=== PATIENT | female | born 1960 | race Caucasian/White ===

== ENCOUNTER 2021-02-15 08:58 | Emergency (ER) | payer BC, SELFPAY ==
[2021-02-15 09:48] VITALS: BP 160/108; PULSE 87; RESP 18; TEMP 37.2; O2SAT 99
--- NOTE | 2021-02-15 10:13 | ED.GIBLEED ---
HPI - GI Bleed General Chief complaint: GI Bleed Stated complaint: abdominal pain, blood in stool Time Seen by Provider: 02/15/21 09:52 History of Present Illness HPI Narrative: Rectal bleeding since this last night. She had suddeen onset of lower abdominal cramping and diarrhea. She notes that this was associated with light headedness. EMS came and checked her and she chose not to come in. She had another episode this morning and passed a large clot and decided to come in she continues to have abdominal cramping and mild nausea. No fever. Related Data Home Medications Medication Instructions Recorded Confirmed celecoxib mg 02/15/21 02/15/21 citalopram mg 02/15/21 levothyroxine 02/15/21 lisinopril 02/15/21 Allergies Allergy/AdvReac Type Severity Reaction Status Date / Time gadobenic acid Allergy Unknown Verified 02/15/21 11:53 [From contrast - MRI] Iodinated Contrast Media Allergy Unknown Verified 02/15/21 11:53 iohexol Allergy Unknown Verified 02/15/21 11:53 [From contrast - CT, X-RAY] Review of Systems Review of Systems: All systems reviewed & are unremarkable except as noted in HPI and below Constitutional: Constitutional: Denies chills, Denies fever(s) and Denies weakness Cardiovascular: Cardiovascular: Denies chest pain Respiratory: Respiratory: Denies dyspnea Gastrointestinal: Gastrointestinal: Reports abdominal pain, Reports diarrhea, Reports nausea and Denies vomiting Genitourinary: Genitourinary: Denies hematuria and Denies dysuria Neurologic: Denies numbness and Denies weakness FOR[facility]LY [facility] Past Medical History Medical History (Updated 02/15/21 @ 11:49 by Noel Childs MD) HTN (hypertension) Hypothyroidism Social History Social History (Updated 02/15/21 @ 11:47 by Noel Childs MD) Smoking status: Never smoker Exam Const: General: healthy appearing, no acute distress and alert Orientation/consciousness: patient oriented x3 HENMT: Head: normal to inspection Neck: Neck: normal visual inspection Resp: Effort & Inspection: normal respiratory effort Auscultation: clear to auscultation bilaterally Cardio: Rate: regular rate Rhythm: regular rhythm GI: Inspection: non-distended GI Palp: Yes Soft to palpation and No Tenderness to palpation present (GI) Auscultation: normal bowel sounds Skin: General skin exam: normal color and no pallor Neuro: General: patient oriented x3, moves all extremities, no focal motor deficits and CN's II-XI intact bilaterally Speech: normal speech Extrem: General: normal to inspection Psych: Affect: Anxious affect present Course Vital Signs Vital signs: Vital Signs Temperature 37.2 C 02/15/21 09:48 Pulse Rate 87 02/15/21 09:48 Respiratory Rate 18 02/15/21 09:48 Blood Pressure 160/108 H 02/15/21 09:48 Pulse Oximetry 99 02/15/21 09:48 Temperature 37.2 C 02/15/21 09:48 Pulse Rate 77 02/15/21 12:32 Respiratory Rate 18 02/15/21 12:32 Blood Pressure 166/89 H 02/15/21 12:32 Pulse Oximetry 100 02/15/21 12:32 MDM - GI Bleed MDM Narrative Medical decision making narrative: H/H reassuring. Most likely infectious enteritis. Vitials stable. I will start antibiotics and have her follow-up with PCP for any continued issues. Differential Diagnosis Differential diagnosis: Likely hemorrhoids, infectious diarrhea, Lower gastrointestinal hemorrhage and hematochezia Medical Records Attestation: I reviewed the patient's medical records. Lab Data Attestation: I reviewed the patient's lab results. Result diagrams: 02/15/21 10:13 02/15/21 10:13 Labs: Lab Results 02/15/21 02/15/21 02/15/21 Range/Units 10:13 10:13 10:27 WBC 12.2 H (4.5-10.0) K/mm3 RBC 5.48 H (4.2-5.4) M/mm3 Hgb 15.5 H (12.0-15.0) g/dL Hct 49.0 H (37.0-47.0) % MCV 89.4 (80-100) fl MCH 28.3 (26-34) pg MCHC 31.6 L (32-36) g/dl RDW 13.2 (11.5-14.5) % Plt Count
[2021-02-15 10:33] LABS: Basophils Percent Auto 0.3 % (0.2-1.2); Eosinophils Absolute Auto 0.2 K/mm3 (0-0.3); Eosinophils Percent Auto 1.5 % (0-4.4); Hemoglobin 15.5 g/dL (12.0-15.0); Immature Granulocyte Absolute 0.05 K/mm3 (0.00-0.031); Immature Granulocyte Percent A 0.4 % (0-0.5); Lymphocytes Percent Auto 13.9 % (18.3-44.2); Mean Corpuscular HGB Conc 31.6 g/dl (32-36); Mean Corpuscular Hemoglobin 28.3 pg (26-34); Mean Corpuscular Volume 89.4 fl (80-100); Mean Platelet Volume 11.4 fl (7.4-10.4); Monocytes Percent Auto 8.1 % (2.6-8.5); Neutrophils Absolute Auto 9.2 K/mm3 (1.3-6.7); Neutrophils Percent Auto 75.8 % (45.5-73.1); Platelet Count Result 355 k/mm3 (150-375); Red Blood Count 5.48 M/mm3 (4.2-5.4); Red Cell Distribution Width 13.2 % (11.5-14.5); White Blood Count 12.2 K/mm3 (4.5-10.0)
[2021-02-15] MEDS: SODIUM CHLORIDE 0.9% IV 1,000 ML 999 ML IV CONT (10:37)
[2021-02-15 10:43] LABS: Alanine Aminotransferase 23 U/L (4-35); Albumin Level 4.7 g/dL (3.5-5.1); Alkaline Phosphatase 73 U/L (38-126); Anion Gap 10 mmol/L (8-16); Aspartate Amino Transferase 29 U/L (14-36); Bilirubin,Total 0.6 mg/dL (0.2-1.3); Blood Urea Nitrogen 10 mg/dL (7-17); Calcium 10.6 mg/dL (8.4-10.2); Carbon Dioxide 29 mmol/L (22-30); Chloride 103 mmol/L (98-107); Estimated CRCL calculation 90 ml/min; Estimated Glomerular Filt Rate > 60; Glucose 104 mg/dL (65-105); Potassium 3.7 mmol/L (3.4-5.0); Sodium 142 mmol/L (137-145)
[2021-02-15 10:50] LABS: Prothrombin Time 14.2 Seconds (11.1-14.7)
[2021-02-15 11:45] VITALS: BP 190/105
[2021-02-15 11:49] VITALS: BP 192/117
[2021-02-15 11:52] VITALS: BP 211/129; BP 212/129; PULSE 77; RESP 18; O2SAT 98
[2021-02-15] MEDS: AMOXICILLIN/CLAVULANATE K 875-125 MG TAB 1 TABLET PO (11:55)
--- NOTE | 2021-02-15 12:03 | PC.NURSE ---
Patient dropped first Augmentin tablet on floor.
[2021-02-15 12:05] VITALS: BP 210/113; PULSE 80; RESP 18; O2SAT 100
--- NOTE | 2021-02-15 12:05 | PC.NURSE ---
CA Childs notified of patient's current blood pressure of 210/113.
[2021-02-15] MEDS: LABETALOL HCL INJ 100 MG/20 ML VIAL 10 MG IV PUSH (12:14)
[2021-02-15 12:32] VITALS: BP 166/89; PULSE 77; RESP 18; O2SAT 100
== END 2021-02-15 12:32 | disposition home or self-care (01) ==
PROVIDERS: Emergency Provider Emergency Medicine
DX: K52.9 Noninfective gastroenteritis and colitis, unspecified (principal); I10 Essential (primary) hypertension; E03.9 Hypothyroidism, unspecified
CPT/HCPCS: 36415; 80053; 85025; 85610; 85730; 86850; 86900; 86901; 96361; 96374; 99284; A9270; J7030

== ENCOUNTER 2021-07-05 01:47 | Day surgery (SDC) | payer BC, SELFPAY ==
[2021-06-14 14:17] VITALS: BMI 37.8
[2021-07-05 08:35] VITALS: BP 175/105; PULSE 89; RESP 24; TEMP 36.3; O2SAT 100; BMI 38.9
[2021-07-05] MEDS: LACTATED RINGERS 1,000 ML 150 ML IV CONT (08:41)
--- NOTE | 2021-07-05 08:51 | WPDANESEPPF ---
Anes - Initial Pre Proc Eval Procedure: Operation Date: 07/05/21 09:30 Proposed Procedures p Screening Colonoscopy - Herber Andrew MD Date/Time: 07/05/21 08:51 Surgeon: Herber Andrew MD Pre Op Diagnosis: neoplasm screening Patient Data Age: 61 Gender: F Height: 1.65 m Weight: 106 kg Last Vital Signs Temp 36.3 C L 07/05/21 08:35 Pulse 89 07/05/21 08:35 Resp 24 H 07/05/21 08:35 BP 175/105 H 07/05/21 08:35 Pulse Ox 100 07/05/21 08:35 Allergies Allergy/AdvReac Type Severity Reaction Status Date / Time gadobenic acid Allergy Unknown unknow Verified 07/05/21 08:35 [From contrast - MRI] Iodinated Contrast Media Allergy Unknown Unknown Verified 07/05/21 08:35 iohexol Allergy Unknown Unknown Verified 07/05/21 08:35 [From contrast - CT, X-RAY] Home Medications Medication Instructions Recorded Confirmed Type celecoxib 100 mg PO BID 02/15/21 06/14/21 History citalopram 20 mg PO DAILY 02/15/21 06/14/21 History lisinopril 30 mg PO DAILY 02/15/21 06/14/21 History simvastatin 5 mg tablet 5 mg PO DAILY 04/08/21 06/14/21 History cholecalciferol (vitamin D3) 125 mcg PO DAILY 06/14/21 06/14/21 History [Vitamin D3] levothyroxine 112 mcg PO DAILY 06/14/21 06/14/21 History Patient hx anesthesia problems: none Family hx anesthesia problems: none Results Review: All pre-operative results and documents have been reviewed as part of the pre-operative evaluation. [facility] Past Medical History Medical History Anxiety Breast cancer Colon cancer screening Disorder of thyroid HTN (hypertension) Hypothyroidism Surgical History Surgical History H/O mastectomy Family History Family History Mother Cancer Hypertension Disorder of thyroid Social History Social History Smoking status: Never smoker Alcohol intake: current Drinks per week: 1 Substance use: current Substance use type: marijuana Other substance usage details: OCCASIONALLY Living arrangements: with family Spiritual care concerns: No Anes - Eval Final PreProcedure Day of Procedure 07/05/21 08:51 Patient weight: obese Heart: regular rate and rhythm Lungs: clear to auscultation Airway: Mallampati scale class II Neurological: alert and oriented Last oral intake: >/= 8 hours ASA classification: III Emergent: no Anesthetic plan: proceed Anesthesia type and monitoring: general GIVS and standard monitoring Results Review: All pre-operative results and documents have been reviewed as part of the pre-operative evaluation. Informed Consent: The patient's anesthetic plan and its attendant risks and benefits were discussed with the patient/family/POA. Questions were solicited and answers provided to the satisfaction of the patient/family/POA.
--- NOTE | 2021-07-05 09:02 | PM.HPGS ---
History of Present Illness History of Present Illness Consent: Risks, benefits, and alternatives have been discussed and questions answered. Patient agrees to proceed with procedure. Chief complaint: neoplasm screening Narrative: Araceli Lim is a 61 year old female here for first screening colonoscopy, previously had negative cologuard Review of Systems Constitutional: Constitutional: Denies headache(s) and Denies weakness Eyes: Eyes: Denies blurry vision ENT: Reports Normal hearing present, Denies headache(s) and Denies neck pain Cardiovascular: Cardiovascular: Denies chest pain and Denies dyspnea Respiratory: Respiratory: Denies dyspnea Gastrointestinal: Gastrointestinal: Reports no additional gastrointestinal complaints Genitourinary: Genitourinary: Denies dysuria Musculoskeletal: Musculoskeletal: Denies neck pain Integumentary/Breasts: Skin/Breast: Denies dry skin Neurologic: Reports Normal hearing present, Denies headache(s) and Denies weakness Psychiatric: Psychiatric: Denies anxiety Endocrine: Endocrine: Denies change in body appearance Hematologic/Lymphatic: Hematologic/Lymphatic: Denies easy bleeding Allergic/Immunologic: Allergic/Immunologic: Denies urticaria PMFSH Past Medical History Medical History Anxiety Breast cancer Colon cancer screening Disorder of thyroid HTN (hypertension) Hypothyroidism Surgical History Surgical History H/O mastectomy Family History Family History Mother Cancer Hypertension Disorder of thyroid Social History Social History Smoking status: Never smoker Alcohol intake: current Drinks per week: 1 Substance use: current Substance use type: marijuana Other substance usage details: OCCASIONALLY Living arrangements: with family Spiritual care concerns: No Meds Home Medications and Allergies Home Medications Medication Instructions Recorded Confirmed Type celecoxib 100 mg PO BID 02/15/21 06/14/21 History citalopram 20 mg PO DAILY 02/15/21 06/14/21 History lisinopril 30 mg PO DAILY 02/15/21 06/14/21 History simvastatin 5 mg tablet 5 mg PO DAILY 04/08/21 06/14/21 History cholecalciferol (vitamin D3) 125 mcg PO DAILY 06/14/21 06/14/21 History [Vitamin D3] levothyroxine 112 mcg PO DAILY 06/14/21 06/14/21 History Allergies Allergy/AdvReac Type Severity Reaction Status Date / Time gadobenic acid Allergy Unknown unknow Verified 07/05/21 08:35 [From contrast - MRI] Iodinated Contrast Media Allergy Unknown Unknown Verified 07/05/21 08:35 iohexol Allergy Unknown Unknown Verified 07/05/21 08:35 [From contrast - CT, X-RAY] Vital Signs Vital Signs - 24 hr 07/05/21 08:35 Temperature 97.3 F L Pulse Rate 89 Respiratory Rate 24 H Blood Pressure 175/105 H Pulse Oximetry 100 Exam Const: General: comfortable and no acute distress HENMT: General nose exam: Normal nares present Eyes: General: appearance normal, both eyes and all related structures Neck: Neck: no JVD Resp: Auscultation: clear to auscultation bilaterally Cardio: Rate: regular rate Rhythm: regular rhythm GI: Inspection: non-distended GI Palp: Yes Soft to palpation Skin: General skin exam: normal color Neuro: General: gait normal Speech: normal speech Extrem: General: normal to inspection Psych: Mental Status: mental status grossly normal Assessment and Plan Assessment and plan (1) Colon cancer screening: Code(s): Z12.11 - Encounter for screening for malignant neoplasm of colon Status: Acute Assessment and Plan: colonoscopy
[2021-07-05 09:29] VITALS: BP 175/105; PULSE 66; RESP 13; O2SAT 98
[2021-07-05 09:39] VITALS: BP 130/82; PULSE 65; RESP 16; O2SAT 97
[2021-07-05 09:49] VITALS: BP 145/87; PULSE 65; RESP 20; O2SAT 98
== END 2021-07-05 10:05 | disposition home or self-care (01) ==
PROVIDERS: PCP Family Medicine; Visit Provider Internal Medicine Gastroenterology
PROC: 0DJD8ZZ Inspection of Lower Intestinal Tract, Via Natural or Artificial Opening Endoscopic (ICD-10-PCS; CPT 45378; principal; 2021-07-05 09:30)
DX: Z12.11 Encounter for screening for malignant neoplasm of colon (principal); K64.8 Other hemorrhoids; D12.2 Benign neoplasm of ascending colon; D12.3 Benign neoplasm of transverse colon; F41.9 Anxiety disorder, unspecified; E03.9 Hypothyroidism, unspecified; F12.90 Cannabis use, unspecified, uncomplicated; E66.9 Obesity, unspecified; Z68.38 Body mass index [BMI] 38.0-38.9, adult
CPT/HCPCS: 45385; 88305; J2704; J7120

== ENCOUNTER 2022-03-17 07:53 | Outpatient (CLI) | payer BC, SELFPAY | END 2022-03-17 07:54 | disposition home or self-care (01) | LOC: ANHAUDASC 07:54 | PROVIDERS: PCP Family Medicine; Visit Provider Family Medicine | DX: H90.3 Sensorineural hearing loss, bilateral (principal) | CPT/HCPCS: 92557; 92567 ==

== ENCOUNTER 2022-06-01 08:00 | Outpatient (RCR) | payer BC, SELFPAY | END 2022-07-06 23:59 | disposition home or self-care (01) | LOC: ANHAUDASC 08:00 | PROVIDERS: PCP Family Medicine; Visit Provider Family Medicine | DX: Z46.1 Encounter for fitting and adjustment of hearing aid (principal) | CPT/HCPCS: 99199; V5261 ==

== ENCOUNTER 2022-07-26 09:24 | Outpatient (CLI) | payer BC, SELFPAY ==
--- NOTE | 2022-07-26 09:32 | ECG_ITS ---
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
[2022-07-26 10:02] LABS: Prothrombin Time 12.8 Seconds (11.1-14.7)
[2022-07-26 10:03] LABS: Partial Thromboplastin Time 26.5 SECONDS (22.3-36.8)
[2022-07-26 10:06] LABS: Anion Gap 9 mmol/L (8-16); Blood Urea Nitrogen 14 mg/dL (7-17); Calcium 9.9 mg/dL (8.4-10.2); Carbon Dioxide 29 mmol/L (22-30); Chloride 101 mmol/L (98-107); Estimated Glomerular Filt Rate > 60; Glucose 140 mg/dL (65-110); Potassium 4.2 mmol/L (3.4-5.0); Sodium 139 mmol/L (137-145)
== END 2022-07-26 09:25 | disposition home or self-care (01) ==
PROVIDERS: Anesthesiology; PCP Family Medicine; Visit Provider Urology
DX: N20.0 Calculus of kidney (principal); I10 Essential (primary) hypertension; Z79.899 Other long term (current) drug therapy; Z01.818 Encounter for other preprocedural examination; R94.31 Abnormal electrocardiogram [ECG] [EKG]
CPT/HCPCS: 36415; 80048; 85610; 85730; 87086; 93005

== ENCOUNTER 2022-07-29 01:05 | Day surgery (SDC) | payer BC, SELFPAY ==
--- NOTE | 2022-07-19 07:30 | PM.HPGS ---
History of Present Illness History of Present Illness Consent: Risks, benefits, and alternatives have been discussed and questions answered. Patient agrees to proceed with procedure. Chief complaint: right kidney stones Narrative: Araceli Lim is a 62 year old female with remote history of right ureteral injury during the gynecological surgery. She recently had some right flank pain and CT imaging that demonstrated a 12 mm lightly calcified stone overlying the right kidney. She presents for right ESWL. She is aware of the risk including, but not limited to, residual fragments that were a require additional intervention, postoperative hematuria and perinephric hematoma Review of Systems Cardiovascular: Cardiovascular: Denies chest pain, Denies lightheadedness, Denies palpitations and Denies dyspnea Respiratory: Respiratory: Denies dyspnea Gastrointestinal: Gastrointestinal: Denies diarrhea, Denies nausea and Denies vomiting Genitourinary: Genitourinary: Denies hematuria and Denies dysuria Endocrine: Endocrine: Denies palpitations PMFSH Past Medical History Medical History Anxiety Breast cancer Colon cancer screening Disorder of thyroid HTN (hypertension) Hypothyroidism Surgical History Surgical History H/O mastectomy Family History Family History Mother Cancer Hypertension Disorder of thyroid Social History Social History Smoking status: Never smoker Alcohol intake: current Drinks per week: 1 Substance use: current Substance use type: marijuana Other substance usage details: OCCASIONALLY Spiritual care concerns: No Meds Home Medications and Allergies Home Medications Medication Instructions Recorded Confirmed Type celecoxib 100 mg capsule 100 mg PO BID 02/15/21 06/14/21 History citalopram 20 mg tablet 20 mg PO DAILY 02/15/21 06/14/21 History lisinopril 30 mg tablet 30 mg PO DAILY 02/15/21 06/14/21 History simvastatin 5 mg tablet 5 mg PO DAILY 04/08/21 06/14/21 History cholecalciferol (vitamin D3) 125 125 mcg PO DAILY 06/14/21 06/14/21 History mcg (5,000 unit) tablet (Vitamin D3) levothyroxine 112 mcg tablet 112 mcg PO DAILY 06/14/21 06/14/21 History Allergies Allergy/AdvReac Type Severity Reaction Status Date / Time gadobenic acid Allergy Unknown unknow Verified 07/05/21 08:35 [From contrast - MRI] Iodinated Contrast Media Allergy Unknown Unknown Verified 07/05/21 08:35 iohexol Allergy Unknown Unknown Verified 07/05/21 08:35 [From contrast - CT, X-RAY] Exam Const: General: no acute distress Resp: Effort & Inspection: normal respiratory effort GI: Inspection: non-distended GI Palp: No abdominal tenderness and No Guarding due to palpation present (GI) Auscultation: normal bowel sounds Assessment and Plan Assessment and plan (1) Right renal stone: Code(s): N20.0 - Calculus of kidney Status: Acute Assessment and Plan: 12 mm slightly calcified right renal calculus. Plan for right ESWL. If there is difficulty visualizing the stone we will proceed with cystoscopy and right retrograde pyelography
[2022-07-25 08:44] VITALS: BMI 41.5
--- NOTE | 2022-07-25 08:51 | PC.NURSE ---
Report to the Outpatient Waiting Room, entrance under the green pavilion located off [facility], at time 6:00 on date 07/29/22. Planned Procedure Time: 7:30. Time changes happen often and if your time is changed the preop area will call you the afternoon before. - You and your visitor will be asked to self-screen and do not enter if you have any COVID symptoms. - Only one visitor is requested with a max of two and NO children visitors are allowed at this time. - The patient visitor may be requested to leave or wait in car when not with patient due to distancing restrictions. - A mask is optional within the hospital. Patients may have clear liquids (water, carbonated beverages, clear teas, apple juice) until 3 hours prior to surgery (4:30) with a maximum of 20 ounces. - No food from midnight until time of surgery Take the following medications with a SIP of water the morning of surgery: AMLODIPINE, CITALOPRAM, LEVOTHYROXINE Medications to discontinue per physician: CELEBREX, VITAMINS Date to take last dose: NO MORE UNTIL AFTER SURGERY Please no make-up, nail czech, hairspray, perfume, deodorant, or body powder the day of surgery. No jewelry (including any body piercings) or valuables the day of surgery, leave them at home. Please take a shower or bath the night before, or the morning of, surgery with an antibacterial soap. Wear comfortable, loose fitting clothing. - Jewelry must be removed prior to entering the operating room. Rings and piercings that are not removed may be cut off. - The hospital will not accept responsibility for valuables. - Please leave all valuables, including medications, at home the day of surgery. If you are going home after surgery, a licensed set key driver must drive you home. - NO public transportation without another adult if you receive anesthesia. - We recommend that an adult stay with you for 24 hours following discharge. - We also recommend that you do not drive, make important decision, drink alcoholic beverages, or take any drugs that were not prescribed by your health care provider for at least 24 hours after your discharge time. Follow any additional instructions given to you from your surgeon. If you or anyone in your household have experienced Covid symptoms in the past week, please notify your surgeon or the nurse liaison at the phone number below for possible testing. Telephone instructions given to PT - TORO LUCIA and asked if any additional questions and then verbalized understanding. Patient advised to call surgeon office or pre surgery nurse liaison [phone] if any additional questions.
--- NOTE | ~2022-07-29 | CT_ITS ---
EXAMINATION: CT abdomen pelvis wo con DATE: 07/29/2022 07:15 INDICATION: Right kidney stone. TECHNIQUE: Computed tomography (CT) of the abdomen and pelvis was performed without intravenous contr ast. Automated exposure control and iterative reconstruction technique were employed. The dose-length product was 747.52 mGy-cm. COMPARISON: CT abdomen and pelvis 03/27/2017 FINDINGS: The visualized portions of the lung bases demonstrate mild atelectasis. There is a cluster of nodules in left lower lobe measuring up to 5 mm, likely infection. No pleural effusion. The heart size is normal. No pericardial effusion. There is diffuse hepatic steatosis. The gallbladder, spleen, pancreas, and adrenal glands are normal. There is mild atrophy of right kidney. There is a 14 mm cys t in right kidney with 2 small wall calcifications. There is a 3 mm calcification in right kidney inf erior pole that may be parenchymal. There are phleboliths in the right ovarian vein. There are phlebo liths in the pelvis. There is a 14 mm cyst in left kidney. There is diverticulosis of the colon witho ut evidence of diverticulitis. The appendix is normal. There is an infraumbilical ventral hernia cont aining nonobstructed small and large bowel. There are no pathologically enlarged lymph nodes. There i s no free intraperitoneal fluid. There is an umbilical hernia containing fat. There is a supraumbilic al ventral hernia containing fat. There is moderate thoracolumbar spondylosis. IMPRESSION: 1. No definite urolithiasis. Calcifications in right kidney are likely parenchymal. 2. Multiple ventral hernias, one of which contains nonobstructed small and large bowel. Reviewed, dictated and finalized at location A. E SCENE INVESTIGATOR IMPRESSION: 1. No definite urolithiasis. Calcifications in right kidney are likely parenchy mal. 2. Multiple ventral hernias, one of which contains nonobstructed small and larg e bowel.
--- NOTE | ~2022-07-29 | XR_ITS ---
EXAMINATION: XR abdomen/kub 1V DATE: 07/29/2022 06:22 INDICATION: Kidney stone. TECHNIQUE: A supine view of the abdomen on 2 radiographs was obtained. COMPARISON: CT 03/27/2017 FINDINGS: There are no dilated loops of bowel. Bowel extends inferior to the bony pelvis correlating with a ventral hernia on the prior CT. There is a 2 mm stone in right kidney lower pole. There are nu merous calcifications overlying the pelvis. Again seen is a phlebolith in right ovarian vein at L5. T here are surgical clips in right lower quadrant. IMPRESSION: 1. 2 mm right kidney stone. 2. Calcifications in the pelvis, at least most of which are likely phleboliths. Distal ureteral stone cannot be excluded. Reviewed, dictated and finalized at location A. COLORER
--- NOTE | 2022-07-29 06:44 | WPDHPUPDATE1 ---
History and Physical Update Update Date/Time: 07/29/22 06:44 History and Physical has been reviewed, including an updated exam of the patient. There are NO changes in the patient's condition. Risks, benefits, and alternatives have been discussed and questions answered. Patient agrees to proceed with procedure.
[2022-07-29 06:45] VITALS: BP 143/76; PULSE 78; RESP 16; TEMP 36.2; O2SAT 98
[2022-07-29] MEDS: LACTATED RINGERS 1,000 ML 30 ML IV CONT (06:45)
--- NOTE | 2022-07-29 07:05 | WPDANESEPPF ---
Anes - Initial Pre Proc Eval Procedure: Operation Date: 07/29/22 07:30 Proposed Procedures p Right Extracorporeal Shock Wave Lithotripsy - Brian Perez MD s Possible Cystoscopy, Possible Right Retrograde Pyelogram - Brian Perez MD Date/Time: 07/29/22 07:05 Surgeon: Brian Perez MD Pre Op Diagnosis: right kidney stones Patient Data Age: 62 Gender: F Height: 1.65 m Weight: 113.4 kg Allergies Allergy/AdvReac Type Severity Reaction Status Date / Time gadobenic acid Allergy Unknown Hives Verified 07/25/22 08:41 [From contrast - MRI] Iodinated Contrast Media Allergy Unknown Hives Verified 07/25/22 08:41 iohexol Allergy Unknown Hives Verified 07/25/22 08:41 [From contrast - CT, X-RAY] adhesive tape Allergy Blister Verified 07/25/22 08:42 Home Medications Medication Instructions Recorded Confirmed Type celecoxib 100 mg capsule 100 mg PO BID 02/15/21 07/25/22 History citalopram 20 mg tablet 20 mg PO DAILY 02/15/21 07/25/22 History lisinopril 30 mg tablet 30 mg PO DAILY 02/15/21 07/25/22 History simvastatin 5 mg tablet 5 mg PO DAILY 04/08/21 07/25/22 History cholecalciferol (vitamin D3) 125 125 mcg PO DAILY 06/14/21 07/25/22 History mcg (5,000 unit) tablet (Vitamin D3) levothyroxine 112 mcg tablet 112 mcg PO DAILY 06/14/21 07/25/22 History amlodipine 5 mg tablet 5 mg PO DAILY 07/25/22 07/25/22 History hydrochlorothiazide 12.5 mg tablet 12.5 mg PO DAILY 07/25/22 07/25/22 History Patient hx anesthesia problems: post op nausea/vomiting Family hx anesthesia problems: none Results Review: All pre-operative results and documents have been reviewed as part of the pre-operative evaluation. [facility]LY [facility], [facility] Past Medical History Medical History Anxiety Breast cancer Colon cancer screening Disorder of thyroid HTN (hypertension) Hypothyroidism Surgical History Surgical History H/O mastectomy Family History Family History Mother Cancer Hypertension Disorder of thyroid Social History Social History Smoking status: Never smoker Alcohol intake: current Drinks per week: 1 Alcohol use details: 2 Substance use: former Substance use type: marijuana Other substance usage details: OCCASIONALLY Living arrangements: with family Spiritual care concerns: No Anes - Eval Final PreProcedure Day of Procedure 07/29/22 07:05 Patient weight: morbidly obese Heart: regular rate and rhythm Lungs: clear to auscultation Airway: Mallampati scale class II Neurological: alert and oriented Last oral intake: >/= 8 hours ASA classification: III Emergent: no Anesthetic plan: proceed Anesthesia type and monitoring: general LMA and standard monitoring Results Review: All pre-operative results and documents have been reviewed as part of the pre-operative evaluation. Informed Consent: The patient's anesthetic plan and its attendant risks and benefits were discussed with the patient/family/POA. Questions were solicited and answers provided to the satisfaction of the patient/family/POA.
--- NOTE | 2022-07-29 09:38 | SUR.PREOP ---
0742: surgery cancelled as stone is not visible via kub and ct. after pt and katie pace, plan to cancel surgery today and re-eval in 6mo in office. dc instructions given an pt dc'd w/ partner ambulatory.
== END 2022-07-29 09:42 | disposition home or self-care (01) ==
PROVIDERS: PCP Family Medicine; Visit Provider Urology
PROC: (CPT 50590; principal; 2022-07-29 07:30)
PROC: (CPT 52352; 2022-07-29 07:30)
DX: N20.0 Calculus of kidney (principal); I10 Essential (primary) hypertension; E03.9 Hypothyroidism, unspecified; F41.9 Anxiety disorder, unspecified; Z85.3 Personal history of malignant neoplasm of breast; F12.90 Cannabis use, unspecified, uncomplicated; Z53.8 Procedure and treatment not carried out for other reasons
CPT/HCPCS: 36415; 74018; 74176; 80048; 85610; 85730; 87086; 93005; 99211; A9270; G0463; J2250; J3010; J7030; J7120

== ENCOUNTER 2023-11-22 21:08 | Emergency (ER) | payer BC, SELFPAY ==
--- NOTE | ~2023-11-22 | XR_ITS ---
EXAM: XR shoulder RT min 2V DATE: 11/22/2023 21:31 HISTORY: fall WITH RIGHT SHOULDER PAIN . COMPARISON: None available. FINDINGS: Surgical clips project over the right axilla, right lung apex, and right hilum. Normal min eralization. No fracture or dislocation. No lytic or blastic lesion. Mild acromioclavicular joint and glenohumeral joint osteoarthritis. No erosion or periosteal change. Soft tissues within normal limit s. IMPRESSION: No acute osseous finding in the right shoulder. Reviewed, dictated and finalized at location K.
--- NOTE | ~2023-11-22 | XR_ITS ---
EXAMINATION: [id number] Exam Date/Time: 11/22/2023 21:35 CDT HISTORY: right rib pain after fall Comparison: None available. RESULT: Lines, tubes, and devices: Bilateral axillary surgical clips. Additional surgical clips project over the bilateral florencio and chest. Lungs and pleura: Clear. Cardiothymic silhouette: Stable. Other: No acute osseous or upper abdominal finding. IMPRESSION: No acute cardiopulmonary process. No acute osseous finding in the right ribs. Reviewed, dictated and finalized at location K.
[2023-11-22 21:09] VITALS: BP 149/83; PULSE 72; RESP 19; TEMP 36.6; O2SAT 100
--- NOTE | 2023-11-22 21:41 | ED.GENADULT ---
HPI - General Adult General Chief complaint: Extremity Injury, Upper Stated complaint: shoulder injury Time Seen by Provider: 11/22/23 21:17 Source: patient Mode of arrival: ambulatory Limitations: no limitations History of Present Illness HPI narrative: this is a 63-year-old female who presents to the ED with chief complaint of right shoulder injury that occurred just prior to arrival. Patient was going down steps, missed the last step and fell into the wall. States that she braced her fall with her right arm and had pain to the right shoulder. she reports that she went to the ground but did not have any head injury or LOC. reports some mild right-sided rib pain as well. Denies shortness of breath, cough, numbness, weakness or other site of injury. Related Data Home Medications Medication Instructions Recorded Confirmed celecoxib 100 mg capsule 100 mg PO BID 02/15/21 07/29/22 citalopram 20 mg tablet 20 mg PO DAILY 02/15/21 07/29/22 lisinopril 30 mg tablet 30 mg PO DAILY 02/15/21 07/29/22 simvastatin 5 mg tablet 5 mg PO DAILY 04/08/21 07/29/22 cholecalciferol (vitamin D3) 125 125 mcg PO DAILY 06/14/21 07/29/22 mcg (5,000 unit) tablet (Vitamin D3) levothyroxine 112 mcg tablet 112 mcg PO DAILY 06/14/21 07/29/22 amlodipine 5 mg tablet 5 mg PO DAILY 07/25/22 07/29/22 hydrochlorothiazide 12.5 mg tablet 12.5 mg PO DAILY 07/25/22 07/29/22 Allergies Allergy/AdvReac Type Severity Reaction Status Date / Time gadobenic acid Allergy Unknown Hives Verified 11/22/23 21:13 [From contrast - MRI] Iodinated Contrast Media Allergy Unknown Hives Verified 11/22/23 21:13 iohexol Allergy Unknown Hives Verified 11/22/23 21:13 [From contrast - CT, X-RAY] adhesive tape Allergy Blister Verified 11/22/23 21:13 Review of Systems Review of Systems: All systems as dictated in [facility] Past Medical History Medical History Anxiety Breast cancer Colon cancer screening Disorder of thyroid HTN (hypertension) Hypothyroidism Surgical History Surgical History H/O mastectomy Family History Family History Mother Cancer Hypertension Disorder of thyroid Social History Social History Smoking status: Never smoker Alcohol intake: current Drinks per week: 1 Alcohol use details: 2 Substance use: former Substance use type: marijuana Other substance usage details: OCCASIONALLY Living arrangements: with family Spiritual care concerns: No Exam Narrative: GENERAL: Well-appearing, well-nourished, and in no acute distress. HEAD: Normocephalic, atraumatic. EYES: PERRLA and EOMI. ENT: Nares clear, no rhinorrhea or epistaxis. Mucous membranes moist. Oropharynx without tonsillar hypertrophy exudate or other lesions. NECK: Supple. No adenopathy or masses. CHEST: No respiratory distress. Clear to auscultation. No wheezes rales or rhonchi . Minimal tenderness to the chest wall. No bruising. HEART: Regular rate and rhythm. No murmur heard. Normal peripheral pulses. ABDOMEN: Soft, nontender, nondistended, normal active bowel sounds. MSK: Difficulty with range of motion of the right shoulder. No deformity. Mild tenderness throughout the right shoulder. Positive empty can test on the right. Neurovascularly intact distally. SKIN: Warm, dry, no rash. NEURO: Alert and oriented x3. No focal deficits. PSYCH: Normal mood and affect. Course Vital Signs Vital signs: Vital Signs Temperature 97.8 F 11/22/23 21:09 Pulse Rate 72 11/22/23 21:09 Respiratory Rate 19 11/22/23 21:09 Blood Pressure 149/83 H 11/22/23 21:09 Pulse Oximetry 100 11/22/23 21:09 Temperature 97.8 F 11/22/23 21:09 Pulse Rate 72 11/22/23 21:09 Respiratory Rate 19 11/22/23 21:
[2023-11-22] MEDS: HYDROcodone/acetaminophen (*CRX) 5-325 MG TABLET 1 TAB PO (21:47)
== END 2023-11-22 22:35 | disposition home or self-care (01) ==
PROVIDERS: Emergency Provider Physician Assistant; PCP Family Medicine Sports Medicine
DX: S46.911A Strain of unspecified muscle, fascia and tendon at shoulder and upper arm level, right arm, initial encounter (principal); I10 Essential (primary) hypertension; E03.9 Hypothyroidism, unspecified; Z85.3 Personal history of malignant neoplasm of breast; F41.9 Anxiety disorder, unspecified; Z90.10 Acquired absence of unspecified breast and nipple; W10.9XXA Fall (on) (from) unspecified stairs and steps, initial encounter
CPT/HCPCS: 71101; 73030; 99284; A4565; A9270

== ENCOUNTER 2025-03-10 07:55 | Outpatient (CLI) | payer BC, SELFPAY ==
--- OUTSIDE RECORDS SUMMARY | 2025-03-10 07:59 | XMS_ITS | Encounter Summary ---
Author Organization [employer] Address [address] [place] [address] Care Team Providers Care Powdered Sugar Supervisor Name Role Phone Lucero Chirinos MD Primary Care Provider [phone] Encounter Details Date Type Department Care Team (Late st Contact Info) Description 11/19/2007 Outpatient Historical [facility] Bismark Jade MD [address] [facility] [address] [place] [address] [place] [address] [facility] [address] [place] [address] Other Ureteric Obstruction Social History Tobacco Use Types Packs/Day Years Used Date Smoking Tobacco: Never Assessed Comments Unknown Sex and Gender Information Value Date Recorded Sex Assigned at Not on file 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 Gender Identity Not on file Sexual Orientation Not on file documented as of this encounter Plan of Treatment Not on file documented as of this encounter Procedures Procedure Name Priority Date/Time Associated Diagnosis Comments XR CYSTOGRAM Timed Study 11/19/2007 2:00 PM CDT documented in this encounter Results * XR CYSTOGRAM (11/19/2007 2:00 PM CDT) Anatomical Region Laterality Modality Pelvis Other 11/19/2007 2:00 PM CDT Narrative 11/22/2007 11:28 AM CDT [facility] [address] [place], [place] [address] Admit Date: 11/19/2007 ARACELI LIM Sex: F Admit Prov: BISMARK JADE Date: 1960 Primary Care Prov: CMRN: [id number] [facility] [address] [place] [address] IMAGING SERVICES Ordering Prov: N/A Accession Number: [id number] Interpretation Cystogram 11/19/2007 History: 593.4, ureteral obstruction Findings: The hospital clinic assistant radiograph demonstrates a nephrostomy tube in place on the right. Right internal ureteral stent and Yadav catheter are also in place. There are surgical clips in the pelvis on the right and skin bebeto in the low anterior abdominal wall. Water-soluble contrast was injected into the bladder through the existing Yadav catheter. Contrast fills a grossly normal appearing urinary bladder. There is no evidence of extravasation. There is no evidence of reflux into the right renal collecting system. Post drainage radiograph is normal. Impression: 1. Postoperative changes. 2. Otherwise normal cystogram. . Dictated by: JHONATAN STEPHEN 11/19/2007 15:38 Electronically signed by: JHONATAN STEPHEN 11/22/2007 11:28 Transcribed: 11/19/2007 18:12 AMK Procedure Note Jhonatan Stephen MD - 11/22/2007 [place] [id number] [place], [place] [address] Admit Date: 11/19/2007 ARACELI LIM Sex: F Admit Prov: BISMARK JADE Date: 1960 Primary Care Prov: CMRN: [id number] [facility] [id number] IMAGING SERVICES Ordering Prov: N/A Interpretation Cystogram 11/19/2007 History: 593.4, ureteral obstruction Findings: The hospital clinic assistant radiograph demonstrates a nephrostomy tube inplace on the right. Right internal ureteral stent and Yadav catheter are alsoin place. There are surgical clips in the pelvis on the right and skinstaples in the low anterior abdominal wall. Water-soluble contrast wasinjected into the bladder through the existing Yadav catheter. Contrast fillsa grossly normal appearing urinary bladder. There is no evidence of extravasation. There is no evidence of reflux into the right renal collecting system. Post drainage radiograph is normal. Impression: 1. Postoperative changes. 2. Otherwise normal cystogram. . Dictated by: JHONATAN STEPHEN 11/19/2007 15:38 Electronically signed by: JHONATAN STEPHEN 11/22/2007 11:28 Transcribed: 11/19/2007 18:12 AMK us Bismark K Kalie NO DIAGNOSTIC IMAGING ORDERABLE S Final Result documented in this encounter Visit Diagnoses Diagnosis Other ureteric obstruction documented in this encounter Care Teams Powdered Sugar Supervisor Relationship Specialty Start Date End Date Lucero Chirinos MD PCP - General Family Practice 01/22/15 documented as of this encounter
--- OUTSIDE RECORDS SUMMARY | 2025-03-10 07:59 | XMS_ITS | Encounter Summary ---
Author Organization [facility] Address [address] [place] [address] Phone Care Team Providers Care Rawhide Bone Roller Name Role Phone Lucero Chirinos MD Primary Care Provider Reason for Visit * Reason Comments Medication Refill Encounter Details Date Type Department Care Team (Late st Contact Info) Description 10/14/2021 Refill [facility] - Primary Care - [place] [address] [place] [address] Lucero Chirinos MD [address] [place] [address] Medication Refill Social History Tobacco Use Types Packs/Day Years Used Date Smoking Tobacco: Never Smokeless Tobacco: Never Alcohol Use Standard Drinks/Week Comments No 0 (1 standard drink = 0.6 oz pur e alcohol) PHQ-2 Answer Date Recorded Total Score - Questions 1-9 0 08/28 Education Answer Date Recorded What is the highest level of school you have completed or the highest degree you have received? Bachelor's degree (e.g., BA, AB, BS) 03/25/2021 Sexually Active Control Partners Comments Yes Comments No Sex and Gender Information Value Date Recorded Sex Assigned at Not on file Legal Sex Female 12:01 AM CDT Gender Identity Not on file Sexual Orientation Not on file documented as of this encounter Miscellaneous Notes * Telephone Encounter - Ana Ulrich RN - 10/14/2021 10:42 AM WAREHOUSE PROCESSOR Medication failed the protocol, provider to review and approve the medication order if appropriate. Requested Prescriptions Pending Prescriptions Disp Refills levothyroxine (SYNTHROID) 112 MCG Tablet [Pharmacy Med Name: LEVOTHYROXINE 0.112MG (112MCG) TABS] 90 Tablet 1 Sig: TAKE 1 TABLET BY MOUTH DAILY Thyroid Hormones Protocol Failed - 10/14/2021 10:32 AM Failed - Active on medication list Failed - Normal TSH in past 12 months TSH Date Value Ref Range Status 03/22/2021 0.069 (L) 0.270 - 4.200 mIU/L Final Passed - Visit with relevant provider in past 12 months or upcoming 90 days Recent Visits Date Type Provider Dept 03/26/21 Office Visit Lucero Chirinos MD [facility] [place] [address] 02/22/21 Office Visit Chrissy Melissa APRN, CUSTOM BOOKBINDER [facility] [address] [facility] Showing recent visits within past 365 days and meeting all other requirements Future Appointments No visits were found meeting these conditions. Showing future appointments within next 90 days and meeting all other requirements Signed Prescriptions Disp Refills simvastatin (ZOCOR) 10 MG Tablet 90 Tablet 1 Sig: TAKE 1 TABLET BY MOUTH EVERY EVENING Hmg CoA Reductase Inhibitors Protocol Passed - 10/14/2021 10:32 AM Passed - Visit with relevant provider in past 12 months or upcoming 90 days Recent Visits Date Type Provider Dept 03/26/21 Office Visit Lucero Chirinos MD [facility] [place] [address] 02/22/21 Office Visit Chrissy Melissa APRN, CUSTOM BOOKBINDER [facility] [place] [address] Showing recent visits within past 365 days and meeting all other requirements Future Appointments No visits were found meeting these conditions. Showing future appointments within next 90 days and meeting all other requirements Passed - Lipid panel in past 12 months LDL Date Value Ref Range Status 03/22/2021 70 5 - 130 mg/dL Final HDL CHOLESTEROL Date Value Ref Range Status 03/22/2021 42.9 >40 mg/dL Final CHOLESTEROL Date Value Ref Range Status 03/22/2021 137 <=200 mg/dL Final TRIGLYCERIDES Date Value Ref Range Status 03/22/2021 119 <150 mg/dL Final VLDL Date Value Ref Range Status 03/22/2021 24 5 - 55 mg/dL Final CHOL/HDL RATIO Date Value Ref Range Status 03/22/2021 3.2 0.0 - 4.4 Final NON-HDL CHOLESTEROL Date Value Ref Range Status 03/22/2021 94.1 <130 mg/dL Final HOUSE PROCESSOR documented in this encounter Plan of Treatment Not on file documented as of this encounter Visit Diagnoses Diagnosis Acquired hypothyroidism Unspecified hypothyroidism documented in this encounter Additional Health Concerns Assessment Noted Time PHQ-9 Depression Total Score: 0 09/14/19 21 4:00 PM WAREHOUSE PROCESSOR documented as of this encounter Care Teams Rawhide Bone Roller Relationship Specialty Start Date End Date Lucero Chirinos MD PCP - General Family Medicine 05/26/15 12/09/22 documented as of this encounter
--- OUTSIDE RECORDS SUMMARY | 2025-03-10 07:59 | XMS_ITS | Encounter Summary ---
Author Organization [employer] Address [address] [place] [address] Care Team Providers Care Deputy Grand Jury Name Role Phone Lucero Chirinos MD Primary Care Provider [phone] Encounter Details Date Type Department Care Team (Late st Contact Info) Description 11/26/2007 Outpatient Historical [facility] Bismark Jade MD [address] [address] David Thomas MD Department of Radiology [address] [place], [place] [id number] Other Ureteric Obstruction Social History Tobacco Use Types Packs/Day Years Used Date Smoking Tobacco: Never Assessed Comments Unknown Sex and Gender Information Value Date Recorded Sex Assigned at Not on file 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 Gender Identity Not on file Sexual Orientation Not on file documented as of this encounter Plan of Treatment Not on file documented as of this encounter Procedures Procedure Name Priority Date/Time Associated Diagnosis Comments IR TUBE PLACEMENT Routine 11/26/2007 10: 54 AM CDT documented in this encounter Results * IR TUBE PLACEMENT (11/26/2007 10:54 AM CDT) Anatomical Region Laterality Modality Other 11/26/2007 10:5 4 AM CDT Narrative 11/26/2007 4:48 PM CDT [facility] [address] [place], [place] [address] Admit Date: 11/26/2007 ARACELI LIM Sex: F Admit Prov: BISMARK JADE Date: 1960 Primary Care Prov: CMRN: [id number] [facility] [address] [place] [address] IMAGING SERVICES Ordering Prov: N/A Accession Number: [id number] Interpretation Right-sided antegrade nephrostogram and nephrostomy catheter removal on 11/26/2007 History: 47-year-old female with an indwelling right-sided nephrostomy catheter presents for evaluation and possible removal or exchange. Surgeon: David Thomas MD Indication: None Anesthesia: 1% lidocaine locally Procedure: Contrast was injected through an indwelling right-sided nephrostomy catheter demonstrating distal patency into the bladder. The catheter was then removed. The patient tolerated the procedure well. Impression: Patent right-sided ureter as described above. Removal of right-sided nephrostomy catheter. Please read report. . Dictated by: DAVID THOMAS F 11/26/2007 14:11 Electronically signed by: DAVID THOMAS F 11/26/2007 16:48 Transcribed: 11/26/2007 14:33 AMK Procedure Note David Thomas MD - 11/26/2007 [place] [id number] [place], [place] [address] Admit Date: 11/26/2007 ARACELI LIM Sex: F Admit Prov: BISMARK JADE Date: 1960 Primary Care Prov: CMRN: [id number] [facility] [id number] IM[facility]ING SERVICES Ordering Prov: N/A Interpretation Right-sided antegrade nephrostogram and nephrostomy catheter removalon 11/26/2007 History: 47-year-old female with an indwelling right-sidednephrostomy catheter presents for evaluation and possible removal or exchange. Surgeon: David Thomas MD Indication: None Anesthesia: 1% lidocaine locally Procedure: Contrast was injected through an indwelling right-sided nephrostomy catheter demonstrating distal patency into the bladder. The catheter was then removed. The patient tolerated the procedure well. Impression: Patent right-sided ureter as described above. Removal of right-sided nephrostomy catheter. Please read report. . Dictated by: DAVID THOMAS 11/26/2007 14:11 Electronically signed by: DAVID THOMAS 11/26/2007 16:48 Transcribed: 11/26/2007 14:33 AMK us Bismark K Kalie NO IR ORDERABLES Final Result documented in this encounter Visit Diagnoses Diagnosis Other ureteric obstruction documented in this encounter Care Teams Deputy Grand Jury Relationship Specialty Start Date End Date Lucero Chirinos MD PCP - General Family Practice 01/22/15 documented as of this encounter
--- OUTSIDE RECORDS SUMMARY | 2025-03-10 07:59 | XMS_ITS | Encounter Summary ---
Author Organization [facility] Address [address] [place] [address] Phone Care Team Providers Care Director Correctional Agency Name Role Phone Lucero Chirinos MD Primary Care Provider Reason for Visit * Reason Comments Medication Refill Encounter Details Date Type Department Care Team (Late st Contact Info) Description 09/29/2020 Refill [facility] - Primary Care - Amanda [address] [place] [address] Lucero Chirinos MD [address] [place] [address] Medication Refill Social History Tobacco Use Types Packs/Day Years Used Date Smoking Tobacco: Never Smokeless Tobacco: Never Alcohol Use Standard Drinks/Week Comments No 0 (1 standard drink = 0.6 oz pur e alcohol) PHQ-2 Answer Date Recorded Total Score - Questions 1-9 0 08/28 Sexually Active Control Partners Comments Yes Comments No Sex and Gender Information Value Date Recorded Sex Assigned at Not on file Legal Sex Female 12:01 AM CDT Gender Identity Not on file Sexual Orientation Not on file COVID-19 Exposure Response Date Recorded In the last month, have you been in contact with someone who was confirmed or suspected to have Coronavirus / COVID-19? No / Unsure 09/14/2020 3:59 PM SOCIAL SERVICE DIRECTOR documented as of this encounter Miscellaneous Notes * Telephone Encounter - Kalli Morales, ARIC - 09/29/2020 9:40 AM CST Per nursing clinical judgement, provider to review and approve the medication(s) order(s) if appropriate. Requested Prescriptions Pending Prescriptions Disp Refills simvastatin (ZOCOR) 10 MG Tablet [Pharmacy Med Name: SIMVASTATIN 10MG TABLETS] 90 Tab Sig: TAKE 1 TABLET BY MOUTH EVERY EVENING Cardiovascular: Antilipid - HMG-CoA Reductase Inhibitors Passed - 09/29/2020 9:40 AM Passed - Valid encounter within last 12 months Past Office Visits Recent Outpatient Visits 2 weeks ago Essential hypertension [facility] Lucero Chirinos MD 6 months ago Physical exam, annual (Adult) [facility] Lucero Chirinos MD 1 year ago Essential hypertension [facility] Lucero Chirinos MD 1 year ago Physical exam, annual (Adult) [facility] Lucero Chirinos MD 2 years ago Essential hypertension [facility] Lucero Chirinos MD Upcoming Appointments Future Appointments In 3 months Lucero Chirinos MD [facility] - Recent and Past Visits Recent Visits Date Type Provider Dept 09/14/20 Office Visit Lucero Chirinos MD [facility] 03/10/20 Office Visit Lucero Chirinos MD [facility] 07/22/19 Office Visit Lucero Chirinos MD [facility] Showing recent visits within past 460 days with a meds authorizing provider and meeting all other requirements Future Appointments No visits were found meeting these conditions. Showing future appointments within next 90 days with a meds authorizing provider and meeting all other requirements Signed Prescriptions Disp Refills Lisinopril 30 MG Tablet 90 Tab 1 Sig: TAKE 1 TABLET BY MOUTH DAILY Cardiovascular: BRIDGETT Inhibitors Passed - 09/29/2020 6:49 AM Passed - Valid encounter within last 12 months Past Office Visits Recent Outpatient Visits 2 weeks ago Essential hypertension [facility] Lucero Chirinos MD 6 months ago Physical exam, annual (Adult) [facility] Lucero Chirinos MD 1 year ago Essential hypertension [facility] Lucero Chirinos MD 1 year ago Physical exam, annual (Adult) [facility] Lucero Chirinos MD 2 years ago Essential hypertension [facility] Lucero Chirinos MD Upcoming Appointments Future Appointments In 3 months Lucero Chirinos MD [facility] INSIDE SALES ACCOUNT REPRESENTATIVE - Recent and Past Visits Recent Visits Date Type Provider Dept 09/14/20 Office Visit Lucero Chirinos MD [facility] 03/10/20 Office Visit Lucero Chirinos MD [facility] 07/22/19 Office Visit Lucero Chirinos MD [facility] Showing recent visits within past 460 days with a meds authorizing provider and meeting all other requirements Future Appointments No visits were found meeting these conditions. Showing future appointments within next 90 days with a meds authorizing provider and meeting all other requirements Passed - Last BP in normal range BP Readings from Last 1 Encounters: 09/14/20 130/80 celecoxib (CeleBREX) 100 MG Capsule 180 Cap 1 Sig: TAKE 1 CAPSULE BY MOUTH TWICE DAILY Analgesics: COX2 Inhibitors Passed - 09/29/2020 6:49 AM Passed - Valid encounter within last 6 months Past Office Visits Recent Outpatient Visits 2 weeks ago Essential hypertension [facility] Lucero Chirinos MD 6 months ago Physical exam, annual (Adult) [facility] Lucero Chirinos MD 1 year ago Essential hypertension [facility] Lucero Chirinos MD 1 year ago Physical exam, annual (Adult) [facility] Lucero Chirinos MD 2 years ago Essential [facility] Chirinos MD Upcoming Appointments Future Appointments In 3 months Lucero Chirinos MD [facility] Medical [facility] INSIDE SALES ACCOUNT REPRESENTATIVE - Recent and Past Visits Recent Visits Date Type Provider Dept 09/14/20 Office Visit Lcuero Chirinos MD [facility] 03/10/20 Office Visit Lucero Chirinos MD [facility] 07/22/19 Office Visit Lucero Chirinos MD [facility] Showing recent visits within past 460 days with a meds authorizing provider and meeting all other requirements Future Appointments No visits were found meeting these conditions. Showing future appointments within next 90 days with a meds authorizing provider and meeting all other requirements AL SERVICE DIRECTOR documented in this encounter Plan of Treatment Not on file documented as of this encounter Visit Diagnoses Diagnosis Essential hypertension Unspecified essential hypertension documented in this encounter Additional Health Concerns Assessment Noted Time PHQ-9 Depression Total Score: 0 09/14/19 21 4:00 PM SOCIAL SERVICE DIRECTOR documented as of this encounter Care Teams Director Correctional Agency Relationship Specialty Start Date End Date Lucero Chirinos MD PCP - General Family Medicine 05/26/15 12/09/22 documented as of this encounter
--- OUTSIDE RECORDS SUMMARY | 2025-03-10 07:59 | XMS_ITS | Encounter Summary ---
Author Organization [facility] Address [address] [place] [address] Phone Care Team Providers Care Environmental Technology Professor Name Role Phone Lucero Chirinos MD Primary Care Provider Reason for Visit * Reason Comments Medication Refill Encounter Details Date Type Department Care Team (Late st Contact Info) Description 01/03/2021 Refill [facility] - Primary Care - Amanda [address] [place] [address] Lucero Chirinos MD [address] [place] [address] Medication Refill Social History Tobacco [...] Miscellaneous Notes * Telephone Encounter - Kalli Morales RN - 01/04/2021 9:58 AM CDT Medication failed the protocol, provider to review and approve the medication order if appropriate. Requested Prescriptions Pending Prescriptions Disp Refills citalopram (CeleXA) 20 MG Tablet [Pharmacy Med Name: CITALOPRAM 20MG TABLETS] 90 Tablet 1 Sig: TAKE 1 TABLET BY MOUTH DAILY [facility] Not Delegated - Psychiatry: Antidepressants Failed - 01/03/2021 5:51 AM Failed - This refill cannot be delegated Passed - Valid encounter within last 12 months Past Office Visits Recent Outpatient Visits 3 months ago Essential hypertension [facility] Lucero Chirinos MD 10 months ago Physical exam, annual (Adult) [facility] Lucero Chirinos MD 1 year ago Essential hypertension [facility] Lucero Chirinos MD 2 years ago Physical exam, annual (Adult) [facility] Lucero Chirinos MD 2 years ago Essential hypertension [facility] Lucero Chirinos MD Upcoming Appointments Future Appointments In 1 week Lucero Chirinos MD [facility] - Recent and Past Visits Recent Visits Date Type Provider Dept 09/14/20 Office Visit Lucero Chirinos MD [facility] 03/10/20 Office Visit Lucero Chirinos MD [facility] Showing recent visits within past 460 days with a meds authorizing provider and meeting all other requirements Future Appointments Date Type Provider Dept 01/12/21 Appointment Lucero Chirinos MD [facility] Showing future appointments within next 90 days with a meds authorizing provider and meeting all other requirements documented in this encounter Plan of Treatment Not on file documented as of this encounter Visit Diagnoses Diagnosis Anxiety Anxiety state, unspecified documented in this encounter Additional Health Concerns Assessment Noted Time PHQ-9 Depression Total Score: 0 09/14/19 21 4:00 PM COMMUTATOR UNDERCUTTER documented as of this encounter Care Teams Environmental Technology Professor Relationship Specialty Start Date End Date Lucero Chirinos MD PCP - General Family Medicine 05/26/15 12/09/22 documented as of this encounter
--- OUTSIDE RECORDS SUMMARY | 2025-03-10 07:59 | XMS_ITS | Encounter Summary ---
Author Organization [facility] Address [address] [place] [address] Care Team Providers Care Livestock Counter Name Role Phone Lucero Chirinos MD Primary Care Provider [phone] Encounter Details Date Type Department Care Team (Late st Contact Info) Description 08/09/2007 Outpatient Historical [facility] Letha Jade MD [address] [address] Meli Thomas MD Department of Radiology [address] [place], [place] [id number] Hydronephrosis; Other Ureteric Obstruction Social History Tobacco Use Types Packs/Day Years Used Date Smoking Tobacco: Never Assessed Comments Unknown Sex and Gender Information Value Date Recorded Sex Assigned at Not on file Legal Sex Female 5:30 AM DIAL PRINTER Gender Identity Not on file Sexual Orientation Not on file documented as of this encounter Plan of Treatment Not on file documented as of this encounter Procedures Procedure Name Priority Date/Time Associated Diagnosis Comments PT AND APTT Routine 08/10/2007 11:41 AM DIAL PRINTER PLATELET COUNT Routine 08/10/2007 11:41 AM DIAL PRINTER BASIC METABOLIC PANEL Routine 08/10/2007 11:41 AM DIAL PRINTER documented in this encounter Results * (ABNORMAL) BASIC METABOLIC PANEL (08/10/2007 11:41 AM DIAL PRINTER) GLUCOSE 106(H) 65 - 99 mg/dL INTERFACE SYSTEM CREATININE 0.77 0.51 - 0.95 mg/dL INTERFACE SYSTEM CALCIUM 8.8 8.4 - 10.2 mg/dL INTERFACE SYSTEM BUN 15 6 - 20 mg/dL INTERFACE SYSTEM SODIUM 137 135 - 145 mmol/L INTERFACE SYSTEM POTASSIUM 4.0 3.5 - 4.9 mmol/L INTERFACE SYSTEM CHLORIDE 102 96 - 108 mmol/L INTERFACE SYSTEM CO2 27 22 - 30 mmol/L INTERFACE SYSTEM GFR, >60 >=60 mL/min/1. 7 sq meter INTERFACE SYSTEM GFR >60 >=60 mL/min/1. 7 sq meter INTERFACE SYSTEM Comment: Estimated GFR rate interpretative information for both Americans and non- Americans is available on the [facility] Intranet at: [email or web address] Select: Lab Policies and Procedures Select: Reference Ranges - GFR 08/10/2007 11:4 1 AM DIAL PRINTER Letha Jade MD CHEMISTRY ORDERABLES Edited Performing Organization Address [facility] de Phone Number INTERFACE SYSTEM Refer to clinic/hospital department * PLATELET COUNT (08/10/2007 11:41 AM DIAL PRINTER) Pathologist [facility] PLATELETS 339 140 - 350 K/uL INTERFACE SYSTEM MPV 10.7 9.3 - 12.4 fL INTERFACE SYSTEM 08/10/2007 11:4 1 AM DIAL PRINTER us Letha Jade MD HEMATOLOGY ORDERABLES Edited Performing Organization Address [facility] Co de Phone Number INTERFACE SYSTEM Refer to clinic/hospital department * (ABNORMAL) PT AND APTT (08/10/2007 11:41 AM DIAL PRINTER) PROTIME 13.0 12.7 - 15.1 Seconds INTERFACE SYSTEM INR 1.0 0.9 - 1.1 INTERFACE SYSTEM Comment: INR Therapeutic Range: Adult: 2.0 - 3.0 for pulmonary embolism or prophylaxis against venous thrombosis or systemic embolization. 2.0 - 3.0 for patients with tissue heart valves. 2.5 - 3.5 for patients with mechanical heart valves or post RI. Pediatric (12 years and under): 1.5 - 3.0 Although the target range in children is not well established , INR values of 1.5 - 3.0 are recommended for most patients. Higher values have been used in children with prosthetic cardiac valves and hereditary clotting disorders. (<3 days) therapeutic ranges have not been established. PTT 22.4(L) 24.4 - 36.4 Seconds INTERFACE SYSTEM Comment: PTT Therapeutic Range: Heparin Level PTT (seconds) <0.10 units/mL <53 0.10 - 0.30 units/mL 53 - 67 0.30 - 0.70 units/mL* 67 - 95* 0.70 - 1.00 units/mL 95 - 116 *corresponds to therapeutic range for unfractionated heparin Verified by repeat analysis. 08/10/2007 11:4 1 AM DIAL PRINTER Letha Jade MD HEMATOLOGY ORDERABLES Edited INTERFACE SYSTEM Refer to clinic/hospital department documented in this encounter Visit Diagnoses Diagnosis Hydronephrosis Other ureteric obstruction documented in this encounter Care Teams Livestock Counter Relationship Specialty Start Date End Date Lucero Chirinos MD PCP - General Family Practice 01/22/15 documented as of this encounter
--- OUTSIDE RECORDS SUMMARY | 2025-03-10 07:59 | XMS_ITS | Encounter Summary ---
Author Organization [facility] Address [address] [place] [address] Phone Care Team Providers Care Power Plant Engineer Name Role Phone Unavailable Primary Care Provider Unavailabl e Reason for Visit * Reason Comments Medication Refill Encounter Details Date Type Department Care Team (Late st Contact Info) Description 02/03/2023 Refill [facility] - Family Medicine [facility] [address] [place] [address] Inna Millan MD [address] [place] [address] Medication Refill Social History Tobacco Use Types [...] or the highest degree you have received? 12th grade 05/30/2022 Sexually Active Control Partners Comments Yes Comments No Sex and Gender Information Value Date Recorded Sex Assigned at Not on file Legal Sex Female 12:01 AM CDT Gender Identity Not on file Sexual Orientation Not on file documented as of this encounter Plan of Treatment Not on file documented as of this encounter Visit Diagnoses Diagnosis Essential hypertension Unspecified essential hypertension Anxiety Anxiety state, unspecified documented in this encounter Additional Health Concerns Assessment Noted Time PHQ-9 Depression Total Score: 0 09/14/19 21 4:00 PM SENIOR BI DEVELOPER documented as of this encounter
--- OUTSIDE RECORDS SUMMARY | 2025-03-10 07:59 | XMS_ITS | Referral Summary ---
Author Organization [facility] [address] Address [address] [place] [address] Care Team Providers Care Television Technician Name Role Phone CarlosAmina motleyMadiha PA Unavailable [phone] Siva Boswell MD Unavailable Brenda Carmona NP Primary Care Provider Encounters Date Type Department Care Team Description 02/14/2025 Telephone [facility] Primary Care at [address] [address] Brenda Carmona NP Additional Services Or Orders from Last 3 Months Allergies Active Allergy Reactions Criticality Noted Date Comments Adhesive Blisters High 12/15/2021 Adhesive Tape-Silicones Other (See comments) High Iodinated Contrast Media Hives Medium 06/13/2022 Medications ketoconazole (NIZORAL) 2 % cream APPLY TO THE AFFECTED AREA TWICE DAILY NEEDED 12/02/19 22 Active cholecalciferol (VITAMIN D-3) 25 mcg (1,000 unit) tablet Take 1 tablet (1,000 Units total) by mouth daily Active meclizine (ANTIVERT) 12.5 mg tablet Take 1 tablet (12.5 mg total) by mouth 3 (three) times a day as needed for dizziness 90 tablet 4 05/20/20 24 Active amLODIPine (NORVASC) 5 mg tabletIndications:Essen tial hypertension Take 1 tablet (5 mg total) by mouth daily 90 tablet 3 10/09/19 25 Active lisinopriL (PRINIVIL,ZESTRIL) 40 mg tabletIndications:Essen tial hypertension Take 1 tablet (40 mg total) by mouth daily 90 tablet 3 10/09/19 25 Active citalopram (CeleXA) 20 mg tabletIndications:Gener alized Anxiety Disorder Take 1 tablet (20 mg total) by mouth daily 90 tablet 3 10/09/19 25 Active levothyroxine (SYNTHROID) 112 mcg tabletIndications:Acqui red hypothyroidism Take 1 tablet (112 mcg total) by mouth robot technician before breakfast 90 tablet 3 10/09/19 25 Active simvastatin (ZOCOR) 10 mg tabletIndications:Pure hypercholesterolemia Take 1 tablet (10 mg total) by mouth nightly 90 tablet 3 10/09/19 25 Active Active Problems Problem Noted Date Diagnosed Date Concern about memory 10/09/2024 Class 3 severe obesity due t o excess calories with serious comorbidity and body mass index (BMI) of 40.0 to 44.9 in adult 09/25/2023 Assessment & Plan (10/09/2024 11:09 AM LOGISTICS OFFICER): BMI Follow-up includes: nutrition counseling. Assessment & Plan (12/14/2023 6:07 PM CDT): Chronic. Suboptimally controlled. Improving. Weight loss counseling performed. Showing benefit with diet, exercise, so will hold off on weight loss rx for now as not covered by her insurance S/P total knee arthroplasty, right 07/07/2022 Ventral hernia without obstruction or gangrene 0 04/26/2022 Assessment & Plan (04/26/2022 2:46 PM CDT): We have discussed minimally invasive fixing the large ventral hernia. She recently had a left knee scope completed and is preparing for a right 1. As the hernia is asymptomatic I think it would be reasonable to wait until after she recovers from her orthopedic procedures. We have gone over signs and symptoms of incarceration and strangulation. When she has a date in mind that will work she will call us back and let us know. S/P total knee arthroplasty, left 01/30/2022 Hypothyroidism 12/31/2020 Assessment & Plan (09/06/2024 10:24 AM LOGISTICS OFFICER): Clinically euthyroid. Refill levothyroxine 112 mcg daily. Will need labs in the future. Assessment & Plan (03/14/2024 6:40 PM CDT): Chronic. Clinically euthyroid. Check TSH and adjust levothyroxine as needed. Patient denies any missed doses Assessment & Plan (12/14/2023 6:06 PM CDT): Chronic. Euthyroid. Continue rx OAB (overactive bladder) 07/22/2019 Prediabetes 07/22/2019 Assessment & Plan (10/09/2024 11:08 AM LOGISTICS OFFICER): Last A1c 6% in 2022. Will recheck with labs. Assessment & Plan (03/14/2024 6:40 PM CDT): Chronic. Control uncertain. Encouraged healthy diet, exercise and weight loss. Monitor H/O bilateral mastectomy 03/23/2018 Hyperlipidemia 09/18/2017 Assessment & Plan (09/06/2024 10:24 AM LOGISTICS OFFICER): Chronic, continue simvastatin 10 mg daily. Assessment & Plan (03/14/2024 6:41 PM CDT): Chronic. Tolerating simvastatin. Check cholesterol level and adjust as needed. Minimal LDL goal less than 100 with optimal less than 70. Obesity due to excess calories 01/21/2016 Assessment & Plan (03/14/2024 6:41 PM CDT): Chronic. Suboptimally controlled but has improved some over the last year. Encouraged her to continue working on healthy diet, exercise and weight loss. Her insurance previously did not cover prescription weight loss aids when checked Vitamin B12 deficiency 12/17/2015 Essential hypertension 12/01/2011 Assessment & Plan (09/06/2024 10:23 AM LOGISTICS OFFICER): Chronic. HTN controlled. Refill amlodipine and lisinopril. Assessment & Plan (03/14/2024 6:40 PM CDT): Chronic. HTN controlled. Cont prescription Rx as indicated in HPI under HTN diagnosis. Low sodium diet (DASH or Mediterranean), exercise, wt loss (if over weight) discussed Assessment & Plan (12/14/2023 6:06 PM CDT): Chronic. HTN controlled. Cont prescription Rx as indicated in HPI under HTN diagnosis (ACEI, CCB). Low sodium diet (DASH or Mediterranean), exercise, wt loss (if over weight) discussed GUILLERMO (generalized anxiety disorder) 12/01/2011 Assessment & Plan (09/06/2024 10:23 AM LOGISTICS OFFICER): Anxiety is chronic and well controlled. Refill citalopram 20 mg Assessment & Plan (03/14/2024 6:40 PM CDT): Chronic. Controlled. Continue citalopram as patient is not yet willing to consider weaning the dose. Brief supportive counseling provided HX: breast cancer 05/21/2009 Overview (04/20/2021): Overview: Dx in 2001. Left Breast T1 N0 Stage 1, ER (+) IN (+) HER2 (+), Tamoxifen Dx in 2001. Left Breast T1 N0 Stage 1, ER (+) IN (+) HER2 (+), Tamoxifen Resolved Problems Problem Noted Date Diagnosed Date Resolved Date Primary osteoarthritis of both knees 06/21/2022 02/07/2023 Arthritis of knee 06/21/2022 02/07/2023 Ventricular premature complexes 03/21/2017 02/07/2023 Palpitations 02/21/2017 03/14/2024 IFG (impaired fasting glucose) 01/20/2017 02/07/2023 Obesity (BMI 30-39.9) 11/18/20162022 Osteoarthritis of both knees 12/17/2015 02/07/2023 Immunizations Immunization Administration Dates Next Due Influenza, Quadrivalent, Spl it, Preservative Free, Intramuscular 08/16/2023,05/31/2022,08/25/2021,06/21 Influenza, Trivalent, Cell Culture-based MDCK, Preservative Free, Antibiotic Free, Intramuscular 08/29/2024 Influenza, Trivalent, IM (MDV) 05/30/2017,2014,05/28/2013 Influenza, Trivalent, Preser vative Free, Intramuscular 06/11/2018 Influenza, Unspecified 05/20/2024(Deferr ed: Patient Refused),08/28/2023(Deferred: Patient Refused),05/28/2022,05/28/2015, 013 Tdap 01/04/2023 ZOSTER Recombinant 08/25/2021 Social History Tobacco Use Types Packs/Day Years Used Date Smoking Tobacco: Never Smokeless Tobacco: Never AUDIT-C Answer Date Recorded Q1: How often do you have a drink containing alc ohol? Monthly or less 03/14/2024 Q2: How many drinks containi ng alcohol do you have on a typical day when you are drinking? 1 or 2 03/14/2024 Q3: How often do you have si x or more drinks on one occasion? Less than monthly 03/14/2024 PHQ-2 Answer Date Recorded PHQ-2 Total Score (If total score is 3 or more points, staff should administer the PHQ-9) 0 05/20/2024 Comments No Sex and Gender Information Value Date Recorded Sex Assigned at Not on file Legal Sex Female 12:27 AM LOGISTICS OFFICER Gender Identity Not on file Sexual Orientation Not on file Last Filed Vital Signs Vital Sign Reading Time Taken Comments Blood Pressure 124/74 05/20/2024 2:41 PM CDT Pulse 86 05/20/2024 2:41 PM CDT Temperature 36.8 C (98.2 F) 05/20/2024 2:37 PM CDT Respiratory Rate 18 04/22/2024 2:22 PM CDT Oxygen Saturation 98% 05/20/2024 2:37 PM CDT Inhaled Oxygen Concentration - - Weight 115.7 kg (255 lb) 10/09/2024 10:27 AM LOGISTICS OFFICER Height 165.1 cm (5' 5) 05/20/2024 2:37 PM CDT Body Mass Index 42.43 05/20/2024 2:37 PM CDT Plan of Treatment Not on file Medical Devices Implanted Type Area Boat Operator Device Identifier Shelf Expiration Date Model / Serial / Lot [employer] [id number] Attune Cruciate Retain Cementless Knee Left 4 Component Femoral - [id number] Implanted:Qty: 1 on 12/21/2021 by Siva Boswell MD at [facility] Left: Knee [employer] 08/27/2029 [id number] / / [id number] [employer] [id number] Attune 6mm Cruciate Retaining Rotate Platform Knee 4 Insert - [id number] Implanted:Qty: 1 on 12/21/2021 by Siva Boswell MD at [facility] Left: Knee [employer] 08/27/2026 [id number] / / [id number] [employer] [id number] Attune Cementless Rotate Platform Knee 4 Baseplate Tibial - [id number] Implanted:Qty: 1 on 12/21/2021 by Siva Boswell MD at [facility] Left: Knee [employer] 05/27/2031 [id number] / / [id number] [employer] Attune Fb Tib Base Sz 4 Por [id number] - [id number] Implanted:Qty: 1 on 06/21/2022 by Siva Boswell MD at [facility] Right: Knee [employer] 10/26/2031 [id number] / / [id number] [employer] Attune Cruciate Retain Cementless Knee Right 4 Component Femoral [id number] - [id number] Implanted:Qty: 1 on 06/21/2022 by Siva Boswell MD at [facility] Right: Knee [employer] 07/27/2029 [id number] / / [id number] [employer] Attune 6mm Cruciate Retaining Fix Bearing Knee 4 Insert Tibial [id number] - [id number] Implanted:Qty: 1 on 06/21/2022 by Siva Boswell MD at [facility] Right: Knee [employer] 02/24/2027 [id number] / / [id number] Procedures Procedure Name Priority Date/Time Associated Diagnosis Comments HEPATITIS C ANTIBODY Routine 03/13/2023 8:48 AM CDT Encounter for hepatitis C screening test for low risk patient Annual physical exam COLONOSCOPY Routine 02/16/2023 4:30 PM CDT from Last 3 Months or Most Recently Relevant to Health Maintenance Results * Hepatitis C antibody (03/13/2023 8:48 AM CDT) Hep C Ab Nonreactive Nonreactive LEANDRO NICHOLS Comment: Interpretive Data Nonreactive: Antibodies to HCV not detected. Does NOT exclude the possibility of recent exposure to HCV. Equivocal: Equivocal for HCV antibodies. Supplemental molecular testing will be automatically performed to determine infection status in accordance with current CDC screening recommendations. Reactive: Positive for HCV antibodies. This may represent current or past HCV infection. Supplemental molecular testing will be automatically performed to determine current infection status in accordance with current CDC screening recommendations. Interpretive data was last revised on 2019. Blood 03/13/2023 8:48 AM CDT 03/13/2023 3:18 PM CDT Katlin Campos MD LAB MICROBIOLOGY - GEN ERAL ORDERABLES Final Result LEANDRO [address] Department [place] [address] * COLONOSCOPY (02/16/2023 4:30 PM CDT) Hugo Provider HEALTH MAINTENANCE Final Result from Last 3 Months or Most Recently Relevant to Health Maintenance Insurance [employer] [facility] ACCESS Advance Directives For more information, please contact: [phone] * Full Code (Latest Code Status on File) Date Activated Date Inactivated Comments 06/21/2022 4:34 PM 06/22/2022 8:04 PM * Full Code Date Activated Date Inactivated Comments 12/21/2021 1:16 PM 12/23/2021 7:53 PM Care Teams Television Technician Relationship Specialty Start Date End Date Brenda Carmona NP [address] [facility] [address] [place] [address] PCP - General Family Medicine 10/09/24 Amina Gonzalez PA Physician C.O.D. Clerk Orthopedic Surgery 12/22/21 Siva Boswell MD [address] [facility] [address] PRIMO Ma [facility] [address] [place] [address] Surgeon Orthopedic Surgery 04/28/22
--- OUTSIDE RECORDS SUMMARY | 2025-03-10 07:59 | XMS_ITS | Encounter Summary ---
Author Organization [facility] Address [address] [place] [address] Care Team Providers Care Stick Inserter Name Role Phone Lucero Chirinos MD Primary Care Provider [phone] Reason for Visit * Reason Comments Medication Refill Encounter Details Date Type Department Care Team (Late st Contact Info) Description 12/25/2015 Refill [facility] [address] [address] Liya Ring MD NO ADDRESS ON FILE Social History Tobacco Use Types Packs/Day Years Used Date Smoking Tobacco: Never Alcohol Use Standard Drinks/Week Comments Yes 0 (1 standard drink = 0.6 oz pur e alcohol) Rarely Comments No Sex and Gender Information Value Date Recorded Sex Assigned at Not on file Legal Sex Female 5:30 AM MANUFACTURING LABORER Gender Identity Not on file Sexual Orientation Not on file documented as of this encounter Plan of Treatment Not on file documented as of this encounter Visit Diagnoses Not on filedocumented in this encounter Care Teams Stick Inserter Relationship Specialty Start Date End Date Lucero Chirinos MD PCP - General Family Practice 01/22/15 documented as of this encounter
--- OUTSIDE RECORDS SUMMARY | 2025-03-10 07:59 | XMS_ITS | Encounter Summary ---
Author Organization [employer] Address [address] [place] [address] Care Team Providers Care Laborer Landscape Name Role Phone Lucero Chirinos MD Primary Care Provider [phone] Encounter Details Date Type Department Care Team (Late st Contact Info) Description 10/04/2007 Outpatient Historical [facility] Bismark Jade MD [address] [place] [address] Unspecified Urethral Stricture Social History Tobacco Use Types Packs/Day Years Used Date Smoking Tobacco: Never Assessed Comments Unknown Sex and Gender Information Value Date Recorded Sex Assigned at Not on file Legal Sex Female 5:30 AM ART TEACHER Gender Identity Not on file Sexual Orientation Not on file documented as of this encounter Plan of Treatment Not on file documented as of this encounter Procedures Procedure Name Priority Date/Time Associated Diagnosis Comments XR RETROGRADE PYELOGRM W WO KUB Routine 10/15/2007 7:20 AM ART TEACHER HEMOGLOBIN AND HEMATOCRIT Routine 10/05/2007 8:51 AM ART TEACHER documented in this encounter Results * XR RETROGRADE PYELOGRM W WO KUB (10/15/2007 7:20 AM ART TEACHER) Anatomical Region Laterality Modality Abdomen Other 10/15/2007 7:20 AM ART TEACHER Narrative 10/15/2007 5:36 PM ART TEACHER [facility] [address] [place], [place] [address] Admit Date: 10/15/2007 ARACELI LIM Sex: F Admit Prov: BISMARK JADE Date: 1960 Primary Care Prov: PCP, UNKNOWN CMRN: [id number] Room: [facility] SSN: [id number] IMAGING SERVICES Ordering Prov: N/A Accession Number: [id number] Interpretation EXAMINATION: C-ARM FLUOROSCOPY 10/15/2007 Clinical History: Pain. Findings: Fluoroscopy was provided to assist retrograde pyelogram. Multiple spot images were obtained which demonstrate opacification of the right collecting system. Impression: Fluoroscopy provided to assist procedure. . Dictated by: Wilberto WHITMORE 10/15/2007 17:19 Electronically signed by: Wilberto WHITMORE 10/15/2007 17:36 Transcribed: 10/15/2007 17:31 SJ Procedure Note Provider, Historical - 10/15/2007 [facility] [address] [place], [place] [address] Admit Date: 10/15/2007 ARACELI LIM Sex: F Admit Prov: BISMARK JADE Date: 1960 Primary Care Prov: PCP, UNKNOWN CMRN: [id number] Room: [facility] SSN: [id number] IMAGING SERVICES Ordering Prov: N/A Interpretation EXAMINATION: C-ARM FLUOROSCOPY 10/15/2007 Clinical History: Pain. Findings: Fluoroscopy was provided to assist retrograde pyelogram. Multiple spot images were obtained which demonstrate opacification ofthe right collecting system. Impression: Fluoroscopy provided to assist procedure. . Dictated by: Wilberto WHITMORE 10/15/2007 17:19 Electronically signed by: Wilberto WHITMORE 10/15/2007 17:36 Transcribed: 10/15/2007 17:31 SJ Bismark Jade MD DIAGNOSTIC IMAGING ORDERABLE S Final Result * HEMOGLOBIN AND HEMATOCRIT (10/05/2007 8:51 AM ART TEACHER) HEMOGLOBIN 12.6 11.8 - 14.8 g/dL INTERFACE SYSTEM HEMATOCRIT 39.4 35.5 - 44.0 % INTERFACE SYSTEM 10/05/2007 8:51 AM ART TEACHER Bismark Jade MD HEMATOLOGY ORDERABLES Final Result INTERFACE SYSTEM Refer to clinic/hospital department documented in this encounter Visit Diagnoses Diagnosis Urethral stricture unspecified Urethral stricture, unspecified documented in this encounter Care Teams Laborer Landscape Relationship Specialty Start Date End Date Lucero Chirinos MD PCP - General Family Practice 01/22/15 documented as of this encounter
--- OUTSIDE RECORDS SUMMARY | 2025-03-10 07:59 | XMS_ITS | Encounter Summary ---
Author Organization [employer] Address [address] [place] [address] Care Team Providers Care Php Programmer Name Role Phone Lucero Chirinos MD Primary Care Provider [phone] Encounter Details Date Type Department Care Team (Late st Contact Info) Description 10/15/2007 Outpatient Historical [facility] Letha Jade MD [address] [place] [address] Other Ureteric Obstruction; Status of Other Artificial Opening of Urinary Tract (CMS/HCC); Other Specified Disorder of Bladder Social History Tobacco Use Types Packs/Day Years Used Date Smoking Tobacco: Never Assessed Comments Unknown Sex and Gender Information Value Date Recorded Sex Assigned at Not on file Legal Sex Female 5:30 AM MANAGER AUTO Gender Identity Not on file Sexual Orientation Not on file documented as of this encounter Plan of Treatment Not on file documented as of this encounter Procedures Procedure Name Priority Date/Time Associated Diagnosis Comments CBC WITH DIFFERENTIAL Routine 11/06/2007 5:43 AM CDT BASIC METABOLIC PANEL Routine 11/06/2007 5:43 AM CDT BASIC METABOLIC PANEL Routine 11/05/2007 6:10 AM CDT CBC WITH DIFFERENTIAL Routine 11/04/2007 6:45 AM CDT BASIC METABOLIC PANEL Routine 11/04/2007 6:45 AM CDT CBC WITH DIFFERENTIAL Routine 11/03/2007 6:10 AM MANAGER AUTO BASIC METABOLIC PANEL Routine 11/03/2007 6:10 AM MANAGER AUTO URINE CULTURE Routine 10/31/2007 9:30 AM MANAGER AUTO documented in this encounter Results * (ABNORMAL) CBC WITH DIFFERENTIAL (11/06/2007 5:43 AM CDT) MCHC 31.8 31.5 - 35.5 % [facility] MCV 85.1 82.0 - 99.0 fL [facility] PLATELETS 199 140 - 350 K/uL [facility] HEMOGLOBIN 11.1(L) 11.8 - 14.8 g/dL [facility] RDW 14.4 11.5 - 14.5 % [facility] WBC 7.7 4.0 - 9.8 K/uL [facility] MCH 27.1(L) 27.2 - 32.6 pg [facility] MPV 11.0 9.3 - 12.4 fL [facility] HEMATOCRIT 34.9(L) 35.5 - 44.0 % [facility] RDW-STDEV 44.8 37.1 - 48.7 fL [facility] RBC 4.10 3.90 - 4.90 M/uL [facility] NEUTROPHILS 62 45 - 70 % [facility] NEUTROPHIL ABSOLUTE 4.73 1.90 - 7.00 K/uL [facility] EOSINOPHILS 4 0 - 7 % [facility] EOSINOPHIL ABSOLUTE 0.31 0.00 - 0.70 K/uL [facility] LYMPHOCYTES 21 16 - 45 % [facility] LYMPHOCYTE ABSOLUTE 1.61 0.70 - 4.50 K/uL [facility] BASOPHILS 0 0 - 2 % [facility] BASOPHILS ABSOLUTE 0.02 0.00 - 0.20 K/uL [facility] MONOCYTES 13 3 - 13 % [facility] MONOCYTE ABSOLUTE 1.00 0.10 - 1.30 K/uL [facility] Blood specimen (specimen) 11/06/2007 5:43 AM CDT 11/06/2007 6:57 AM CDT us Letha Jade MD HEMATOLOGY ORDERABLES Edited INTERFACE SYSTEM Refer to clinic/hospital department [facility] [address] [place] [address] * (ABNORMAL) BASIC METABOLIC PANEL (11/06/2007 5:43 AM CDT) POTASSIUM 3.6 3.5 - 4.9 mmol/L [facility] CO2 27 22 - 30 mmol/L [facility] SODIUM 136 135 - 145 mmol/L [facility] BUN 7 6 - 20 mg/dL [facility] CALCIUM 8.6 8.4 - 10.2 mg/dL [facility] GLUCOSE 119(H) 65 - 99 mg/dL [facility] CHLORIDE 102 96 - 108 mmol/L [facility] CREATININE 0.69 0.51 - 0.95 mg/dL [facility] GFR, >60 >=60 mL/min/1. 7 sq meter [facility] GFR >60 >=60 mL/min/1. 7 sq meter [facility] Comment: Estimated GFR rate interpretative information for both Americans and non- Americans is available on the [facility] Intranet at: [email or web address] Select: Lab Policies and Procedures Select: Reference Ranges - GFR Blood specimen (specimen) 11/06/2007 5:43 AM CDT 11/06/2007 6:57 AM CDT us Letha Jade MD CHEMISTRY ORDERABLES Edited [facility] [address] [place] [address] * (ABNORMAL) BASIC METABOLIC PANEL (11/05/2007 6:10 AM CDT) CHLORIDE 100 96 - 108 mmol/L [facility] GLUCOSE 117(H) 65 - 99 mg/dL [facility] SODIUM 136 135 - 145 mmol/L [facility] CALCIUM 8.2(L) 8.4 - 10.2 mg/dL [facility] CO2 27 22 - 30 mmol/L [facility] CREATININE 0.77 0.51 - 0.95 mg/dL [facility] POTASSIUM 3.9 3.5 - 4.9 mmol/L [facility] BUN 10 6 - 20 mg/dL [facility] GFR, >60 >=60 mL/min/1. 7 sq meter [facility] GFR >60 >=60 mL/min/1. 7 sq meter [facility] Comment: ansiEstimated GFR rate interpretative information for both Americans and non- Americans is available on the [facility] Intranet at: [email or web address] Select: Lab Policies and Procedures Select: Reference Ranges - GFR Blood specimen (specimen) 11/05/2007 6:10 AM CDT 11/05/2007 6:33 AM CDT us Letha Jade MD CHEMISTRY ORDERABLES Edited Performing Organization Address City/[facility]/ZIP Co de Phone Number [facility] [address] [place] [address] * (ABNORMAL) BASIC METABOLIC PANEL (11/04/2007 6:45 AM CDT) CALCIUM 8.3(L) 8.4 - 10.2 mg/dL [facility] CO2 30 22 - 30 mmol/L [facility] CREATININE 0.77 0.51 - 0.95 mg/dL [facility] POTASSIUM 3.6 3.5 - 4.9 mmol/L [facility] BUN 14 6 - 20 mg/dL [facility] CHLORIDE 103 96 - 108 mmol/L [facility] GLUCOSE 93 65 - 99 mg/dL [facility] SODIUM 140 135 - 145 mmol/L [facility] GFR, >60 >=60 mL/min/1. 7 sq meter [facility] GFR >60 >=60 mL/min/1. 7 sq meter [facility] Comment: Estimated GFR rate interpretative information for both Americans and non- Americans is available on the [facility] Intranet at: [email or web address] Select: Lab Policies and Procedures Select: Reference Ranges - GFR Blood specimen (specimen) 11/04/2007 6:45 AM CDT 11/04/2007 7:26 AM CDT Letha Jade MD CHEMISTRY ORDERABLES Edited [facility] [address] [place] [address] * (ABNORMAL) CBC WITH DIFFERENTIAL (11/04/2007 6:45 AM CDT) HEMATOCRIT 33.9(L) 35.5 - 44.0 % [facility] RDW-STDEV 45.6 37.1 - 48.7 fL [facility] RBC 3.95 3.90 - 4.90 M/uL [facility] MCHC 30.7(L) 31.5 - 35.5 % [facility] MCV 85.8 82.0 - 99.0 fL [facility] PLATELETS 203 140 - 350 K/uL [facility] HEMOGLOBIN 10.4(L) 11.8 - 14.8 g/dL [facility] RDW 14.6(H) 11.5 - 14.5 % [facility] WBC 9.8 4.0 - 9.8 K/uL [facility] MCH 26.3(L) 27.2 - 32.6 pg [facility] MPV 11.3 9.3 - 12.4 fL [facility] MONOCYTES 8 3 - 13 % [facility] MONOCYTE ABSOLUTE 0.81 0.10 - 1.30 K/uL [facility] NEUTROPHILS 71(H) 45 - 70 % [facility] NEUTROPHIL ABSOLUTE 6.93 1.90 - 7.00 K/uL [facility] EOSINOPHILS 0 0 - 7 % [facility] EOSINOPHIL ABSOLUTE 0.02 0.00 - 0.70 K/uL [facility] LYMPHOCYTES 21 16 - 45 % [facility] LYMPHOCYTE ABSOLUTE 2.02 0.70 - 4.50 K/uL [facility] BASOPHILS 0 0 - 2 % [facility] BASOPHILS ABSOLUTE 0.03 0.00 - 0.20 K/uL [facility] Blood specimen (specimen) 11/04/2007 6:45 AM CDT 11/04/2007 7:26 AM CDT us Letha Jade MD HEMATOLOGY ORDERABLES Edited INTERFACE SYSTEM Refer to clinic/hospital department [facility] [address] [place] [address] * (ABNORMAL) BASIC METABOLIC PANEL (11/03/2007 6:10 AM MANAGER AUTO) BUN 13 6 - 20 mg/dL [facility] CHLORIDE 107 96 - 108 mmol/L [facility] GLUCOSE 148(H) 65 - 99 mg/dL [facility] SODIUM 140 135 - 145 mmol/L [facility] CALCIUM 8.1(L) 8.4 - 10.2 mg/dL [facility] CO2 25 22 - 30 mmol/L [facility] CREATININE 0.76 0.51 - 0.95 mg/dL [facility] POTASSIUM 4.3 3.5 - 4.9 mmol/L [facility] GFR, >60 >=60 mL/min/1. 7 sq meter [facility] GFR >60 >=60 mL/min/1. 7 sq meter [facility] Comment: Estimated GFR rate interpretative information for both Americans and non- Americans is available on the [facility] Intranet at: [email or web address] Select: Lab Policies and Procedures Select: Reference Ranges - GFR Blood specimen (specimen) 11/03/2007 6:10 AM MANAGER AUTO 11/03/2007 6:24 AM MANAGER AUTO us Letha Jade MD CHEMISTRY ORDERABLES Edited [facility] [address] [place] [address] * (ABNORMAL) CBC WITH DIFFERENTIAL (11/03/2007 6:10 AM MANAGER AUTO) MCV 83.9 82.0 - 99.0 fL [facility] PLATELETS 214 140 - 350 K/uL [facility] HEMOGLOBIN 11.3(L) 11.8 - 14.8 g/dL [facility] RDW 14.6(H) 11.5 - 14.5 % [facility] WBC 14.2(H) 4.0 - 9.8 K/uL [facility] MCH 26.4(L) 27.2 - 32.6 pg [facility] MPV 10.9 9.3 - 12.4 fL [facility] HEMATOCRIT 35.9 35.5 - 44.0 % [facility] RDW-STDEV 44.2 37.1 - 48.7 fL [facility] RBC 4.28 3.90 - 4.90 M/uL [facility] MCHC 31.5 31.5 - 35.5 % [facility] EOSINOPHILS 0 0 - 7 % [facility] EOSINOPHIL ABSOLUTE 0.00 0.00 - 0.70 K/uL [facility] LYMPHOCYTES 8(L) 16 - 45 % [facility] LYMPHOCYTE ABSOLUTE 1.06 0.70 - 4.50 K/uL [facility] BASOPHILS 0 0 - 2 % [facility] BASOPHILS ABSOLUTE 0.02 0.00 - 0.20 K/uL [facility] MONOCYTES 5 3 - 13 % [facility] MONOCYTE ABSOLUTE 0.77 0.10 - 1.30 K/uL [facility] NEUTROPHILS 87(H) 45 - 70 % [facility] NEUTROPHIL ABSOLUTE 12.32(H) 1.90 - 7.00 K/uL [facility] Blood specimen (specimen) 11/03/2007 6:10 AM MANAGER AUTO 11/03/2007 6:24 AM MANAGER AUTO us Letha Jade MD HEMATOLOGY ORDERABLES Edited Performing Organization Address City/[facility]/ZIP Co de Phone Number INTERFACE SYSTEM Refer to clinic/hospital department [facility] [address] [place] [address] * URINE CULTURE (10/31/2007 9:30 AM MANAGER AUTO) PRELIMINARY REPORT Pending INTERFACE SYSTEM FINAL REPORT No growth 24 hours INTERFACE SYSTEM 10/31/2007 9:30 AM MANAGER AUTO 10/31/2007 11:21 AM MANAGER AUTO us Letha Jade MD MICROBIOLOGY - GENERAL ORDER ROSARIO Final Result Performing Organization Address [facility] de Phone Number INTERFACE SYSTEM Refer to clinic/hospital department documented in this encounter Visit Diagnoses Diagnosis Other ureteric obstruction Status of other artificial opening of urinary tract (CMS/HCC) Status of other artificial opening of urinary tract Other specified disorder of bladder documented in this encounter Care Teams Php Programmer Relationship Specialty Start Date End Date Lucero Chirinos MD PCP - General Family Practice 01/22/15 documented as of this encounter
--- OUTSIDE RECORDS SUMMARY | 2025-03-10 07:59 | XMS_ITS | Encounter Summary ---
Author Organization [employer] Address [address] [place] [address] Care Team Providers Care Speech Scientist Name Role Phone Lucero Chirinos MD Primary Care Provider [phone] Encounter Details Date Type Department Care Team (Late st Contact Info) Description 08/01/2007 Outpatient Historical [facility] Letha Jade MD [address] [address] Hydronephrosis Social History Tobacco Use Types Packs/Day Years Used Date Smoking Tobacco: Never Assessed Comments Unknown Sex and Gender Information Value Date Recorded Sex Assigned at Not on file Legal Sex Female 5:30 AM RAILROAD CAR 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
--- OUTSIDE RECORDS SUMMARY | 2025-03-10 07:59 | XMS_ITS | Encounter Summary ---
Author Organization [facility] Address [address] [place] [address] Phone Care Team Providers Care Application Architect Manager Name Role Phone Unavailable Primary Care Provider Unavailabl e Reason for Visit * Reason Comments Medication Refill Encounter Details Date Type Department Care Team (Late st Contact Info) Description 01/19/2023 Refill [facility] - Family Medicine [facility] [address] [place] [address] Lucero Chirinos MD [address] [place] [address] Medication Refill Social History Tobacco Use Types [...] Total Score: 0 09/14/19 21 4:00 PM TASSEL MAKING MACHINE OPERATOR documented as of this encounter
--- OUTSIDE RECORDS SUMMARY | 2025-03-10 07:59 | XMS_ITS | Clinical Summary ---
Author Organization [employer] [facility] [place] Address [address] [facility] [place] [address] Phone Care Team Providers Care Irrigation Foreman Name Role Phone Luceor Chirinos MD Primary Care Provider [phone] Allergies No known active allergies Medications ibuprofen (ADVIL) 200 mg Oral Tab Take 200 mg by mouth every 6 hours as needed for Pain. Active lisinopril (PRINIVIL) 10 mg tablet TAKE 1 TABLET BY MOUTH EVERY DAY 90 Tablet 1 12/07/2015 Active LEVOTHYROXINE 137 mcg tablet TAKE 1 TABLET BY MOUTH EVERY MORNING 90 Tablet 0 12/28/2015 Active celecoxib (CELEBREX) 100 mg capsule Take 100 mg by mouth 2 times daily. Active citalopram (CeleXA) 20 mg tablet TAKE 1 TABLET BY MOUTH EVERY NIGHT AT BEDTIME 90 Tablet 07/19/2016 Active Active Problems Problem Noted Date Diagnosed Date Morbid obesity with BMI of 45.0-49.9, adult 12/27 Unspecified essential hypertension 12/01/2011 Anxiety 12/01/2011 HX: breast cancer 05/21/2009 Overview (05/21/2009): Dx in 2001. Left Breast T1 N0 Stage 1, ER (+) UT (+) HER2 (+), Tamoxifen Family History Medical History Relation Name Comments Breast Cancer Mother Dx in her 60s Other Mother multiple myelom a Relation Name Status Comments Mother Social History Tobacco Use Types Packs/Day Years Used Date Smoking Tobacco: Never Alcohol Use Standard Drinks/Week Comments Yes 0 (1 standard drink = 0.6 oz pur e alcohol) Rarely Comments No Sex and Gender Information Value Date Recorded Sex Assigned at Not on file Legal Sex Female 5:30 AM EDITOR DICTIONARY Gender Identity Not on file Sexual Orientation Not on file Last Filed Vital Signs Vital Sign Reading Time Taken Comments Blood Pressure 127/81 01/21/2016 1:03 PM CDT Pulse 82 01/21/2016 1:03 PM CDT Temperature 36.7 C (98 F) 01/21/2016 1:03 PM CDT Respiratory Rate 15 01/21/2016 1:03 PM CDT Oxygen Saturation - - Inhaled Oxygen Concentration - - Weight 128.5 kg (283 lb 4 oz) 01/21/2016 1:03 PM CDT Height 167.6 cm (5' 6) 01/21/2016 1:03 PM CDT Body Mass Index 45.72 01/21/2016 1:03 PM CDT Plan of Treatment Health Maintenance Due Date Last Done Comments DTAP/TDAP/TD VACCINES (1 - Tdap) 1979 HPV/Cotest (21-29) 1981 HPV/Cotest (30-65) 1990 BREAST CANCER SCREENING 2000 CERVICAL CANCER SCREENING 09/28/2001 PAP SMEAR 09/28/2001 09/28/1998 COLORECTAL SCREENING 2005 Colorectal Cancer Screening 2005 FIT-DNA Q 3 years 2005 FIT/FOBT Q 1 year 2005 Flex Sig/CT Colonography Q 5 years 2005 ZOSTER VACCINE (1 of 2) 2010 Pre-Diabetes and Diabetes Screening 01/21/201701/21 RSV VACCINE (60+ or ) (1 - Risk 60-74 years 1-dose series) 2020 INFLUENZA VACCINE (#1) 2025 Procedures Procedure Name Priority Date/Time Associated Diagnosis Comments HEMOGLOBIN A1C Routine 01/21/2014 2:22 PM CDT Obesity from Last 3 Months or Most Recently Relevant to Health Maintenance Results * HEMOGLOBIN A1C (01/21/2014 2:22 PM CDT) HEMOGLOBIN A1C 5.9 4.1 - 6.1 % of Hgb [facility] EST. AVG GLUCOSE, A1C 123 mg/dL [facility] Comment: The reported estimated average glucose (eAG) based on the HbA1c determination is calculated using the ADAG study equation. Further interpretative information is available in the Laboratory Services Policy Manual on the [facility] Intranet at: [email or web address] [email or web address]/ Blood 01/21/2014 2:22 PM CDT 01/21/2014 9:17 PM CDT us Liya Ring MD CHEMISTRY ORDERABLES Final Res ult [facility] CLIA# [id number] [address] [place] [address] from Last 3 Months or Most Recently Relevant to Health Maintenance Insurance OPEN ACCESS O Care Teams Irrigation Foreman Relationship Specialty Start Date End Date Lucero Chirinos MD PCP - General Family Practice 01/22/15
--- OUTSIDE RECORDS SUMMARY | 2025-03-10 07:59 | XMS_ITS | Encounter Summary ---
Author Organization [employer] Address [address] [place] [address] Care Team Providers Care Purse Maker Name Role Phone Lucero Chirinos MD Primary Care Provider [phone] Encounter Details Date Type Department Care Team (Late st Contact Info) Description 12/03/2007 Outpatient Historical [facility] Letha Jade MD [address] [place] [address] Hydronephrosis Social History Tobacco Use Types Packs/Day Years Used Date Smoking Tobacco: Never Assessed Comments Unknown Sex and Gender Information Value Date Recorded Sex Assigned at Not on file Legal Sex Female 5:30 AM ON SITE PROPERTY MANAGER Gender Identity Not on file Sexual Orientation Not on file documented as of this encounter Plan of Treatment Not on file documented as of this encounter Visit Diagnoses Diagnosis Hydronephrosis documented in this encounter Care Teams Purse Maker Relationship Specialty Start Date End Date Lucero Chirinos MD PCP - General Family Practice 01/22/15 documented as of this encounter
--- OUTSIDE RECORDS SUMMARY | 2025-03-10 07:59 | XMS_ITS | Encounter Summary ---
Author Organization [facility] Address [address] [place] [address] Phone Care Team Providers Care Dump Worker Name Role Phone Lucero Chirinos MD Primary Care Provider Reason for Visit * Reason Comments Medication Refill Encounter Details Date Type Department Care Team (Late st Contact Info) Description 04/12/2021 Refill [facility] - Primary Care - Amanda [address] [place] [address] Lucero Chirinos MD [address] [place] [address] Medication Refill Social History Tobacco [...] have Coronavirus / COVID-19? No / Unsure 03/25/2021 4:28 PM CDT documented as of this encounter Miscellaneous Notes * Telephone Encounter - Kalli Morales RN - 04/12/2021 12:52 PM CDT Medication failed the protocol, provider to review and approve the medication order if appropriate. Requested Prescriptions Pending Prescriptions Disp Refills Lisinopril 30 MG Tablet [Pharmacy Med Name: LISINOPRIL 30MG TABLETS] 90 Tablet 1 Sig: TAKE 1 TABLET BY MOUTH DAILY BRIDGETT Inhibitors Protocol Passed - 04/12/2021 12:52 PM Passed - Serum potassium on record in past 12 months POTASSIUM Date Value Ref Range Status 03/22/2021 3.9 3.5 - 5.1 mmol/L Final Passed - Blood pressure on record in past 12 months Clinician-entered: BP Readings from Last 3 Encounters: 03/26/21 138/70 02/22/21 132/88 09/14/20 130/80 Patient-entered: No data recorded Passed - Visit with relevant provider in past 12 months or upcoming 90 days Recent Visits Date Type Provider Dept 03/26/21 Office Visit Lucero Chirinos MD [facility] 02/22/21 Office Visit Chrissy Melissa APN, BLEACH PLANT OPERATOR [facility] 09/14/20 Office Visit Lucero Chirinos MD [facility] Showing recent visits within past 365 days and meeting all other requirements Future Appointments No visits were found meeting these conditions. Showing future appointments within next 90 days and meeting all other requirements Passed - GFR on record in past 12 months GFR, EST. NONAFRICAN Date Value Ref Range Status 03/22/2021 >60 >=60 Final simvastatin (ZOCOR) 10 MG Tablet [Pharmacy Med Name: SIMVASTATIN 10MG TABLETS] 90 Tablet 1 Sig: TAKE 1 TABLET BY MOUTH EVERY EVENING Hmg CoA Reductase Inhibitors Protocol Passed - 04/12/2021 12:52 PM Passed - Visit with relevant provider in past 12 months or upcoming 90 days Recent Visits Date Type Provider Dept 03/26/21 Office Visit [facility] 02/22/21 Office Visit Chrissy Melissa APN, BLEACH PLANT OPERATOR [facility] 09/14/20 Office Visit Lucero Chirinos MD [facility] Showing recent visits within past 365 days [...] Range Status 03/22/2021 94.1 <130 mg/dL Final simvastatin (ZOCOR) 5 MG Tablet [Pharmacy Med Name: SIMVASTATIN 5MG TABLETS] 90 Tablet 1 Sig: TAKE 1 TABLET BY MOUTH EVERY EVENING Hmg CoA Reductase Inhibitors Protocol Passed - 04/12/2021 12:52 PM Passed - Visit with relevant provider in past 12 months or upcoming 90 days Recent Visits Date Type Provider Dept 03/26/21 Office Visit Lucero [facility] 02/22/21 Office Visit Chrissy Melissa APN, CANDICE [facility] 09/14/20 Office Visit Lucero Chirinos MD [facility] Showing recent visits within past 365 days [...] Range Status 03/22/2021 94.1 <130 mg/dL Final documented in this encounter Plan of Treatment Not on file documented as of this encounter Visit Diagnoses Diagnosis Essential hypertension Unspecified essential hypertension Hyperlipidemia, unspecified hyperlipidemia type documented in this encounter Additional Health Concerns Assessment Noted Time PHQ-9 Depression Total Score: 0 09/14/19 21 4:00 PM RIVETER HAND documented as of this encounter Care Teams Dump Worker Relationship Specialty Start Date End Date Lucero Chirinos MD PCP - General Family Medicine 05/26/15 12/09/22 documented as of this encounter
--- OUTSIDE RECORDS SUMMARY | 2025-03-10 07:59 | XMS_ITS | Encounter Summary ---
Author Organization [facility] Address [address] [place] [address] Phone Care Team Providers Care Flow Machine Operator Name Role Phone Lucero Chirinso MD Primary Care Provider [phone] Reason for Visit * Reason Comments Medication Refill Encounter Details Date Type Department Care Team (Late st Contact Info) Description 2021 Refill [facility] - Primary Care - Amanda [address] [place] [address] Lucero Chirinos MD [address] [place] [address] Medication Refill Social History Tobacco [...] Telephone Encounter - Kalli Morales RN - 2021 9:11 AM CDT Medication failed the protocol, provider to review and approve the medication order if appropriate. Requested Prescriptions Pending Prescriptions Disp Refills celecoxib (CeleBREX) 100 MG Capsule [Pharmacy Med Name: CELECOXIB 100MG CAPSULES] 180 Capsule 1 Sig: TAKE 1 CAPSULE BY MOUTH TWICE DAILY NSAIDs Protocol Failed - 2021 9:11 AM Failed - Normal serum creatinine in past 12 months CREATININE, BLOOD Date Value Ref Range Status 03/22/2021 0.59 (L) 0.60 - 1.10 mg/dL Final Passed - Visit with relevant provider in past 12 months or upcoming 90 days Recent Visits Date Type Provider Dept 03/26/21 Office Visit [facility]/22/21 Office Visit Chrissy Melissa APN, FOOD COUNTER ATTENDANT [facility] 09/14/20 Office Visit Lucero Chirinos MD [facility] Showing recent visits within past 365 days and meeting all other requirements Future Appointments No visits were found meeting these conditions. Showing future appointments within next 90 days and meeting all other requirements Passed - No matching NSAID med order in past 45 days No matching medication orders between 03/02/2021 9:11 AM and 2021 9:11 AM Passed - AST less than 55 or ALT less than 90 in past 12 months SGOT (AST) Date Value Ref Range Status 03/22/2021 16 <=32 U/L Final SGPT (ALT) Date Value Ref Range Status 03/22/2021 17 <=41 U/L Final Passed - HGB greater than 10 or HCT greater than 30 in past 12 months HEMOGLOBIN (HGB) Date Value Ref Range Status 03/22/2021 14.1 12.0 - 15.8 g/dL Final HEMATOCRIT (HCT) Date Value Ref Range Status 03/22/2021 44.7 36.0 - 47.0 % Final [facility]: COX2 Inhibitors Passed - 2021 9:11 AM Passed - Valid encounter within last 6 months Past Office Visits Recent Outpatient Visits 3 weeks ago Essential hypertension [facility] Lucero Chirinos MD 1 month ago Bloody stools [facility] Chrissy Melissa APN, FOOD COUNTER ATTENDANT 7 months ago Essential hypertension [facility] Lucero Chirinos MD 1 year ago Physical exam, annual (Adult) [facility] Lucero Chirinos MD 1 year ago Essential hypertension [facility] Lucero Chirinos MD Upcoming Appointments Future Appointments In 5 months Lucero Chirinos MD [facility] BEHAVIORAL HEALTH CASE MANAGER - Recent and Past Visits Recent Visits Date Type Provider Dept 03/26/21 Office Visit Lucero Chirinos MD [facility] 02/22/21 Office Visit Chrissy Melissa APN, FOOD COUNTER ATTENDANT [facility] 09/14/20 Office Visit Lucero Chirinos MD [facility] 03/10/20 Office Visit Lucero Chirinos MD [facility] Showing recent visits within past 460 days [...] Diagnoses Not on filedocumented in this encounter Additional Health Concerns Assessment Noted Time PHQ-9 Depression Total Score: 0 09/14/19 4:00 PM PITCH FILLER documented as of this encounter Care Teams Flow Machine Operator Relationship Specialty Start Date End Date Lucero Chirinos MD PCP - General Family Medicine 05/26/15 12/09/22 documented as of this encounter
--- OUTSIDE RECORDS SUMMARY | 2025-03-10 07:59 | XMS_ITS | Encounter Summary ---
Author Organization [email or web address] Address [address] [place] [address] Care Team Providers Care Export Freight Clerk Name Role Phone Lucero Chirinos MD Primary Care Provider [phone] Reason for Visit * Reason Comments Medication Refill Encounter Details Date Type Department Care Team (Late st Contact Info) Description 01/06/2016 Refill [facility] Onc [address] [address] Liya Ring MD NO ADDRESS ON FILE Social History Tobacco Use Types Packs/Day Years Used Date Smoking Tobacco: Never Alcohol Use Standard Drinks/Week Comments Yes 0 (1 standard drink = 0.6 oz pur e alcohol) Rarely Comments No Sex and Gender Information Value Date Recorded Sex Assigned at Not on file Legal Sex Female 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
--- OUTSIDE RECORDS SUMMARY | 2025-03-10 07:59 | XMS_ITS | Encounter Summary ---
Author Organization [employer] Address [address] [place] [address] Care Team Providers Care Lodge Sales Associate Name Role Phone Lucero Chirinos MD Primary Care Provider [phone] Encounter Details Date Type Department Care Team (Late st Contact Info) Description 10/05/2007 Outpatient Historical [facility] [address] 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
--- OUTSIDE RECORDS SUMMARY | 2025-03-10 07:59 | XMS_ITS | Encounter Summary ---
Author Organization [facility] Address [address] [place] [address] Phone Care Team Providers Care Baggage Agent Name Role Phone Unavailable Primary Care Provider Unavailabl e Reason for Visit * Reason Comments Medication Refill Encounter Details Date Type Department Care Team (Late st Contact Info) Description 01/31/2023 Refill [facility] Family Medicine [facility] [address] [place] [address] Inna Millan MD [address] [place] [address] Medication Refill Social History Tobacco Use Types [...] Total Score: 0 09/14/19 21 4:00 PM COPY CUTTER documented as of this encounter
--- OUTSIDE RECORDS SUMMARY | 2025-03-10 07:59 | XMS_ITS | Encounter Summary ---
Author Organization [facility] Address [address] [place] [address] Phone Care Team Providers Care Print Designer Name Role Phone Unavailable Primary Care Provider Unavailabl e Reason for Visit * Reason Comments Medication Refill Encounter Details Date Type Department Care Team (Late st Contact Info) Description 01/13/2023 Refill [facility] [address] [place] [address] Inna Millan MD [address] [place] [address] Medication Refill Social History Tobacco Use Types [...] Total Score: 0 09/14/19 21 4:00 PM ELECTRICAL MECHANIC documented as of this encounter
--- OUTSIDE RECORDS SUMMARY | 2025-03-10 07:59 | XMS_ITS | Encounter Summary ---
Author Organization [employer] Address [address] [place] [address] Care Team Providers Care Assembly Machine Feeder Name Role Phone Lucero Chirinos MD Primary Care Provider [phone] Reason for Visit * Reason Comments Medication Refill Encounter Details Date Type Department Care Team (Late st Contact Info) Description 12/06/2015 Refill [facility] Cancer and Breast Med Onc [address] [address] Liya Ring MD NO ADDRESS ON FILE Social History Tobacco Use Types Packs/Day Years Used Date Smoking Tobacco: Never Alcohol Use Standard Drinks/Week Comments Yes 0 (1 standard drink = 0.6 oz pur e alcohol) Rarely Comments No Sex and Gender Information Value Date Recorded Sex Assigned at Not on file Legal Sex Female 5: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
--- OUTSIDE RECORDS SUMMARY | 2025-03-10 07:59 | XMS_ITS | Encounter Summary ---
Author Organization [employer] [facility] Address [address] [place] [address] Care Team Providers Care Rn Occupational Health Name Role Phone Lucero Chirinos MD Primary Care Provider [phone] Encounter Details Date Type Department Care Team (Late st Contact Info) Description 09/28/2007 Outpatient Historical [facility] Bismark Jade MD [address] [facility] [address] [place] [address] [place] [address] [facility] [address] [place] [address] Social History Tobacco Use Types Packs/Day Years Used Date Smoking Tobacco: Never Assessed Comments Unknown Sex and Gender Information Value Date Recorded Sex Assigned at Not on file Legal Sex Female 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 Gender Identity Not on file Sexual Orientation Not on file documented as of this encounter Plan of Treatment Not on file documented as of this encounter Procedures Procedure Name Priority Date/Time Associated Diagnosis Comments IR TUBE PLACEMENT Routine 09/28/2007 1:4 2 PM MILLER 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 documented in this encounter Results * IR TUBE PLACEMENT (09/28/2007 1:42 PM MILLER 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) Anatomical Region Laterality Modality Other 09/28/2007 1:42 PM MILLER 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 Narrative 09/29/2007 7:44 AM MILLER 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 [facility] [address] [place], [place] [address] Admit Date: 09/28/2007 ARACELI LIM Sex: F Admit Prov: BISMARK JADE Date: 1960 Primary Care Prov: CMRN: [id number] [facility] [address] [place] [address] IMAGING SERVICES Ordering Prov: N/A Accession Number: [id number] Interpretation NEPHROSTOMY TUBE CHANGE 09/28/2007 History: Ureteral obstruction. Technique: The patient was placed on the fluoroscopy table in the prone position. The patient's right flank was prepped and draped in the usual sterile fashion. Lidocaine was used to anesthetize the skin and subcutaneous tissues. A 0.035 Glidewire was advanced into the right renal collecting system through the patient's existing nephrostomy tube. The existing nephrostomy tube was removed and replaced with a new 8 Kazakh locking pigtail catheter. The catheter was secured to the skin and a sterile dressing was applied. The patient tolerated the procedure well with no immediate complications. Impression: Status post exchange of right nephrostomy tube. . Dictated by: JHONATAN STEPHEN 09/28/2007 14:17 Electronically signed by: JHONATAN STEPHEN 09/29/2007 07:44 Transcribed: 09/28/2007 14:55 SJ Procedure Note Jhonatan Stephen - 09/29/2007 [facility] [address] [place], [place] [address] Admit Date: 09/28/2007 ARACELI LIM Sex: F Admit Prov: BISMARK JADE Date: 1960 Primary Care Prov: CMRN: [id number] [id number] IMAGING SERVICES Ordering Prov: N/A Interpretation NEPHROSTOMY TUBE CHANGE 09/28/2007 History: Ureteral obstruction. Technique: The patient was placed on the fluoroscopy table in theprone position. The patient's right flank was prepped and draped in theusual sterile fashion. Lidocaine was used to anesthetize the skin and subcutaneous tissues. A 0.035 Glidewire was advanced into the rightrenal collecting system through the patient's existing nephrostomy tube.The existing nephrostomy tube was removed and replaced with a new 8French locking pigtail catheter. The catheter was secured to the skin onur sterile dressing was applied. The patient tolerated the procedurewell with no immediate complications. Impression: Status post exchange of right nephrostomy tube. . Dictated by: JHONATAN STEPHEN 09/28/2007 14:17 Electronically signed by: JHONATAN STEPHEN 09/29/2007 07:44 Transcribed: 09/28/2007 14:55 SJ Bismark Jade MD IR ORDERABLES Final Result documented in this encounter Visit Diagnoses Not on filedocumented in this encounter Care Teams Rn Occupational Health Relationship Specialty Start Date End Date Lucero Chirinos MD PCP - General Family Practice 01/22/15 documented as of this encounter
--- OUTSIDE RECORDS SUMMARY | 2025-03-10 07:59 | XMS_ITS | Encounter Summary ---
Author Organization [facility] Address [address] [place] [address] Phone Care Team Providers Care Director Meetings Name Role Phone Lucero Chirinos MD Primary Care Provider [phone] Reason for Visit * Reason Comments Medication Refill Encounter Details Date Type Department Care Team (Late st Contact Info) Description 10/06/2021 Refill [facility] - Primary Care - Amanda [address] [place] [address] Lucero Chirinos MD [address] [place] [address] Medication Refill Social History Tobacco [...] Total Score: 0 09/14/19 21 4:00 PM FUNERAL HOME ASSOCIATE documented as of this encounter Care Teams Director Meetings Relationship Specialty Start Date End Date Lucero Chirinos MD PCP - General Family Medicine 05/26/15 12/09/22 documented as of this encounter
--- OUTSIDE RECORDS SUMMARY | 2025-03-10 07:59 | XMS_ITS | Encounter Summary ---
Author Organization [employer] Address [address] [place] [address] Care Team Providers Care Jet Worker Name Role Phone Lucero Chirinos MD Primary Care Provider [phone] Reason for Visit * Reason Comments Medication Refill Encounter Details Date Type Department Care Team (Late st Contact Info) Description 07/19/2016 Refill [facility] Cancer and Breast Med Onc [address] [address] Liya Ring MD NO ADDRESS ON FILE Social History Tobacco Use Types Packs/Day Years Used Date Smoking Tobacco: Never Alcohol Use Standard Drinks/Week Comments Yes 0 (1 standard drink = 0.6 oz pur e alcohol) Rarely Comments No Sex and Gender Information Value Date Recorded Sex Assigned at Not on file Legal Sex Female 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
--- OUTSIDE RECORDS SUMMARY | 2025-03-10 07:59 | XMS_ITS | Encounter Summary ---
Author Organization [facility] Address 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
--- OUTSIDE RECORDS SUMMARY | 2025-03-10 07:59 | XMS_ITS | Clinical Summary ---
Author Organization [facility] Address [address] [address] Phone Care Team Providers Care Gaming Dealer Name Role Phone Unavailable Primary Care Provider Unavailabl e Allergies Active Allergy Reactions Criticality Noted Date Comments Iodinated Contrast Media Hives Wound Dressing Adhesive Other (see Comments) High Medications propranolol (INDERAL) 10 MG TabletIndications:A nxiety Take 1 Tablet by mouth 3 times daily as needed (panick attacks). 90 Tablet 3 2 Active levothyroxine (SYNTHROID) 112 MCG TabletIndications:A cquired hypothyroidism Take 1 Tablet by mouth daily. 90 Tablet 1 2 Active citalopram (CeleXA) 20 MG TabletIndications:A nxiety TAKE 1 TABLET BY MOUTH DAILY 90 Tablet 3 Active celecoxib (CeleBREX) 100 MG Capsule TAKE 1 CAPSULE BY MOUTH TWICE DAILY 180 Capsule 3 Active simvastatin (ZOCOR) 10 MG Tablet TAKE 1 TABLET BY MOUTH IN THE EVENING 90 Tablet 3 Active hydroCHLOROthiazide 12.5 MG TabletIndications:E ssential hypertension TAKE 1 TABLET BY MOUTH DAILY 90 Tablet 3 Active amLODIPine (NORVASC) 5 MG TabletIndications:E ssential hypertension TAKE 1 TABLET BY MOUTH DAILY 90 Tablet 3 Active lisinopril (PRINIVIL, ZESTRIL) 40 MG TabletIndications:E ssential hypertension TAKE 1 TABLET BY MOUTH DAILY 90 Tablet 3 Active Active Problems Problem Noted Date Diagnosed Date S/P TKR (total knee replacement), left 2 Obesity (BMI 30-39.9) 03/26/2021 Prediabetes 07/22/2019 OAB (overactive bladder) 07/22/2019 H/O bilateral mastectomy 03/23/2018 Hyperlipidemia 09/18/2017 IFG (impaired fasting glucose) 01/20/2017 Vitamin B12 deficiency 12/17/2015 Osteoarthritis of both knees 12/17/2015 Hypothyroidism Essential hypertension Anxiety Resolved Problems Problem Noted Date Diagnosed Date Resolved Date Obesity, Class III, BMI 40-4 9.9 (morbid obesity) 11/18/2016 03/26/2021 Immunizations Immunization Administration Dates Next Due Covid-19 Vaccine, Vector-nr, Rs-ad26, Pf, 0.5 Ml ([email or web address]) 10/30/2020 Influenza Vaccine 06/11/2018 Influenza Vaccine greater than 3 yrs 05/30/2017, 05/28/2015,05/28/2013 Influenza Vaccine, Quadrivalent, PF 05/31/2022,1 ,06/21/2019 Influenza, Seasonal, Injectable, Undefined 05/28,05/28/2013 Zoster Vaccine Recombinant 08/25/2021 Social History Tobacco Use Types Packs/Day Years Used Date Smoking Tobacco: Never Smokeless Tobacco: Never Tobacco Cessation:Counseling Given: No Alcohol Use Standard Drinks/Week Comments No 0 [...] Sign Reading Time Taken Comments Blood Pressure 122/80 05/31/2022 8:40 AM CDT Pulse 70 05/31/2022 8:40 AM CDT Temperature 36.3 C (97.3 F) 05/31/2022 8:40 AM CDT Respiratory Rate 16 05/31/2022 8:40 AM CDT Oxygen Saturation 96% 05/31/2022 8:40 AM CDT Inhaled Oxygen Concentration - - Weight 112.9 kg (249 lb) 05/31/2022 8:40 AM CDT Height 165.1 cm (5' 5) 05/31/2022 8:40 AM CDT Body Mass Index 41.44 05/31/2022 8:40 AM CDT Plan of Treatment Health Maintenance Due Date Last Done Comments Hepatitis C Virus (HCV) Screening 1960 TdaP Immunization 1960 Immunochemical Fecal Occult Blood 2005 Pneumococcal Immunization (50+ years) (1 of 1 - PCV) 2010 Zoster Immunization (2 of 2) 10/20/2021 08/25/2021 Cologuard 01/06/2022 01/06/2019 SARS-COV-2 Immunization (3 - season) 2024 09/16/2021, 10/30/2020 Influenza Immunization (#1) 04/28/202511/2021, 08/25/2021, 06/21/2019, Additional history exists Respiratory Syncytial Virus (RSV) Immunization (Adult) (1 - 1-dose 75+ series) 2035 Colonoscopy Discontinued 07/05/2021 Colorectal Cancer Screening Discontinued Hepatitis B Immunization Aged Out No longer eligible based on patient's age to complete this topic Human Papillomavirus (HPV) Immunization Aged Out No longer eligible based on patient's age to complete this topic Meningococcal Immunization (ACWY) Aged Out No longer eligible based on patient's age to complete this topic Rotavirus Immunization Aged Out No lo nger eligible based on patient's age to complete this topic Procedures Procedure Name Priority Date/Time Associated Diagnosis Comments HM COLONOSCOPY 07/05/2021 12:00 AM LABORATORY COURIER COLOGUARD Routine 01/06/2019 12:15 PM CDT Screening for malignant neoplasm of colon from Last 3 Months or Most Recently Relevant to Health Maintenance Results * HM COLONOSCOPY (07/05/2021 12:00 AM LABORATORY COURIER) 07/05/2021 us Not On File Provider PROCEDURE/MINOR SURGICAL OR DERABLES Final Result SCAN * COLOGUARD (01/06/2019 12:15 PM CDT) Cologuard Negative Not Applicable [employer] Comment: A negative result indicates a low likelihood that a colorectal cancer (CRC) or an advanced adenoma (adenomatous polyps with more advanced pre-malignant features) is present. The chance that a person with a negative Cologuard test has a colorectal cancer is less than 1 in 1500 (negative predictive value >99.9%) or has an advanced adenoma is less than 5.3% (negative predictive value 94.7%). These data are based on a prospective cross-sectional screening study of 10,000 individuals at average risk for colorectal cancer who were screened with both Cologuard and colonoscopy. (Kapil Coulter. et al, N Engl J Med 2014;370(14):1518-3593) COLOGUARD RE-SCREENING RECOMMENDATION: Periodic routine colorectal cancer screening is an important part of preventive healthcare for asymptomatic persons at average risk for colorectal cancer. Following a negative Cologuard result, the [place] [employer] and U.S. Multi-Society Task Force screening guidelines recommend a Cologuard re-screening interval of 3 years. References: [place] [employer] (ACS). Colorectal cancer prevention and early detection. [place], [place]: [place] [employer]; [updated 2015Dec 19]. https://www.cancer.org/cancer/dqdvw-icisyu-qhnfgi/jbnerohfh-uiobznlsy-aagppoz/ acs-recommendations.html. Accessed April 27, 2018; Doron DK, Ulises ALLEN, Alfred KenneyK, Colorectal Cancer Screening: Recommendations for Physicians and Patients from the U.S. Multi-Society Task Force on Colorectal Cancer Screening, Am J Gastroenterology 2017; 112:8206-6992. Test Type: Composite algorithmic analysis of stool DNA-biomarkers with hemoglobin immunoassay. Quantitative values of individual biomarkers are not reportable and are not associated with individual biomarker result reference ranges. Precautions and Limitations: Cologuard is intended for colorectal cancer screening of adults of either sex, 50 years or older, who are at typical average-risk for colorectal cancer. A negative Cologuard test result does not guarantee the absence of colorectal cancer or advanced adenoma (pre-cancer). Patients with a negative Cologuard test result should be advised to continue participating in a colorectal cancer screening program. Cologuard may produce a positive result, even though a colonoscopy may not find colorectal cancer or precancerous polyps. The performance of Cologuard has been established in a cross sectional study (i.e., single point in time). Performance has not been evaluated in adults who have been previously tested with Cologuard or in patients less than 50 years of age. Cologuard has been approved for use by the U.S. FDA. Cologuard performance data in a 10,000 patient pivotal study using colonoscopy as the reference method can be accessed at the following location: www.[employer].[place]/results. Additional description of the Cologuard test process, warnings and precautions can be found at www.cologuardtest.com. Rx Only. Stool specimen (specimen) 01/06/2019 12:15 PM CDT 01/08/2019 12:23 PM CDT us Lucero Chirinos MD BODY FLUIDS & STOOLS ORDERAB LES Final Result [employer] [address] [place] [address], [facility] [address] [place] [address] from Last 3 Months or Most Recently Relevant to Health Maintenance Insurance [facility]
--- OUTSIDE RECORDS SUMMARY | 2025-03-10 07:59 | XMS_ITS | Clinical Summary ---
Author Organization [facility] [address] Address [address] [place] [address] Care Team Providers Care Exchange Specialist Name Role Phone CarlosAmina motleyMadiha PA Unavailable [phone] Siva Boswell MD Unavailable [phone] Brenda Carmona NP Primary Care Provider [phone] Allergies Active Allergy Reactions Criticality Noted Date [...] 1 tablet (112 mcg total) by mouth parts counterperson before breakfast 90 tablet 3 10/09/19 25 [...] 09/25/2023 Assessment & Plan (10/09/2024 11:09 AM NURSE FIRST ASSIST): BMI Follow-up includes: nutrition counseling. Assessment & [...] 12/31/2020 Assessment & Plan (09/06/2024 10:24 AM NURSE FIRST ASSIST): Clinically euthyroid. Refill levothyroxine 112 mcg daily. Will need labs in the future. Assessment & Plan (03/14/2024 6:40 PM CDT): Chronic. Clinically euthyroid. Check TSH and adjust levothyroxine as needed. Patient denies any missed doses Assessment & Plan (12/14/2023 6:06 PM CDT): Chronic. Euthyroid. Continue rx OAB (overactive bladder) 07/22/2019 Prediabetes 07/22/2019 Assessment & Plan (10/09/2024 11:08 AM NURSE FIRST ASSIST): Last A1c 6% in 2022. Will recheck with labs. Assessment & Plan (03/14/2024 6:40 PM CDT): Chronic. Control uncertain. Encouraged healthy diet, exercise and weight loss. Monitor H/O bilateral mastectomy 03/23/2018 Hyperlipidemia 09/18/2017 Assessment & Plan (09/06/2024 10:24 AM NURSE FIRST ASSIST): Chronic, continue simvastatin 10 mg daily. Assessment [...] 12/01/2011 Assessment & Plan (09/06/2024 10:23 AM NURSE FIRST ASSIST): Chronic. HTN controlled. Refill amlodipine and lisinopril. [...] 12/01/2011 Assessment & Plan (09/06/2024 10:23 AM NURSE FIRST ASSIST): Anxiety is chronic and well controlled. Refill citalopram 20 mg Assessment & Plan (03/14/2024 6:40 PM CDT): Chronic. Controlled. Continue citalopram as patient is not yet willing to consider weaning the dose. Brief supportive counseling provided HX: breast cancer 05/21/2009 Overview (04/20/2021): Overview: Dx in 2001. Left Breast T1 N0 Stage 1, ER (+) MS (+) HER2 (+), Tamoxifen Dx in 2001. Left Breast T1 N0 Stage 1, ER (+) MS (+) HER2 (+), Tamoxifen Resolved Problems Problem Noted Date Diagnosed Date Resolved Date Primary osteoarthritis of both knees 06/21/2022 02/07/2023 Arthritis of knee 06/21/2022 02/07/2023 Ventricular premature complexes 03/21/2017 02/07/2023 Palpitations 02/21/2017 03/14/2024 IFG (impaired fasting glucose) 01/20/2017 02/07/2023 Obesity (BMI 30-39.9) 11/18/20162022 Osteoarthritis of both knees 12/17/2015 02/07/2023 Encounters Date Type Department Care Team Description 02/14/2025 Telephone [facility] Primary Care at [address] [address] Brenda Carmona NP Additional Services Or Orders from Last 3 Months Immunizations Immunization Administration Dates Next Due Influenza, Quadrivalent, Spl it, Preservative Free, Intramuscular 08/16/2023,05/31/2022,08/25/2021,06/21 Influenza, Trivalent, Cell Culture-based MDCK, Preservative Free, Antibiotic Free, Intramuscular 08/29/2024 Influenza, Trivalent, IM (MDV) 05/30/2017,2014,05/28/2013 Influenza, Trivalent, Preser vative Free, Intramuscular 06/11/2018 Influenza, Unspecified 05/20/2024(Deferr ed: Patient Refused),08/28/2023(Deferred: Patient Refused),05/28/2022,05/28/2015, 013 Tdap 01/04/2023 ZOSTER Recombinant 08/25/2021 Surgical History Surgery Date Site/Laterality Comments OTHER SURGICAL HISTORY Bi lateral mastectomy 2002: Hysterectomy, vaginal HYSTERECTOMY W/ BILATERAL SALPINGOOPHORECTOMY total for fibroid and persistent enlarged uterus. no longer needs pap URETERAL STENT PLACEMENT TOTAL KNEE ARTHROPLASTY Bilateral COLONOSCOPY W/ POLYPECTOMY 07/05/2021 Tubular adenomas seen. Repeat in [address] Andrew SECTION [id number] Medical History Medical History Date Comments Osteoarthritis Osteoarthritis Disorder of thyroid Thyroid dise ase Hypertension Hypertension Malignant neoplasm of female breast (HCC) Cancer, breast Hx Other Medical Bi lateral mast ectomy 2002 Motion sickness Arrhythmia irregular heartb eat Asthma asthma when she was younger Ventricular premature complexes 03/21/2017 Palpitations 02/21/2017 Family History Medical History Relation Name Comments Thyroid cancer Father Breast cancer Mother Mary Lim Cancer Mother Mary Lim Hypertension Mother Mary Lim Multiple myeloma Mother Mary Lim Cancer Other 1 Family history of Cancer, unknown; Hypertension Other 2 Family history of Hypertension; Colon cancer Neg Hx Relation Name Status Comments Father Mother Mary Lim Other 1 Other 2 Social History Tobacco Use Types Packs/Day Years [...] on file Legal Sex Female 12:27 AM NURSE FIRST ASSIST Gender Identity Not on file Sexual Orientation Not on file Obstetrics History Last Filed Vital Signs Vital Sign Reading Time Taken Comments Blood Pressure 124/74 05/20/2024 2:41 PM CDT Pulse 86 05/20/2024 2:41 PM CDT Temperature 36.8 C (98.2 F) 05/20/2024 2:37 PM CDT Respiratory Rate 18 04/22/2024 2:22 PM CDT Oxygen Saturation 98% 05/20/2024 2:37 PM CDT Inhaled Oxygen Concentration - - Weight 115.7 kg (255 lb) 10/09/2024 10:27 AM NURSE FIRST ASSIST Height 165.1 cm (5' 5) 05/20/2024 2:37 PM CDT Body Mass Index 42.43 05/20/2024 2:37 PM CDT Plan of Treatment Health Maintenance Due Date Last Done Comments Hepatitis B Screening 1978 Zoster Vaccine (2 of 2) 10/20/2021 08/25/2021 Regular Well Visit/Exam 18-64 03/14/2025 03/14/2024, 02/07/2023 Influenza Vaccine (#1) 2025 , 08/16/2023, 05/31/2022, Additional history exists Depression Screening 05/20/2025 05/20/2024, 03/14/2024, 09/25/2023, Additional history exists Colon Cancer Screening-Colonoscopy 02/17/2028 02/16/2023, 07/05/2021 DTaP/Tdap/Td Vaccine (2 - Td or Tdap) 01/04/2033 01/04/2023 Colon Cancer Screening-CT Colonography Discontinued 02/16/2023 Colon Cancer Screening-DNA Stool Discontinued 02/16/2023 Colon Cancer Screening-FIT Discontinued 02/16/2023 Colon Cancer Screening-Sigmoidoscopy Discontinued 02/16/2023 Hepatitis C Screening Completed 03/13/2023 Covid-19 Vaccine Completed 08/29/2024, , 10/30/2020 Pneumococcal vaccine <65 Aged Out No longer eligible based on patient's age to complete this topic Medical Devices Implanted Type Area Photolithographer Device Identifier Shelf Expiration Date Model / Serial / Lot [employer] [id number] Attune Cruciate Retain Cementless Knee Left 4 Component Femoral - [id number] Implanted:Qty: 1 on 12/21/2021 by Siva Boswell MD at [facility] Left: Knee [employer] 08/27/2029 [id number] / / [id number] [employer] [id number] Attune 6mm Cruciate Retaining Rotate Platform Knee 4 Insert - [id number] Implanted:Qty: 1 on 12/21/2021 by Siva Boswell MD at [facility] Left: Knee [employer] 08/27/2026 [id number] / / [id number] [employer] [id number] Attune Cementless Rotate Platform Knee 4 Baseplate Tibial - [id number] Implanted:Qty: 1 on 12/21/2021 by Siva Boswell MD at [facility] Left: Knee [employer] 05/27/2031 [id number] / / [id number] [employer] Attune Fb Tib Base Sz 4 Por [id number] - [id number] Implanted:Qty: 1 on 06/21/2022 by Siva Boswell MD at [facility] Right: Knee [employer] 10/26/2031 [id number] / / [id number] [employer] Attune Cruciate Retain Cementless Knee Right 4 Component Femoral [id number] - [id number] Implanted:Qty: 1 on 06/21/2022 by Siva Boswell MD at [facility] Right: Knee [employer] 07/27/2029 [id number] / / [id number] [employer] Attune 6mm Cruciate Retaining Fix Bearing Knee 4 Insert Tibial [id number] - [id number] Implanted:Qty: 1 on 06/21/2022 by iSva Boswell MD at [facility] Right: Knee [employer] 02/24/2027 [id number] / / [id number] Procedures Procedure Name Priority [...] - GEN ERAL ORDERABLES Final Result LEANDR[facility]ICHOLS [address] [place] [address] * COLONOSCOPY (02/16/2023 4:30 PM CDT) Hugo Provider HEALTH MAINTENANCE Final Result from Last 3 Months or Most Recently Relevant to Health Maintenance Insurance [employer] Member Subscriber Plan / Payer (Ef fective 2020-Present) Name:Araceli Lim Member ID:[id number] Relation to Subscriber:Self Name:Araceli Lim Subscriber ID:[id number] Payer ID:[id number] (NAIC) Type:[employer] Address: [address] [place] [address] ANTHEM ACCESS Advance Directives For more information, please contact: [phone] * Full Code (Latest Code Status on File) Date Activated Date Inactivated Comments 06/21/2022 4:34 PM 06/22/2022 8:04 PM * Full Code Date Activated Date Inactivated Comments 12/21/2021 1:16 PM 12/23/2021 7:53 PM Care Teams Exchange Specialist Relationship Specialty Start Date End Date Brenda Carmona NP [address] [facility] [address] [place] [address] PCP - General Family Medicine 10/09/24 Amina Gonzalez PA Physician Water Pollution Control Technician Orthopedic Surgery 12/22/21 Siva Boswell MD [address] [place] [address] DR PRIMO Ma [facility] [address] [place] [address] Surgeon Orthopedic Surgery 04/28/22
== END 2025-03-10 07:56 | disposition home or self-care (01) ==
PROVIDERS: PCP Family Medicine Sports Medicine; Visit Provider Family Medicine Sports Medicine
DX: Z01.10 Encounter for examination of ears and hearing without abnormal findings (principal); H90.3 Sensorineural hearing loss, bilateral; H93.13 Tinnitus, bilateral
CPT/HCPCS: 92557; 92567

== ENCOUNTER 2025-08-14 09:28 | Emergency (ER) | payer BC, SELFPAY ==
--- NOTE | ~2025-08-14 | CT_ITS ---
EXAMINATION: CT abdomen pelvis wo con DATE: 08/14/2025 10:35 INDICATION: Left flank pain TECHNIQUE: Computed tomography (CT) of the abdomen and pelvis was performed with 100 mL Omnipaque-350 intravenous contrast. Automated exposure control and iterative reconstruction technique were employed. The dose-length product was 1429.59 mGy-cm. COMPARISON: None FINDINGS: Unchanged linear discoid atelectasis/scarring in the left lower lobe. Heart size is normal. No pericardial or pleural effusion. Liver, gallbladder, spleen, pancreas and bilateral adrenal glands are normal. Mild right renal atrophy with small region of focal cortical scarring at the upper pole. 2 cm bilateral renal cysts with small amount of rim calcification at the periphery of the right-sided cyst. Nonobstructing right nephrolithiasis with 2 mm stone at the lower pole and 5 punctate <1 mm calcification is at the upper pole of the right kidney. There are a few additional parapelvic cysts at the left kidney. No stones identified at the left kidney or along the lateral ureters. The cecum, normal appendix and a few loops of nonobstructed small bowel extends into a large widemouthed infraumbilical ventral hernia. There is an additional small fat-containing umbilical hernia. Bladder is normal. The uterus is not identified and has likely been surgically resected. There are multiple surgical clips in the pelvis, several along the right external and internal iliac vessels and the obturator region suggesting prior pelvic lymph node dissection. A few are positioned along the anterior abdominal wall musculature along the right side of the ventral hernia which could be related to attempted hernia repair. No free intraperitoneal gas or fluid. No pathologically enlarged abdominal or pelvic lymphadenopathy. Mild lumbar and severe thoracic spondylosis. IMPRESSION: 1. No acute intra-abdominal/pelvic process. 2. Nonobstructing right nephrolithiasis. 3. Large infraumbilical ventral hernia containing nonobstructed large and small bowel as well as a normal appendix. Reviewed, dictated and finalized at location A. [facility] [employer]
--- OUTSIDE RECORDS SUMMARY | 2025-08-14 08:15 | XMS_ITS | Encounter Summary ---
Author Organization [facility] Address [address] [place] [address] Care Team Providers Care Candy Vendor Name Role Phone Amina Gonzalez Unavailable [phone] Siva Boswell MD Unavailable [phone] Brenda Carmona NP Primary Care Provider [phone] Reason for Visit * Reason Comments Abdominal Pain Aching pain on left flank since monday - worse at night, hard to sleep, Encounter Details Date Type Department Care Team (Late st Contact Info) Description 08/14/2025 8:15 AM BINGO ATTENDANT Office Visit [facility] at [address] [address] Joy Tran CHANGE OVER [address] [place] [address] [address] [place] [address] Acute left flank pain (Primary Dx) Social History Tobacco Use Types Packs/Day Years [...] points, staff should administer the PHQ-9) 0 04/07/2025 Comments No Sex and Gender Information Value Date Recorded Sex Assigned at Not on file Legal Sex Female 12:27 AM BINGO ATTENDANT Gender Identity Not on file Sexual Orientation Not on file documented as of this encounter Last Filed Vital Signs Vital Sign Reading Time Taken Comments Blood Pressure 128/82 08/14/2025 8:11 AM BINGO ATTENDANT Pulse 77 08/14/2025 8:08 AM BINGO ATTENDANT Temperature 36.3 C (97.4 F) 08/14/2025 8:08 AM BINGO ATTENDANT Respiratory Rate 18 08/14/2025 8:08 AM BINGO ATTENDANT Oxygen Saturation 96% 08/14/2025 8:08 AM BINGO ATTENDANT Inhaled Oxygen Concentration - - Weight 123.3 kg (271 lb 12.8 oz) 08/14/2025 8:08 AM BINGO ATTENDANT Height 165.1 cm (5' 5) 08/14/2025 8:08 AM BINGO ATTENDANT Body Mass Index 45.23 08/14/2025 8:08 AM BINGO ATTENDANT documented in this encounter Patient Instructions * Patient Instructions* Joy Tran NP - 08/14/2025 8:15 AM BINGO ATTENDANT 65-year-old female patient presents today with complaints of left flank pain times 2 days. Pain remains 5 out of 10 despite pain medication. Patient denies any dysuria. Urine dip normal in clinic. Denies any nausea vomiting diarrhea. Denies any previous abdominal surgery. Patient has no abdominal pain upon physical exam. Patient reports the pain has been intense enough that it is keeping her up at night. Concern for intraabdominal etiology. Color, Urine, POC Yellow Clarity, ur, POC Clear Clear Glucose, ur, POC Negative Negative Bilirubin, ur, POC Negative Negative Ketones, ur, POC Negative Negative Specific [place], POC 1.003 - 1.030 1.030 Blood, ur, POC Negative Negative pH, ur, POC 5.0 - 8.0 6.0 Protein, ur, POC Negative Negative Urobilinogen, urine, POC 0.2 - 1.0 mg/dL 0.2 Nitrite, ur, POC Negative Negative Leukocytes, ur, POC Negative Negative Lot Number [id number] O ATTENDANT O ATTENDANT O ATTENDANT documented in this encounter Progress Notes * Joy Tran NP - 08/14/2025 8:15 AM CST Images from the original note were not included. Subjective/Objective Patient ID: Araceli Lim is a 65 y.o. female. This patient has verbally consented to recording this visit in order to utilize AI technology in generating this note. Chief Complaint Abdominal Pain (Aching pain on left flank since monday - worse at night, hard to sleep, /) History of Present Illness Araceli Lim is a 65 year old female who presents with constant right flank pain. She reports constant right flank pain since Monday, localized without radiation. Pain worsens whenlying down in any position and improves somewhat when semi-reclined in a chair with a heating pad. She rates it 5/10 and finds it bothersome and functionally limiting but tolerable. She uses Tylenol for partial relief. She denies nausea, vomiting, diarrhea, fever, shortness of breath, abdominal pain, urinary symptoms, constipation, bowel issues, recent falls, or trauma. She has had a kidney infection in the past but is unsure if this feels similar. Review of Systems All other systems reviewed and are negative. Physical Exam CHEST: Lungs clear to auscultation bilaterally. ABDOMEN: Bowel sounds normal. Abdomen non-tender. Physical Exam Vitals reviewed. Constitutional: Appearance: Normal appearance. She is normal weight. HENT: Head: Normocephalic. Right Ear: External ear normal. Left Ear: External ear normal. Nose: Nose normal. Mouth/Throat: Mouth: Mucous membranes are moist. Eyes: Extraocular Movements: Extraocular movements intact. Cardiovascular: Rate and Rhythm: Normal rate and regular rhythm. Pulses: Normal pulses. Heart sounds: Normal heart sounds. Pulmonary: Effort: Pulmonary effort is normal. Breath sounds: Normal breath sounds. Abdominal: General: Bowel sounds are normal. Palpations: Abdomen is soft. Tenderness: There is no abdominal tenderness. Musculoskeletal: General: Normal range of motion. Arms: Cervical back: Normal range of motion. Skin: General: Skin is warm and dry. Capillary Refill: Capillary refill takes less than 2 seconds. Neurological: General: No focal deficit present. Mental Status: She is alert and oriented to person, place, and time. Mental status is at baseline. Psychiatric: Mood and Affect: Mood normal. Behavior: Behavior normal. Thought Content: Thought content normal. Judgment: Judgment normal. Vitals: 08/14/25 0808 08/14/25 0811 BP: 143/92 128/82 Pulse: 77 Resp: 18 Temp: 36.3 ??C (97.4 ??F) SpO2: 96% Weight: 123.3 kg (271 lb 12.8 oz) Height: 165.1 cm (5' 5) No results found. Past Medical History: Diagnosis Date Arrhythmia irregular heartbeat Asthma asthma when she was younger Disorder of thyroid Thyroid disease HX OTHER MEDICAL Bi lateral mastectomy 2002 Hypertension Hypertension Malignant neoplasm of female breast (HCC) Cancer, breast Motion sickness Osteoarthritis Osteoarthritis Palpitations 02/21/2017 Ventricular premature complexes 03/21/2017 Current Outpatient Medications: amLODIPine (NORVASC) 5 mg tablet, TAKE 1 TABLET BY MOUTH DAILY, Disp: 100 tablet, Rfl: 1 cholecalciferol (VITAMIN D-3) 25 mcg (1,000 unit) tablet, Take 1 tablet (1,000 Units total) by mouth daily, Disp: , Rfl: citalopram (CeleXA) 20 mg tablet, Take 1 tablet (20 mg total) by mouth daily, Disp: 90 tablet, Rfl:3 levothyroxine (SYNTHROID) 112 mcg tablet, Take 1 tablet (112 mcg total) by mouth stencil typist before breakfast, Disp: 90 tablet, Rfl: 3 lisinopriL (PRINIVIL,ZESTRIL) 40 mg tablet, TAKE 1 TABLET BY MOUTH DAILY, Disp: 100 tablet, Rfl: 1 simvastatin (ZOCOR) 10 mg tablet, Take 1 tablet (10 mg total) by mouth nightly, Disp: 90 tablet, Rfl: 3 ketoconazole (NIZORAL) 2 % cream, APPLY TO THE AFFECTED AREA TWICE DAILY NEEDED (Patient not taking: Reported on 08/14/2025), Disp: , Rfl: meclizine (ANTIVERT) 12.5 mg tablet, Take 1 tablet (12.5 mg total) by mouth 3 (three) times a day as needed for dizziness (Patient not taking: Reported on 08/14/2025), Disp: 90 tablet, Rfl: 4 Allergies Allergen Reactions Adhesive Blisters Adhesive Tape-Silicones Other (See comments) Contrast Dye [Iodinated Contrast Media] Hives Social History Tobacco Use Smoking status: Never Smokeless tobacco: Never Substance and Sexual Activity Drug use: Not Currently Frequency: 1.0 times per week Types: Alcohol, Marijuana Comment: uses cbc and thc for sleep Sexual activity: Defer Alcohol Use: Not At Risk (03/14/2024) AUDIT-C Frequency of Alcohol Consumption: Monthly or less Average Number of Drinks: 1 or 2 Frequency of Binge Drinking: Less than monthly Past Surgical History: Procedure Laterality Date SECTION COLONOSCOPY W/ POLYPECTOMY 07/05/2021 Tubular adenomas seen. Repeat in [address] Andrew HYSTERECTOMY W/ BILATERAL SALPINGOOPHORECTOMY total for fibroid and persistent enlarged uterus. no longer needs pap OTHER SURGICAL HISTORY Bi lateral mastectomy 2002: Hysterectomy, vaginal TOTAL KNEE ARTHROPLASTY Bilateral URETERAL STENT PLACEMENT Procedures Assessment/Plan Results Labs Urinalysis (08/14/2025): Within normal limits Recent Results (from the past 4 hours) POCT urinalysis dipstick Collection Time: 08/14/25 8:43 AM Result Value Ref Range Color, Urine, POC Yellow Clarity, ur, POC Clear Clear Glucose, ur, POC Negative Negative Bilirubin, ur, POC Negative Negative Ketones, ur, POC Negative Negative Specific [place], POC 1.030 1.003 - 1.030 Blood, ur, POC Negative Negative pH, ur, POC 6.0 5.0 - 8.0 Protein, ur, POC Negative Negative Urobilinogen, urine, POC 0.2 0.2 - 1.0 mg/dL Nitrite, ur, POC Negative Negative Leukocytes, ur, POC Negative Negative Lot Number [id number] Assessment & Plan Flank pain of unclear etiology Flank pain persistent, non-radiating, worsens when lying down. Urinalysis negative for blood or bacteria, reducing likelihood of kidney stones. Differential includes musculoskeletal pain, but deep nature and lack of response to Tylenol suggest further investigation needed. - Referred to ER for further workup including labs and CT scan. - Provided summary and urinalysis results to ER for review. - Advised to go to [place] for ER visit. Diagnoses and all orders for this visit: Acute left flank pain (Primary) - POCT urinalysis dipstick Disposition Treatment plan including expectations, follow up, and return precautions discussed with patient/parent, verbalizes understanding. Medication dosage, use, and potential adverse reactions discussed with patient/parent. Advised to follow up with PCP if symptoms do not resolve as expected or sooner if condition worsens. Signs/symptoms warranting ER evaluation reviewed. Patient and/or guardian was given an opportunity to ask questions, questions answered. Joy Tran NP O ATTENDANT documented in this encounter Plan of Treatment Not on file documented as of this encounter Procedures Procedure Name Priority Date/Time Associated Diagnosis Comments POCT URINALYSIS DIPSTICK Routine 08/14/2025 8:43 AM BINGO ATTENDANT Acute left flank pain documented in this encounter Results * POCT urinalysis dipstick (08/14/2025 8:43 AM BINGO ATTENDANT) Color, Urine, POC Yellow Clarity, ur, POC Clear Clear Glucose, ur, POC Negative Negative Bilirubin, ur, POC Negative Negative Ketones, ur, POC Negative Negative Specific [place], POC 1.030 1.003 - 1.030 Blood, ur, POC Negative Negative pH, ur, POC 6.0 5.0 - 8.0 Protein, ur, POC Negative Negative Urobilinogen, urine, POC 0.2 0.2 - 1.0 mg/dL Nitrite, ur, POC Negative Negative Leukocytes, ur, POC Negative Negative Lot Number [id number] Urine 08/14/2025 8:43 AM BINGO ATTENDANT Joy Tran NP POINT OF CARE TEST ORDERAB LES Final Result documented in this encounter Visit Diagnoses Diagnosis Acute left flank pain- Primary documented in this encounter Care Teams Candy Vendor Relationship Specialty Start Date End Date Brenda Carmona NP [address] [facility] [address] [place] [address] PCP - General Family Medicine 10/09/24 Amina Gonzalez PA Physician Forensic Chemist Orthopedic Surgery 12/22/21 Siva Boswell MD [address] [place] [address] DR TILLMAN [address] [address] Surgeon Orthopedic Surgery 04/28/22 documented as of this encounter
--- OUTSIDE RECORDS SUMMARY | 2025-08-14 08:15 | XMS_ITS | Encounter Summary ---
Author Organization [facility] Address [address] [place] [address] Care Team Providers Care Slitter Helper Name Role Phone Amina Gonzalez Unavailable [phone] Siva Boswell MD Unavailable [phone] Brenda Carmona NP Primary Care Provider [phone] Reason for Visit * Reason Comments Abdominal Pain Aching pain on left flank since monday - worse at night, hard to sleep, Encounter Details Date Type Department Care Team (Late st Contact Info) Description 08/14/2025 8:15 AM SMASHER HAND Office Visit [facility] at [address] [address] Joy Tran OFFICE SUPPORT ASSISTANT [address] [place] [address] [address] [place] [address] Acute left flank pain (Primary [...] on file Legal Sex Female 12:27 AM SMASHER HAND Gender Identity Not on file Sexual Orientation Not on file documented as of this encounter Last Filed Vital Signs Vital Sign Reading Time Taken Comments Blood Pressure 128/82 08/14/2025 8:11 AM SMASHER HAND Pulse 77 08/14/2025 8:08 AM SMASHER HAND Temperature 36.3 C (97.4 F) 08/14/2025 8:08 AM SMASHER HAND Respiratory Rate 18 08/14/2025 8:08 AM SMASHER HAND Oxygen Saturation 96% 08/14/2025 8:08 AM SMASHER HAND Inhaled Oxygen Concentration - - Weight 123.3 kg (271 lb 12.8 oz) 08/14/2025 8:08 AM SMASHER HAND Height 165.1 cm (5' 5) 08/14/2025 8:08 AM SMASHER HAND Body Mass Index 45.23 08/14/2025 8:08 AM SMASHER HAND documented in this encounter Patient Instructions * Patient Instructions* Joy Tran NP - 08/14/2025 8:15 AM SMASHER HAND 65-year-old female patient presents today with complaints [...] Negative Ketones, ur, POC Negative Negative Specific [place], POC 1.003 - 1.030 1.030 Blood, ur, POC Negative Negative pH, ur, POC 5.0 - 8.0 6.0 Protein, ur, POC Negative Negative Urobilinogen, urine, POC 0.2 - 1.0 mg/dL 0.2 Nitrite, ur, POC Negative Negative Leukocytes, ur, POC Negative Negative Lot Number [id number] HER HAND HER HAND HER HAND documented in this encounter Progress Notes * [...] 1 tablet (112 mcg total) by mouth spiral binder before breakfast, Disp: 90 tablet, Rfl: 3 [...] Negative Ketones, ur, POC Negative Negative Specific [place], POC 1.030 1.003 - 1.030 Blood, ur, POC Negative Negative pH, ur, POC 6.0 5.0 - 8.0 Protein, ur, POC Negative Negative Urobilinogen, urine, POC 0.2 0.2 - 1.0 mg/dL Nitrite, ur, POC Negative Negative Leukocytes, ur, POC Negative Negative Lot Number [id number] Assessment & Plan Flank pain of unclear [...] for review. - Advised to go to [place] for ER visit. Diagnoses and all orders [...] ask questions, questions answered. Joy Tran NP HER HAND documented in this encounter Plan of Treatment Not on file documented as of this encounter Procedures Procedure Name Priority Date/Time Associated Diagnosis Comments POCT URINALYSIS DIPSTICK Routine 08/14/2025 8:43 AM SMASHER HAND Acute left flank pain documented in this encounter Results * POCT urinalysis dipstick (08/14/2025 8:43 AM SMASHER HAND) Color, Urine, POC Yellow Clarity, ur, POC Clear Clear Glucose, ur, POC Negative Negative Bilirubin, ur, POC Negative Negative Ketones, ur, POC Negative Negative Specific [place], POC 1.030 1.003 - 1.030 Blood, ur, POC Negative Negative pH, ur, POC 6.0 5.0 - 8.0 Protein, ur, POC Negative Negative Urobilinogen, urine, POC 0.2 0.2 - 1.0 mg/dL Nitrite, ur, POC Negative Negative Leukocytes, ur, POC Negative Negative Lot Number [id number] Urine 08/14/2025 8:43 AM SMASHER HAND Joy Tran NP POINT OF CARE TEST ORDERAB LES Final Result documented in this encounter Visit Diagnoses Diagnosis Acute left flank pain- Primary documented in this encounter Care Teams Slitter Helper Relationship Specialty Start Date End Date Brenda Carmona NP [address] [facility] [address] [place] [address] PCP - General Family Medicine 10/09/24 Amina Gonzalez PA Physician Trust And Estates Attorney Orthopedic Surgery 12/22/21 Siva Boswell MD [address] [place] [address] DR T[address] [address] Surgeon Orthopedic Surgery 04/28/22 documented as of this encounter
[2025-08-14 09:33] VITALS: BP 168/80; PULSE 93; RESP 15; TEMP 36.4; O2SAT 98
--- OUTSIDE RECORDS SUMMARY | 2025-08-14 10:21 | XMS_ITS | Encounter Summary ---
Author Organization [facility] Address [address] [place] [address] Care Team Providers Care Anatomic Pathology Manager Name Role Phone Lucero Chirinos MD Primary Care Provider [phone] Encounter Details Date Type Department Care Team (Late st Contact Info) Description 11/26/2007 Outpatient Historical [facility] B[place] Jade MD [address] [address] David Thomas MD Department of Radiology [address] [place], [place] [id number] Other Ureteric Obstruction Social History Tobacco Use Types Packs/Day Years Used Date Smoking Tobacco: Never Assessed Comments Unknown Sex and Gender Information Value Date Recorded Sex Assigned at Not on file Legal 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 Gender Identity Not on file Sexual [...] AM CDT Narrative 11/26/2007 4:48 PM CDT [place] [address] [place], [place] [address] Admit Date: 11/26/2007 ARACELI LIM Sex: F Admit Prov: BISMARK JADE Date: 1960 Primary Care Prov: CMRN: [id number] [id number] [facility] Ordering Prov: N/A Accession Number: [id number] Interpretation Right-sided antegrade nephrostogram and nephrostomy catheter [...] Procedure Note David Thomas MD - 11/26/2007 [place] [address] [place], [place] [address] Admit Date: 11/26/2007 ARACELI LIM Sex: F Admit Prov: BISMARK JADE Date: 1960 Primary Care Prov: CMRN: [id number] [id number] IM[facility] Ordering Prov: N/A Interpretation Right-sided [...] obstruction documented in this encounter Care Teams Anatomic Pathology Manager Relationship Specialty Start Date End Date Lucero Chirinos MD PCP - General Family Practice 01/22/15 documented as of this encounter
--- OUTSIDE RECORDS SUMMARY | 2025-08-14 10:21 | XMS_ITS | Encounter Summary ---
Author Organization [facility] Address [address] [place] [address] Phone Care Team Providers Care Java Manager Name Role Phone Unavailable Primary Care Provider Unavailabl e Reason for Visit * Reason Comments Medication Refill Encounter Details Date Type Department Care Team (Late st Contact Info) Description 01/31/2023 Refill [facility] - Family Medicine [facility] [address] [place] [address] Inna Millan MD [address] [place] [address] Medication Refill Social History Tobacco Use Types [...] Total Score: 0 09/14/19 21 4:00 PM POWDER ROOM ATTENDANT documented as of this encounter
--- OUTSIDE RECORDS SUMMARY | 2025-08-14 10:21 | XMS_ITS | Encounter Summary ---
Author Organization [employer] Address [address] [place] [address] Care Team Providers Care Assistant Professor Of Criminal Justice Name Role Phone Lucero Chirinos MD Primary Care Provider [phone] Encounter Details Date Type Department Care Team (Late st Contact Info) Description 10/15/2007 Outpatient Historical [facility] Lteha Jade MD [address] [place] [address] Other Ureteric Obstruction; Status of Other Artificial Opening of Urinary Tract (CMS/HCC); Other Specified Disorder of Bladder Social History Tobacco Use Types Packs/Day Years Used Date Smoking Tobacco: Never Assessed Comments Unknown Sex and Gender Information Value Date Recorded Sex Assigned at Not on file Legal Sex Female 5:30 AM VACUUM WORKER Gender Identity Not on file Sexual Orientation [...] CBC WITH DIFFERENTIAL Routine 11/03/2007 6:10 AM VACUUM WORKER BASIC METABOLIC PANEL Routine 11/03/2007 6:10 AM VACUUM WORKER URINE CULTURE Routine 10/31/2007 9:30 AM VACUUM WORKER documented in this encounter Results * (ABNORMAL) CBC WITH DIFFERENTIAL (11/06/2007 5:43 AM CDT) MCHC 31.8 31.5 - 35.5 % [facility] MCV 85.1 82.0 - 99.0 fL [facility] PLATELETS 199 140 - 350 K/uL [facility] HEMOGLOBIN 11.1(L) 11.8 - 14.8 g/dL [facility] RDW 14.4 11.5 - 14.5 % [facility] WBC 7.7 4.0 - 9.8 K/uL [facility] MCH 27.1(L) 27.2 - 32.6 pg [facility] MPV 11.0 9.3 - 12.4 fL [facility] HEMATOCRIT 34.9(L) 35.5 - 44.0 % [facility] RDW-STDEV 44.8 37.1 - 48.7 fL [facility] RBC 4.10 3.90 - 4.90 M/uL [facility] NEUTROPHILS 62 45 - 70 % [facility] NEUTROPHIL ABSOLUTE 4.73 1.90 - 7.00 K/uL [facility] EOSINOPHILS 4 0 - 7 % [facility] EOSINOPHIL ABSOLUTE 0.31 0.00 - 0.70 K/uL [facility] LYMPHOCYTES 21 16 - 45 % [facility] LYMPHOCYTE ABSOLUTE 1.61 0.70 - 4.50 K/uL [facility] BASOPHILS 0 0 - 2 % [facility] BASOPHILS ABSOLUTE 0.02 0.00 - 0.20 K/uL [facility] MONOCYTES 13 3 - 13 % [facility] MONOCYTE ABSOLUTE 1.00 0.10 - 1.30 K/uL [facility] Blood specimen (specimen) 11/06/2007 5:43 AM CDT 11/06/2007 6:57 AM CDT Letha Jade MD HEMATOLOGY ORDERABLES Edited INTERFACE SYSTEM Refer to clinic/hospital department [facility] [address] [place] [address] * (ABNORMAL) BASIC METABOLIC PANEL (11/06/2007 5:43 AM CDT) POTASSIUM 3.6 3.5 - 4.9 mmol/L [facility] CO2 27 22 - 30 mmol/L [facility] SODIUM 136 135 - 145 mmol/L [facility] BUN 7 6 - 20 mg/dL [facility] CALCIUM 8.6 8.4 - 10.2 mg/dL [facility] GLUCOSE 119(H) 65 - 99 mg/dL [facility] CHLORIDE 102 96 - 108 mmol/L [facility] CREATININE 0.69 0.51 - 0.95 mg/dL [facility] GFR, >60 >=60 mL/min/1. 7 sq meter [facility] GFR >60 >=60 mL/min/1. 7 sq meter [facility] Comment: Estimated GFR rate interpretative information for both Americans and non- Americans is available on the [facility] Intranet at: [email or web address] Select: Lab Policies and Procedures Select: Reference Ranges - GFR Blood specimen (specimen) 11/06/2007 5:43 AM CDT 11/06/2007 6:57 AM CDT Letha Jade MD CHEMISTRY ORDERABLES Edited [facility] [address] [place] [address] * (ABNORMAL) BASIC METABOLIC PANEL (11/05/2007 6:10 AM CDT) CHLORIDE 100 96 - 108 mmol/L [facility] GLUCOSE 117(H) 65 - 99 mg/dL [facility] SODIUM 136 135 - 145 mmol/L [facility] CALCIUM 8.2(L) 8.4 - 10.2 mg/dL [facility] CO2 27 22 - 30 mmol/L [facility] CREATININE 0.77 0.51 - 0.95 mg/dL [facility] POTASSIUM 3.9 3.5 - 4.9 mmol/L [facility] BUN 10 6 - 20 mg/dL [facility] GFR, >60 >=60 mL/min/1. 7 sq meter [facility] GFR >60 >=60 mL/min/1. 7 sq meter [facility] Comment: ansiEstimated GFR rate interpretative information for both Americans and non- Americans is available on the [facility] Intranet at: [email or web address] Select: Lab Policies and Procedures Select: Reference Ranges - GFR Blood specimen (specimen) 11/05/2007 6:10 AM CDT 11/05/2007 6:33 AM CDT Letha Jade MD CHEMISTRY ORDERABLES Edited [facility] [address] [place] [address] * (ABNORMAL) BASIC METABOLIC PANEL (11/04/2007 6:45 AM CDT) CALCIUM 8.3(L) 8.4 - 10.2 mg/dL [facility] CO2 30 22 - 30 mmol/L [facility] CREATININE 0.77 0.51 - 0.95 mg/dL [facility] POTASSIUM 3.6 3.5 - 4.9 mmol/L [facility] BUN 14 6 - 20 mg/dL [facility] CHLORIDE 103 96 - 108 mmol/L [facility] GLUCOSE 93 65 - 99 mg/dL [facility] SODIUM 140 135 - 145 mmol/L [facility] GFR, >60 >=60 mL/min/1. 7 sq meter [facility] GFR >60 >=60 mL/min/1. 7 sq meter [facility] Comment: Estimated GFR rate interpretative information for both Americans and non- Americans is available on the [facility] Intranet at: [email or web address] Select: Lab Policies and Procedures Select: Reference Ranges - GFR Blood specimen (specimen) 11/04/2007 6:45 AM CDT 11/04/2007 7:26 AM CDT Letha Jade MD CHEMISTRY ORDERABLES Edited [facility] [address] [place] [address] * (ABNORMAL) CBC WITH DIFFERENTIAL (11/04/2007 6:45 AM CDT) HEMATOCRIT 33.9(L) 35.5 - 44.0 % [facility] RDW-STDEV 45.6 37.1 - 48.7 fL [facility] RBC 3.95 3.90 - 4.90 M/uL [facility] MCHC 30.7(L) 31.5 - 35.5 % [facility] MCV 85.8 82.0 - 99.0 fL [facility] PLATELETS 203 140 - 350 K/uL [facility] HEMOGLOBIN 10.4(L) 11.8 - 14.8 g/dL [facility] RDW 14.6(H) 11.5 - 14.5 % [facility] WBC 9.8 4.0 - 9.8 K/uL [facility] MCH 26.3(L) 27.2 - 32.6 pg [facility] MPV 11.3 9.3 - 12.4 fL [facility] MONOCYTES 8 3 - 13 % [facility] MONOCYTE ABSOLUTE 0.81 0.10 - 1.30 K/uL [facility] NEUTROPHILS 71(H) 45 - 70 % [facility] NEUTROPHIL ABSOLUTE 6.93 1.90 - 7.00 K/uL [facility] EOSINOPHILS 0 0 - 7 % [facility] EOSINOPHIL ABSOLUTE 0.02 0.00 - 0.70 K/uL [facility] LYMPHOCYTES 21 16 - 45 % [facility] LYMPHOCYTE ABSOLUTE 2.02 0.70 - 4.50 K/uL [facility] BASOPHILS 0 0 - 2 % [facility] BASOPHILS ABSOLUTE 0.03 0.00 - 0.20 K/uL [facility] Blood specimen (specimen) 11/04/2007 6:45 AM CDT 11/04/2007 7:26 AM CDT us Letha Jade MD HEMATOLOGY ORDERABLES Edited INTERFACE SYSTEM Refer to clinic/hospital department [facility] [address] [place] [address] * (ABNORMAL) BASIC METABOLIC PANEL (11/03/2007 6:10 AM VACUUM WORKER) BUN 13 6 - 20 mg/dL [facility] CHLORIDE 107 96 - 108 mmol/L [facility] GLUCOSE 148(H) 65 - 99 mg/dL [facility] SODIUM 140 135 - 145 mmol/L [facility] CALCIUM 8.1(L) 8.4 - 10.2 mg/dL [facility] CO2 25 22 - 30 mmol/L [facility] CREATININE 0.76 0.51 - 0.95 mg/dL [facility] POTASSIUM 4.3 3.5 - 4.9 mmol/L [facility] GFR, >60 >=60 mL/min/1. 7 sq meter [facility] GFR >60 >=60 mL/min/1. 7 sq meter [facility] Comment: Estimated GFR rate interpretative information for both Americans and non- Americans is available on the [facility] Intranet at: [email or web address] Select: Lab Policies and Procedures Select: Reference Ranges - GFR Blood specimen (specimen) 11/03/2007 6:10 AM VACUUM WORKER 11/03/2007 6:24 AM VACUUM WORKER us Letha Jade MD CHEMISTRY ORDERABLES Edited [facility] [address] [place] [address] * (ABNORMAL) CBC WITH DIFFERENTIAL (11/03/2007 6:10 AM VACUUM WORKER) MCV 83.9 82.0 - 99.0 fL [facility] PLATELETS 214 140 - 350 K/uL [facility] HEMOGLOBIN 11.3(L) 11.8 - 14.8 g/dL [facility] RDW 14.6(H) 11.5 - 14.5 % [facility] WBC 14.2(H) 4.0 - 9.8 K/uL [facility] MCH 26.4(L) 27.2 - 32.6 pg [facility] MPV 10.9 9.3 - 12.4 fL [facility] HEMATOCRIT 35.9 35.5 - 44.0 % [facility] RDW-STDEV 44.2 37.1 - 48.7 fL [facility] RBC 4.28 3.90 - 4.90 M/uL [facility] MCHC 31.5 31.5 - 35.5 % [facility] EOSINOPHILS 0 0 - 7 % [facility] EOSINOPHIL ABSOLUTE 0.00 0.00 - 0.70 K/uL [facility] LYMPHOCYTES 8(L) 16 - 45 % [facility] LYMPHOCYTE ABSOLUTE 1.06 0.70 - 4.50 K/uL [facility] BASOPHILS 0 0 - 2 % [facility] BASOPHILS ABSOLUTE 0.02 0.00 - 0.20 K/uL [facility] MONOCYTES 5 3 - 13 % [facility] MONOCYTE ABSOLUTE 0.77 0.10 - 1.30 K/uL [facility] NEUTROPHILS 87(H) 45 - 70 % [facility] NEUTROPHIL ABSOLUTE 12.32(H) 1.90 - 7.00 K/uL [facility] Blood specimen (specimen) 11/03/2007 6:10 AM VACUUM WORKER 11/03/2007 6:24 AM VACUUM WORKER us Letha Jade MD HEMATOLOGY ORDERABLES Edited Performing Organization Address City/[facility]/ZIP Co de Phone Number INTERFACE SYSTEM Refer to clinic/hospital department [facility] [address] [place] [address] * URINE CULTURE (10/31/2007 9:30 AM VACUUM WORKER) PRELIMINARY REPORT Pending INTERFACE SYSTEM FINAL REPORT No growth 24 hours INTERFACE SYSTEM 10/31/2007 9:30 AM VACUUM WORKER 10/31/2007 11:21 AM VACUUM WORKER Letha Jade MD MICROBIOLOGY - GENERAL ORDER ROSARIO Final Result Performing Organization Address City/[facility] Phone Number INTERFACE SYSTEM Refer to clinic/hospital department documented in this encounter Visit Diagnoses Diagnosis Other ureteric obstruction Status of other artificial opening of urinary tract Other specified disorder of bladder documented in this encounter Care Teams Assistant Professor Of Criminal Justice Relationship Specialty Start Date End Date Lucero Chirinos MD PCP - General Family Practice 01/22/15 documented as of this encounter
--- OUTSIDE RECORDS SUMMARY | 2025-08-14 10:21 | XMS_ITS | Encounter Summary ---
Author Organization [employer] Address [address] [place] [address] Care Team Providers Care Lifter Name Role Phone Lucero Chirinos MD Primary Care Provider [phone] Encounter Details Date Type Department Care Team (Late st Contact Info) Description 11/19/2007 Outpatient Historical [facility] [place] Jade MD [address] [facility] [address] [place] [address] [place] [address] [facility] [address] [place], [place] [id number] Other Ureteric Obstruction Social History Tobacco Use Types Packs/Day Years Used Date Smoking Tobacco: Never Assessed Comments Unknown Sex and Gender Information Value Date Recorded Sex Assigned at Not on file 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 Gender Identity Not on file Sexual Orientation [...] PM CDT Narrative 11/22/2007 11:28 AM CDT [facility] [address] [place], [place] [address] Admit Date: 11/19/2007 ARACELI LIM Sex: F Admit Prov: BISMARK JADE Date: 1960 Primary Care Prov: CMRN: [id number] [facility]: [facility]: [phone] IMAGING SERVICES Ordering Prov: N/A Accession Number: [id number] Interpretation Cystogram 11/19/2007 History: 593.4, ureteral obstruction Findings: The orthopedic mechanic radiograph demonstrates a nephrostomy tube in place [...] Procedure Note Jhonatan Stephen MD - 11/22/[address] [place] [address] [place], [place] [address] Admit Date: 11/19/2007 ARACELI LIM Sex: F Admit Prov: BISMARK JADE Date: 1960 Primary Care Prov: CMRN: [id number] [facility]: [facility]: [phone] IMAGING SERVICES Ordering Prov: N/A Interpretation Cystogram 11/19/2007 History: 593.4, ureteral obstruction Findings: The orthopedic mechanic radiograph demonstrates a nephrostomy tube inplace on [...] obstruction documented in this encounter Care Teams Lifter Relationship Specialty Start Date End Date Lucero Chirinos MD PCP - General Family Practice 01/22/15 documented as of this encounter
--- OUTSIDE RECORDS SUMMARY | 2025-08-14 10:21 | XMS_ITS | Encounter Summary ---
Author Organization [facility] Address [address] [place] [address] Phone Care Team Providers Care Sash Finisher Name Role Phone Lucero Chirinos MD Primary Care Provider Reason for Visit * Reason Comments Medication Refill Encounter Details Date Type Department Care Team (Late st Contact Info) Description 01/03/2021 Refill [facility] - Primary Care - [place] [address] [place] [address] Lucero Chirinos MD [address] [place] [address] Medication Refill Social History Tobacco [...] Outpatient Visits 3 months ago Essential hypertension [facility] Lucero Chirinos MD 10 months ago Physical exam, annual (Adult) [facility] Lucero Chirinos MD 1 year ago Essential hypertension [facility] Lucero Chirinos MD 2 years ago Physical exam, annual (Adult) [facility] Lucero Chirinos MD 2 years ago Essential hypertension [facility] Lucero Chirinos MD Upcoming Appointments Future Appointments In 1 week Lucero Chirinos MD [facility] - Recent and Past Visits Recent Visits Date Type Provider Dept 09/14/20 Office Visit Lucero Chirinos MD [facility] 03/10/20 Office Visit uLcero Chirinos MD [facility] Showing recent visits within past 460 days with a meds authorizing provider and meeting all other requirements Future Appointments Date Type Provider Dept 01/12/21 Appointment Lucero Chirinos MD [facility] Showing future appointments within next 90 days with a meds authorizing provider and meeting all other requirements documented in this encounter Plan of Treatment Not on file documented as of this encounter Visit Diagnoses Diagnosis Anxiety Anxiety state, unspecified documented in this encounter Additional Health Concerns Assessment Noted Time PHQ-9 Depression Total Score: 0 09/14/19 21 4:00 PM ROLLED MATERIALS WORKER documented as of this encounter Care Teams Sash Finisher Relationship Specialty Start Date End Date Lucero Chirinos MD PCP - General Family Medicine 05/26/15 12/09/22 documented as of this encounter
--- OUTSIDE RECORDS SUMMARY | 2025-08-14 10:21 | XMS_ITS | Encounter Summary ---
Author Organization [facility] Address [address] [place] [address] Phone Care Team Providers Care Junior Net Developer Name Role Phone Unavailable Primary Care Provider Unavailabl e Reason for Visit * Reason Comments Medication Refill Encounter Details Date Type Department Care Team (Late st Contact Info) Description 02/03/2023 Refill [facility] - Family Medicine [facility] [address] [place] [address] Inna Millan MD [address] [place] [address] Medication Refill Social History Tobacco Use Types [...] Score: 0 09/14/19 21 4:00 PM SENIOR UI DEVELOPER documented as of this encounter
--- OUTSIDE RECORDS SUMMARY | 2025-08-14 10:21 | XMS_ITS | Encounter Summary ---
Author Organization [facility] Address [address] [place] [address] Phone Care Team Providers Care Architectural Superintendent Name Role Phone Unavailable Primary Care Provider Unavailabl e Reason for Visit * Reason Comments Medication Refill Encounter Details Date Type Department Care Team (Late st Contact Info) Description 01/19/2023 Refill [facility] - Family Medicine [facility] [address] [place] [address] Lucero Chirinos MD [address] [place] [address] Medication Refill Social History Tobacco Use Types [...] Total Score: 0 09/14/19 21 4:00 PM STRIKE PLANNING APPLICATIONS documented as of this encounter
--- OUTSIDE RECORDS SUMMARY | 2025-08-14 10:21 | XMS_ITS | Encounter Summary ---
Author Organization [employer] Address 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
--- OUTSIDE RECORDS SUMMARY | 2025-08-14 10:21 | XMS_ITS | Encounter Summary ---
Author Organization [facility] Address [address] [place] [address] Phone Care Team Providers Care Parlor Maid Name Role Phone Lucero Chirinos MD Primary Care Provider Reason for Visit * Reason Comments Medication Refill Encounter Details Date Type Department Care Team (Late st Contact Info) Description 09/29/2020 Refill [facility] - Primary Care - Amanda [address] [place] [address] Lucero Chirinos MD [address] [place] [address] Medication Refill Social History Tobacco [...] COVID-19? No / Unsure 09/14/2020 3:59 PM PROBLEM MANAGER documented as of this encounter Miscellaneous Notes * Telephone Encounter - Kalli Morales RN - 09/29/2020 9:40 AM CST Per nursing [...] Outpatient Visits 2 weeks ago Essential hypertension [facility] Lucero Chirinos MD 6 months ago Physical exam, annual (Adult) [facility] Lucero Chirinos MD 1 year ago Essential hypertension [facility] Lucero Chirinos MD 1 year ago Physical exam, annual (Adult) [facility] Lucero Chirinos MD 2 years ago Essential hypertension [facility] Lucero Chirinos MD Upcoming Appointments Future Appointments In 3 months Lucero Chirinos MD [facility] - Recent and Past Visits Recent Visits Date Type Provider Dept 09/14/20 Office Visit Lucero Chirinos MD [facility] 03/10/20 Office Visit Lucero Chirinos MD [facility] 07/22/19 Office Visit Lucero Chirinos MD [facility] Showing recent visits within past 460 [...] Outpatient Visits 2 weeks ago Essential hypertension [facility] Lucero Chirinos MD 6 months ago Physical exam, annual (Adult) [facility] Lucero Chirinos MD 1 year ago Essential hypertension [facility] Lucero Chirinos MD 1 year ago Physical exam, annual (Adult) [facility] Lucero Chirinos MD 2 years ago Essential hypertension [facility] Lucero Chirinos MD Upcoming Appointments Future Appointments In 3 months Lucero Chirinos MD [facility] - Recent and Past Visits Recent Visits Date Type Provider Dept 09/14/20 Office Visit Lucero Chirinos MD [facility] 03/10/20 Office Visit Lucero Chirinos MD [facility] 07/22/19 Office Visit Lucero Chirinos MD [facility] Showing recent visits within past 460 [...] Outpatient Visits 2 weeks ago Essential hypertension [facility] Lucero Chirinos MD 6 months ago Physical exam, annual (Adult) [facility] Lucero Chirinos MD 1 year ago Essential hypertension [facility] Lucero Chirinos MD 1 year ago Physical exam, annual (Adult) [facility] Lucero Chirinos MD 2 years ago [facility] Upcoming Appointments Future Appointments In 3 months Lucero Chirinos MD [facility] - Recent and Past Visits Recent Visits Date Type Provider Dept 09/14/20 Office Visit Lucero Chirinos MD [facility] 03/10/20 Office Visit Lucero Chirinos MD [facility] 07/22/19 Office Visit Lucero Chirinos MD [facility] Showing recent visits within past 460 days with a meds authorizing provider and meeting all other requirements Future Appointments No visits were found meeting these conditions. Showing future appointments within next 90 days with a meds authorizing provider and meeting all other requirements LEM MANAGER documented in this encounter Plan of Treatment Not on file documented as of this encounter Visit Diagnoses Diagnosis Essential hypertension Unspecified essential hypertension documented in this encounter Additional Health Concerns Assessment Noted Time PHQ-9 Depression Total Score: 0 09/14/19 4:00 PM PROBLEM MANAGER documented as of this encounter Care Teams Parlor Maid Relationship Specialty Start Date End Date Lucero Chirinos MD PCP - General Family Medicine 05/26/15 12/09/22 documented as of this encounter
--- OUTSIDE RECORDS SUMMARY | 2025-08-14 10:21 | XMS_ITS | Encounter Summary ---
Author Organization [facility] Address [address] [place] [address] Phone Care Team Providers Care Procurement Consultant Name Role Phone Unavailable Primary Care Provider Unavailabl e Reason for Visit * Reason Comments Medication Refill Encounter Details Date Type Department Care Team (Late st Contact Info) Description 01/13/2023 Refill [facility] - Family Medicine [facility] [address] [place] [address] Inna Millan MD [address] [place] [address] Medication Refill Social History Tobacco Use Types [...] Total Score: 0 09/14/19 21 4:00 PM VEGETABLE FARM WORKER documented as of this encounter
--- OUTSIDE RECORDS SUMMARY | 2025-08-14 10:21 | XMS_ITS | Encounter Summary ---
Author Organization [employer] Address [address] [place] [address] Care Team Providers Care Dryland Farmer Name Role Phone Lucero Chirinos MD Primary Care Provider [phone] Encounter Details Date Type Department Care Team (Late st Contact Info) Description 10/04/2007 Outpatient Historical [facility] Bismark Jade MD [address] [place] [address] Unspecified Urethral Stricture Social History Tobacco Use Types Packs/Day Years Used Date Smoking Tobacco: Never Assessed Comments Unknown Sex and Gender Information Value Date Recorded Sex Assigned at Not on file Legal Sex Female 5:30 AM SMOKE INSPECTOR Gender Identity Not on file Sexual Orientation Not on file documented as of this encounter Plan of Treatment Not on file documented as of this encounter Procedures Procedure Name Priority Date/Time Associated Diagnosis Comments XR RETROGRADE PYELOGRM W WO KUB Routine 10/15/2007 7:20 AM SMOKE INSPECTOR HEMOGLOBIN AND HEMATOCRIT Routine 10/05/2007 8:51 AM SMOKE INSPECTOR documented in this encounter Results * XR RETROGRADE PYELOGRM W WO KUB (10/15/2007 7:20 AM SMOKE INSPECTOR) Anatomical Region Laterality Modality Abdomen Other 10/15/2007 7:20 AM SMOKE INSPECTOR Narrative 10/15/2007 5:36 PM SMOKE INSPECTOR [facility] [address] [place], [place] [address] Admit Date: 10/15/2007 ARACELI [place] Sex: F Admit Prov: BISMARK JADE Date: 1960 Primary Care Prov: PCP, UNKNOWN CMRN: [id number] [facility]: [id number] IMAGING SERVICES Ordering Prov: N/A Accession Number: [id number] Interpretation EXAMINATION: C-ARM FLUOROSCOPY 10/15/2007 Clinical History: Pain. Findings: Fluoroscopy was provided to assist retrograde pyelogram. Multiple spot images were obtained which demonstrate opacification of the right collecting system. Impression: Fluoroscopy provided to assist procedure. . Dictated by: Wilberto WHITMORE 10/15/2007 17:19 Electronically signed by: Wilberto WHITMORE 10/15/2007 17:36 Transcribed: 10/15/2007 17:31 SJ Procedure Note Provider, Historical - 10/15/2007 [facility] [address] [place], [place] [address] Admit Date: 10/15/2007 ARACELI LIM Sex: F Admit Prov: BISMARK JADE Date: 1960 Primary Care Prov: PCP, UNKNOWN CMRN: [id number] Room: [facility] SSN: [id number] IMAGING SERVICES Ordering Prov: N/A Interpretation EXAMINATION: C-ARM FLUOROSCOPY 10/15/2007 Clinical History: Pain. Findings: Fluoroscopy was provided to assist retrograde pyelogram. Multiple spot images were obtained which demonstrate opacification ofthe right collecting system. Impression: Fluoroscopy provided to assist procedure. . Dictated by: Wilberto WHITMORE 10/15/2007 17:19 Electronically signed by: Wilberto WHITMORE 10/15/2007 17:36 Transcribed: 10/15/2007 17:31 SJ us Bismark Jade MD DIAGNOSTIC IMAGING ORDERABLE S Final Result * HEMOGLOBIN AND HEMATOCRIT (10/05/2007 8:51 AM SMOKE INSPECTOR) HEMOGLOBIN 12.6 11.8 - 14.8 g/dL INTERFACE SYSTEM HEMATOCRIT 39.4 35.5 - 44.0 % INTERFACE SYSTEM 10/05/2007 8:51 AM SMOKE INSPECTOR Bismark Jade MD HEMATOLOGY ORDERABLES Final Result INTERFACE SYSTEM Refer to clinic/hospital department documented in this encounter Visit Diagnoses Diagnosis Urethral stricture unspecified Urethral stricture, unspecified documented in this encounter Care Teams Dryland Farmer Relationship Specialty Start Date End Date Lucero Chirinos MD PCP - General Family Practice 01/22/15 documented as of this encounter
--- OUTSIDE RECORDS SUMMARY | 2025-08-14 10:21 | XMS_ITS | Encounter Summary ---
Author Organization [employer] Address [address] [place] [address] Care Team Providers Care Leather Goods Assembler Name Role Phone Lucero Chirinos MD Primary Care Provider [phone] Encounter Details Date Type Department Care Team (Late st Contact Info) Description 10/05/2007 Outpatient Historical [facility] ([facility]) [address] [place] [phone] Solomon Cool MD NO ADDRESS ON FILE Social History Tobacco Use Types Packs/Day Years Used Date Smoking Tobacco: Never Assessed Comments Unknown Sex and Gender Information Value Date Recorded Sex Assigned at Not on file Legal Sex Female 5:30 AM BI MANAGER Gender Identity Not on file Sexual Orientation Not on file documented as of this encounter Plan of Treatment Not on file documented as of this encounter Visit Diagnoses Not on filedocumented in this encounter Care Teams Leather Goods Assembler Relationship Specialty Start Date End Date Lucero Chirinos MD PCP - General Family Practice 01/22/15 documented as of this encounter
[2025-08-14 10:22] LABS: Hematocrit 46.2 % (37.0-47.0); Hemoglobin 14.5 g/dL (12.0-15.0); Immature Granulocyte Percent A 0.3 % (0-0.5); Lymphocytes Absolute Auto 2.16 K/mm3 (0.9-3.2); Mean Corpuscular HGB Conc 31.4 g/dl (32-36); Mean Corpuscular Hemoglobin 27.2 pg (26-34); Mean Corpuscular Volume 86.7 fl (80-100); Nucleated Red Blood Cells Absolute Auto 0.000 K/mm3 (0.0-0.012); Nucleated Red Blood Cells Perc 0.0 % (0.0-0.2); Platelet Count Result 424 k/mm3 (150-375); Red Blood Count 5.33 M/mm3 (4.2-5.4); White Blood Count 7.5 K/mm3 (4.5-10.0)
--- OUTSIDE RECORDS SUMMARY | 2025-08-14 10:22 | XMS_ITS | Encounter Summary ---
Author Organization [facility] Address [address] [place] [address] Phone Care Team Providers Care Editorial Director Name Role Phone Lucero Chirinos MD Primary Care Provider [phone] Reason for Visit * Reason Comments Medication Refill Encounter Details Date Type Department Care Team (Late st Contact Info) Description 04/12/2021 Refill [facility] [place] [address] [place] [address] Lucero Chirinos MD [address] [place] [address] Medication Refill Social History Tobacco [...] Dept 03/26/21 Office Visit Lucero Chirinos MD [facility] 02/22/21 Office Visit Chrissy Melissa APN, QUALITY SYSTEMS MANAGER [facility] 09/14/20 Office Visit Lucero Chirinos MD [facility] Showing recent visits within past 365 [...] Dept 03/26/21 Office Visit Lucero Chirinos MD [facility] [place] [facility] 02/22/21 Office Visit Chrissy Melissa APN, CANDICE [facility] [place] [facility] 09/14/20 Office Visit Lucero Chirinos MD [facility] [place] [facility] Showing recent visits within past 365 [...] Dept 03/26/21 Office Visit Lucero Chirinos MD [facility] [place] [facility] 02/22/21 Office Visit Chrissy Melissa APN, CANDICE [facility] [place] [facility] 09/14/20 Office Visit Lucero Chirinos MD [facility] [place] [facility] Showing recent visits within past 365 [...] Total Score: 0 09/14/19 21 4:00 PM REPAIRER CONTROLLER TESTER documented as of this encounter Care Teams Editorial Director Relationship Specialty Start Date End Date Lucero Chirinos MD PCP - General Family Medicine 05/26/15 12/09/22 documented as of this encounter
--- OUTSIDE RECORDS SUMMARY | 2025-08-14 10:22 | XMS_ITS | Encounter Summary ---
Author Organization [employer] Address [address] [place] [address] Care Team Providers Care Video Game Engineer Name Role Phone Lucero Chirinos MD Primary Care Provider [phone] Encounter Details Date Type Department Care Team (Late st Contact Info) Description 08/01/2007 Outpatient Historical [facility] Letha Jade MD [address] [place] [address] Hydronephrosis Social History Tobacco Use Types Packs/Day Years Used Date Smoking Tobacco: Never Assessed Comments Unknown Sex and Gender Information Value Date Recorded Sex Assigned at Not on file Legal Sex Female 5:30 AM NATIONAL FACILITIES MANAGER Gender Identity Not on file Sexual Orientation Not on file documented as of this encounter Plan of Treatment Not on file documented as of this encounter Visit Diagnoses Diagnosis Hydronephrosis documented in this encounter Care Teams Video Game Engineer Relationship Specialty Start Date End Date Lucero Chirinos MD PCP - General Family Practice 01/22/15 documented as of this encounter
--- OUTSIDE RECORDS SUMMARY | 2025-08-14 10:22 | XMS_ITS | Encounter Summary ---
Author Organization [facility] Address [address] [place] [address] Care Team Providers Care Gear Tester Name Role Phone Lucero Chirinos MD Primary Care Provider [phone] Encounter Details Date Type Department Care Team (Late st Contact Info) Description 09/28/1998 Outpatient Historical [facility] [address] [address] Joleen Borges MD NO ADDRESS ON FILE Social History Tobacco Use Types Packs/Day Years Used Date Smoking Tobacco: Never Assessed Comments Unknown Sex and Gender Information Value Date Recorded Sex Assigned at Not on file Legal Sex Female 5:30 AM CREDIT COLLECTIONS REP Gender Identity Not on file Sexual Orientation Not on file documented as of this encounter Plan of Treatment Not on file documented as of this encounter Visit Diagnoses Not on filedocumented in this encounter Care Teams Gear Tester Relationship Specialty Start Date End Date Lucero Chirinos MD PCP - General Family Practice 01/22/15 documented as of this encounter
--- OUTSIDE RECORDS SUMMARY | 2025-08-14 10:22 | XMS_ITS | Encounter Summary ---
Author Organization [facility] Address [address] [place] [address] Phone Care Team Providers Care Forming Machine Tender Name Role Phone Lucero Chirinos MD Primary Care Provider [phone] Reason for Visit * Reason Comments Medication Refill Encounter Details Date Type Department Care Team (Late st Contact Info) Description 10/14/2021 [facility] [place] [address] [place] [address] Lucero Chirinos MD [address] [place] [address] Medication Refill Social History Tobacco [...] Ana Ulrich RN - 10/14/2021 10:42 AM PROSPECTING DRILLER HELPER Medication failed the protocol, provider to review [...] Dept 03/26/21 Office Visit Lucero Chirinos MD [facility] [address] 02/22/21 Office Visit Chrissy Melissa APRN, CLOTHING MAN [facility] [address] [facility] Showing recent visits within past 365 [...] Dept 03/26/21 Office Visit Lucero Chirinos MD [facility] [address] 02/22/21 Office Visit Chrissy Melissa APRN, CLOTHING MAN [facility] [address] Showing recent visits within past 365 [...] Range Status 03/22/2021 94.1 <130 mg/dL Final PECTING DRILLER HELPER documented in this encounter Plan of Treatment Not on file documented as of this encounter Visit Diagnoses Diagnosis Acquired hypothyroidism Unspecified hypothyroidism documented in this encounter Additional Health Concerns Assessment Noted Time PHQ-9 Depression Total Score: 0 09/14/19 21 4:00 PM PROSPECTING DRILLER HELPER documented as of this encounter Care Teams Forming Machine Tender Relationship Specialty Start Date End Date Lucero Chirinos MD PCP - General Family Medicine 05/26/15 12/09/22 documented as of this encounter
--- OUTSIDE RECORDS SUMMARY | 2025-08-14 10:22 | XMS_ITS | Encounter Summary ---
Author Organization [employer] [facility] Address [address] [place] [address] Care Team Providers Care Residential Solar Sales Consultant Name Role Phone Lucero Chirinos MD Primary Care Provider [phone] Reason for Visit * Reason Comments Medication Refill Encounter Details Date Type Department Care Team (Late st Contact Info) Description 01/06/2016 Refill [facility] [address] [address] Liya Ring MD NO ADDRESS ON FILE Social History Tobacco Use Types Packs/Day Years Used Date Smoking Tobacco: Never Alcohol Use Standard Drinks/Week Comments Yes 0 (1 standard drink = 0.6 oz pur e alcohol) Rarely Comments No Sex and Gender Information Value Date Recorded Sex Assigned at Not on file Legal Sex Female 5:30 AM STONER OUT Gender Identity Not on file Sexual Orientation Not on file documented as of this encounter Plan of Treatment Not on file documented as of this encounter Visit Diagnoses Not on filedocumented in this encounter Care Teams Residential Solar Sales Consultant Relationship Specialty Start Date End Date Lucero Chirinos MD PCP - General Family Practice 01/22/15 documented as of this encounter
--- OUTSIDE RECORDS SUMMARY | 2025-08-14 10:22 | XMS_ITS | Encounter Summary ---
Author Organization [employer] Address [address] [place] [address] Care Team Providers Care Regional Coordinator Name Role Phone Lucero Chirinos MD Primary Care Provider [phone] Encounter Details Date Type Department Care Team (Late st Contact Info) Description 08/09/2007 Outpatient Historical [facility] Letha Jade MD [address] [address] Meli Thomas MD Department of Radiology [address] [place], [place] [id number] Hydronephrosis; Other Ureteric Obstruction Social History Tobacco Use Types Packs/Day Years Used Date Smoking Tobacco: Never Assessed Comments Unknown Sex and Gender Information Value Date Recorded Sex Assigned at Not on file Legal Sex Female 5:30 AM COUTURE ALTERATIONS DRESSMAKER Gender Identity Not on file Sexual Orientation Not on file documented as of this encounter Plan of Treatment Not on file documented as of this encounter Procedures Procedure Name Priority Date/Time Associated Diagnosis Comments PT AND APTT Routine 08/10/2007 11:41 AM COUTURE ALTERATIONS DRESSMAKER PLATELET COUNT Routine 08/10/2007 11:41 AM COUTURE ALTERATIONS DRESSMAKER BASIC METABOLIC PANEL Routine 08/10/2007 11:41 AM COUTURE ALTERATIONS DRESSMAKER documented in this encounter Results * (ABNORMAL) BASIC METABOLIC PANEL (08/10/2007 11:41 AM COUTURE ALTERATIONS DRESSMAKER) GLUCOSE 106(H) 65 - 99 mg/dL INTERFACE [...] and non- Americans is available on the [facility] Intranet at: [email or web address] Select: Lab Policies and Procedures Select: Reference Ranges - GFR 08/10/2007 11:4 1 AM COUTURE ALTERATIONS DRESSMAKER Letha Jade MD CHEMISTRY ORDERABLES Edited Performing Organization Address [facility] de Phone Number INTERFACE SYSTEM Refer to clinic/hospital department * PLATELET COUNT (08/10/2007 11:41 AM COUTURE ALTERATIONS DRESSMAKER) PLATELETS 339 140 - 350 K/uL INTERFACE SYSTEM MPV 10.7 9.3 - 12.4 fL INTERFACE SYSTEM 08/10/2007 11:4 1 AM COUTURE ALTERATIONS DRESSMAKER Letha Jade MD HEMATOLOGY ORDERABLES Edited Performing Organization Address [facility] Co de Phone Number INTERFACE SYSTEM Refer to clinic/hospital department * (ABNORMAL) PT AND APTT (08/10/2007 11:41 AM COUTURE ALTERATIONS DRESSMAKER) PROTIME 13.0 12.7 - 15.1 Seconds INTERFACE SYSTEM INR 1.0 0.9 - 1.1 INTERFACE SYSTEM Comment: INR Therapeutic Range: Adult: 2.0 - 3.0 for pulmonary embolism or prophylaxis against venous thrombosis or systemic embolization. 2.0 - 3.0 for patients with tissue heart valves. 2.5 - 3.5 for patients with mechanical heart valves or post UT. Pediatric (12 years and under): 1.5 - [...] by repeat analysis. 08/10/2007 11:4 1 AM COUTURE ALTERATIONS DRESSMAKER Letha Jade MD HEMATOLOGY ORDERABLES Edited INTERFACE SYSTEM Refer to clinic/hospital department documented in this encounter Visit Diagnoses Diagnosis Hydronephrosis Other ureteric obstruction documented in this encounter Care Teams Regional Coordinator Relationship Specialty Start Date End Date Lucero Chirinos MD PCP - General Family Practice 01/22/15 documented as of this encounter
--- OUTSIDE RECORDS SUMMARY | 2025-08-14 10:22 | XMS_ITS | Encounter Summary ---
Author Organization [facility] Address [address] [place] [address] Phone Care Team Providers Care Graphics Production Specialist Name Role Phone Lucero Chirinos MD Primary Care Provider Reason for Visit * Reason Comments Medication Refill Encounter Details Date Type Department Care Team (Late st Contact Info) Description 2021 Refill [facility] [place] [address] [place] [address] Lucero Chirinos MD [address] [place] [address] Medication Refill Social History Tobacco [...] Dept 03/26/21 Office Visit Lucero Chirinos MD [facility] 02/22/21 Office Visit Chrissy Melissa APN, IT INFRASTRUCTURE SPECIALIST [facility] 09/14/20 Office Visit Lucero Chirinos MD [facility] Showing recent visits within past 365 days [...] Outpatient Visits 3 weeks ago Essential hypertension [facility] Lucero Chirinos MD 1 month ago Bloody stools [facility] Chrissy Melissa APN, IT INFRASTRUCTURE SPECIALIST 7 months ago Essential hypertension [facility] Lucero Chirinos MD 1 year ago Physical exam, annual (Adult) [facility] Lucero Chirinos MD 1 year ago Essential hypertension [facility] Lucero Chirinos MD Upcoming Appointments Future Appointments In 5 months Lucero Chirinos MD [facility] - Recent and Past Visits Recent Visits Date Type Provider Dept 03/26/21 Office Visit Lucero Chirinos MD [facility] 02/22/21 Office Visit Chrissy Melissa APN, IT INFRASTRUCTURE SPECIALIST [facility] 09/14/20 Office Visit Lucero Chirinos MD [facility] 03/10/20 Office Visit Lucero Chirinos MD [facility] Showing recent visits within past 460 days [...] Depression Total Score: 0 09/14/19 4:00 PM SEED SALES MANAGER documented as of this encounter Care Teams Graphics Production Specialist Relationship Specialty Start Date End Date Lucero Chirinos MD PCP - General Family Medicine 05/26/15 12/09/22 documented as of this encounter
--- OUTSIDE RECORDS SUMMARY | 2025-08-14 10:22 | XMS_ITS | Encounter Summary ---
Author Organization [facility] Address [address] [place] [address] Phone Care Team Providers Care Trading Analyst Name Role Phone Lucero Chirinos MD Primary Care Provider Reason for Visit * Reason Comments Medication Refill Encounter Details Date Type Department Care Team (Late st Contact Info) Description 10/06[facility]20[facility] [place] [address] [place] [address] Lucero Chirinos MD [address] [place] [address] Medication Refill Social History Tobacco [...] Total Score: 0 09/14/19 21 4:00 PM PLAY THERAPIST documented as of this encounter Care Teams Trading Analyst Relationship Specialty Start Date End Date Lucero Chirinos MD PCP - General Family Medicine 05/26/15 12/09/22 documented as of this encounter
--- OUTSIDE RECORDS SUMMARY | 2025-08-14 10:22 | XMS_ITS | Encounter Summary ---
Author Organization [employer] [facility] Address [address] [place] [address] Care Team Providers Care Paperboard Machine Operator Name Role Phone Lucero Chirinos MD Primary Care Provider [phone] Reason for Visit * Reason Comments Medication Refill Encounter Details Date Type Department Care Team (Late st Contact Info) Description 12/06/2015 Refill [facility] [address] [address] Liya Ring MD NO ADDRESS ON FILE Social History Tobacco Use Types Packs/Day Years Used Date Smoking Tobacco: Never Alcohol Use Standard Drinks/Week Comments Yes 0 (1 standard drink = 0.6 oz pur e alcohol) Rarely Comments No Sex and Gender Information Value Date Recorded Sex Assigned at Not on file Legal Sex Female 5:30 AM ELECTRICAL ACCESSORIES II ASSEMBLER Gender Identity Not on file Sexual Orientation Not on file documented as of this encounter Plan of Treatment Not on file documented as of this encounter Visit Diagnoses Not on filedocumented in this encounter Care Teams Paperboard Machine Operator Relationship Specialty Start Date End Date Lucero Chirinos MD PCP - General Family Practice 01/22/15 documented as of this encounter
--- OUTSIDE RECORDS SUMMARY | 2025-08-14 10:22 | XMS_ITS | Clinical Summary ---
Author Organization [facility] [employer] [facility] Address [address] [address] Phone Care Team Providers Care Table Machine Operator Name Role Phone Unavailable Primary Care Provider [...] Covid-19 Vaccine, Vector-nr, Rs-ad26, Pf, 0.5 Ml (eTelemetry/J&OM Latam) 10/30/2020 Influenza Vaccine 06/11/2018 Influenza Vaccine greater [...] of 2) 10/20/2021 08/25/2021 Cologuard 01/06/2022 01/06/2019 Influenza Immunization (#1) 04/28/202511/2021, 08/25/2021, 06/21/2019, Additional history exists SARS-COV-2 Immunization (3 - season) 2025 09/16/2021, 10/30/2020 Respiratory Syncytial Virus (RSV) Immunization (Adult) (1 - 1-dose 75+ series) 2035 Colonoscopy Discontinued 07/05/2021 Colorectal Cancer Screening Discontinued Hepatitis B Immunization Aged Out No longer eligible based on patient's age to complete this topic Human Papillomavirus (HPV) Immunization (No Doses Required) Completed Meningococcal Immunization (ACWY) Aged Out No longer eligible based on patient's age to complete this topic Rotavirus Immunization Aged Out No lo nger eligible based on patient's age to complete this topic Procedures Procedure Name Priority Date/Time Associated Diagnosis Comments COLONOSCOPY 07/05/2021 12:00 AM CAP AND HAT PRODUCTION SUPERVISOR COLOGUARD Routine 01/06/2019 12:15 PM CDT Screening for malignant neoplasm of colon from Last 3 Months or Most Recently Relevant to Health Maintenance Results * HM COLONOSCOPY (07/05/2021 12:00 AM CAP AND HAT PRODUCTION SUPERVISOR) 07/05/2021 us Not On File Provider PROCEDURE/MINOR [...] Coulter. et al, N Engl J Med 2014;370(14):8858-7202) COLOGUARD RE-SCREENING RECOMMENDATION: Periodic routine colorectal cancer screening is an important part of preventive healthcare for asymptomatic persons at average risk for colorectal cancer. Following a negative Cologuard result, the Citizen Of [place] Cancer Society and U.S. Multi-Society Task Force screening guidelines recommend a Cologuard re-screening interval of 3 years. References: [place] Cancer Society (ACS). Colorectal cancer prevention and early detection. [place], [place]: [place] Cancer Society; [updated 2015Dec 19]. https://www.cancer.org/cancer/rjnat-udcqzs-nhjzcq/bgxaafzcl-ymvmmfjqc-wtxpkxf/ acs-recommendations.html. Accessed April 27, 2018; Doron PERALTA, Ulises ALLEN, Alfred KenneyK, Colorectal Cancer Screening: Recommendations for Physicians and Patients from the U.S. Multi-Society Task Force on Colorectal Cancer Screening, Am J Gastroenterology 2017; 112:8859-0758. Test Type: Composite algorithmic analysis of stool [...] can be accessed at the following location: www.[employer]/results. Additional description of the Cologuard test process, warnings and precautions can be found at www.cologuardtest.com. Rx Only. Stool specimen (specimen) 01/06/2019 12:15 PM CDT 01/08/2019 12:23 PM CDT us Lucero Chirinos MD BODY FLUIDS & STOOLS ORDERAB LES Final Result [address] [place] [address], [employer] [address] [place] [address] from Last 3 Months or Most Recently Relevant to Health Maintenance Insurance [facility]
--- OUTSIDE RECORDS SUMMARY | 2025-08-14 10:22 | XMS_ITS | Encounter Summary ---
Author Organization [employer] [facility] Address [address] [place] [address] Care Team Providers Care Concrete Grinder Operator Name Role Phone Lucero Chirinos MD Primary Care Provider [phone] Reason for Visit * Reason Comments Medication Refill Encounter Details Date Type Department Care Team (Late st Contact Info) Description 12/25/2015 Refill [facility] Cancer and Breast Med Onc [address] [address] Liya Ring MD NO ADDRESS ON FILE Social History Tobacco Use Types Packs/Day Years Used Date Smoking Tobacco: Never Alcohol Use Standard Drinks/Week Comments Yes 0 (1 standard drink = 0.6 oz pur e alcohol) Rarely Comments No Sex and Gender Information Value Date Recorded Sex Assigned at Not on file Legal Sex Female 5:30 AM METER MECHANIC Gender Identity Not on file Sexual Orientation Not on file documented as of this encounter Plan of Treatment Not on file documented as of this encounter Visit Diagnoses Not on filedocumented in this encounter Care Teams Concrete Grinder Operator Relationship Specialty Start Date End Date Lucero Chirinos MD PCP - General Family Practice 01/22/15 documented as of this encounter
--- OUTSIDE RECORDS SUMMARY | 2025-08-14 10:22 | XMS_ITS | Encounter Summary ---
Author Organization [facility] [facility] Address [address] [place] [address] Care Team Providers Care Electronic Bench Technician Name Role Phone Lucero Chirinos MD Primary Care Provider [phone] Reason for Visit * Reason Comments Medication Refill Encounter Details Date Type Department Care Team (Late st Contact Info) Description 07/19/2016 Refill [facility] Cancer and Breast Med Onc [address] [address] Liya Ring MD NO ADDRESS ON FILE Social History Tobacco Use Types Packs/Day Years Used Date Smoking Tobacco: Never Alcohol Use Standard Drinks/Week Comments Yes 0 (1 standard drink = 0.6 oz pur e alcohol) Rarely Comments No Sex and Gender Information Value Date Recorded Sex Assigned at Not on file Legal Sex Female 5:30 AM LIABILITY CLAIMS REPRESENTATIVE Gender Identity Not on file Sexual Orientation Not on file documented as of this encounter Plan of Treatment Not on file documented as of this encounter Visit Diagnoses Not on filedocumented in this encounter Care Teams Electronic Bench Technician Relationship Specialty Start Date End Date Lucero Chirinos MD PCP - General Family Practice 01/22/15 documented as of this encounter
--- OUTSIDE RECORDS SUMMARY | 2025-08-14 10:22 | XMS_ITS | Encounter Summary ---
Author Organization [employer] Address [address] [place] [address] Care Team Providers Care Manager Front Office Name Role Phone Lucero Chirinos MD Primary Care Provider [phone] Encounter Details Date Type Department Care Team (Late st Contact Info) Description 09/28/2007 Outpatient Historical [facility] Bismark Jade MD [address] [facility] [address] [place] [address] [place] [address] [facility] [address] [place] [address] Social History Tobacco Use Types Packs/Day Years Used Date Smoking Tobacco: Never Assessed Comments Unknown Sex and Gender Information Value Date Recorded Sex Assigned at Not on file 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 Gender Identity Not on file Sexual Orientation Not on file documented as of this encounter Plan of Treatment Not on file documented as of this encounter Procedures Procedure Name Priority Date/Time Associated Diagnosis Comments IR TUBE PLACEMENT Routine 09/28/2007 1:4 2 PM NEEDLE BOARD REPAIRER documented in this encounter Results * IR TUBE PLACEMENT (09/28/2007 1:42 PM NEEDLE BOARD REPAIRER) Anatomical Region Laterality Modality Other 09/28/2007 1:42 PM NEEDLE BOARD REPAIRER Narrative 09/29/2007 7:44 AM NEEDLE BOARD REPAIRER [facility] [address] [place], [place] [address] Admit Date: 09/28/2007 ARACELI LIM Sex: F Admit Prov: BISMARK JADE Date: 1960 Primary Care Prov: CMRN: [id number] [facility] [address] [place] [address] IMAGING SERVICES Ordering Prov: N/A Accession Number: [id number] Interpretation NEPHROSTOMY TUBE CHANGE 09/28/2007 History: Ureteral [...] removed and replaced with a new 8 Cuban locking pigtail catheter. The catheter was secured to the skin and a sterile dressing was applied. The patient tolerated the procedure well with no immediate complications. Impression: Status post exchange of right nephrostomy tube. . Dictated by: JHONATAN STEPHEN 09/28/2007 14:17 Electronically signed by: JHONATAN STEPHEN 09/29/2007 07:44 Transcribed: 09/28/2007 14:55 SJ Procedure Note Jhonatan Stephen - 09/29/2007 [place] [id number] [place], [place] [address] Admit Date: 09/28/2007 ARACELI LIM Sex: F Admit Prov: BISMARK JADE Date: 1960 Primary Care Prov: CMRN: [id number] [facility] [id number] IMAGING SERVICES Ordering Prov: N/A Interpretation NEPHROSTOMY [...] on filedocumented in this encounter Care Teams Manager Front Office Relationship Specialty Start Date End Date Lucero Chirinos MD PCP - General Family Practice 01/22/15 documented as of this encounter
--- OUTSIDE RECORDS SUMMARY | 2025-08-14 10:23 | XMS_ITS | Clinical Summary ---
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 Gender Identity Not on file Sexual Orientation [...] Comments DTAP/TDAP/TD VACCINES (1 - Tdap) 1979 BREAST CANCER SCREENING 2000 COLORECTAL SCREENING 2005 Colorectal Cancer Screening 2005 FIT-DNA Q 3 years 2005 FIT/FOBT Q 1 year 2005 Flex Sig/CT Colonography Q 5 years 2005 PNEUMOCOCCAL VACCINE 50+ YEARS (1 of 1 - PCV) 04/16/20 10 RSV VACCINE (60+ or ) (1 - Risk 50-74 years 1-dose series) 2010 ZOSTER VACCINE (1 of 2) 2010 Pre-Diabetes and Diabetes Screening 01/21/201701/21 INFLUENZA VACCINE (#1) 2025 OSTEOPOROSIS SCREENING 2025 12/07/2011 Procedures Procedure Name Priority Date/Time Associated Diagnosis Comments HEMOGLOBIN A1C Routine 01/21/2014 2:22 PM CDT Obesity XR DEXA BONE DENSITY AXIAL 1 OR MORE SITES Routine 12/07/2011 Post-menopausal from Last 3 Months or Most Recently Relevant to Health Maintenance Results * HEMOGLOBIN A1C (01/21/2014 2:22 PM CDT) HEMOGLOBIN A1C 5.9 4.1 - 6.1 % of Hgb [facility] EST. AVG GLUCOSE, A1C 123 mg/dL [facility] Comment: The reported estimated average glucose (eAG) based on the HbA1c determination is calculated using the ADAG study equation. 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
--- OUTSIDE RECORDS SUMMARY | 2025-08-14 10:23 | XMS_ITS | Clinical Summary ---
Author Organization [facility] [address] Address [address] [place] [address] Care Team Providers Care Hotel Housekeeper Name Role Phone CarlosAmina motleyMadiha PA Unavailable [phone] Siva Boswell MD Unavailable Brenda Carmona NP Primary Care Provider [phone] Allergies Active Allergy Reactions Criticality Noted Date Comments Adhesive Blisters High 12/15/2021 Adhesive Tape-Silicones Other (See comments) High Iodinated Contrast Media Hives Medium 06/13/2022 Medications ketoconazole (NIZORAL) 2 % cream APPLY TO THE AFFECTED AREA TWICE DAILY NEEDED 2021 Active cholecalciferol (VITAMIN D-3) 25 mcg (1,000 unit) tablet Take 1 tablet (1,000 Units total) by mouth daily Active meclizine (ANTIVERT) 12.5 mg tablet Take 1 tablet (12.5 mg total) by mouth 3 (three) times a day as needed for dizziness 90 tablet 4 2023 Active Additional Information Patient not taking.Reported on 08/14/2025 citalopram (CeleXA) 20 mg tabletIndications:Gene ralized Anxiety Disorder Take 1 tablet (20 mg total) by mouth daily 90 tablet 3 2024 Active levothyroxine (SYNTHROID) 112 mcg tabletIndications:Acqu ired hypothyroidism Take 1 tablet (112 mcg total) by mouth internal sales engineer before breakfast 90 tablet 3 2024 Active simvastatin (ZOCOR) 10 mg tabletIndications:Pure hypercholesterolemia Take 1 tablet (10 mg total) by mouth nightly 90 tablet 3 2024 Active lisinopriL (PRINIVIL,ZESTRIL) 40 mg tabletIndications:Esse ntial hypertension TAKE 1 TABLET BY MOUTH DAILY 100 tablet 1 2024 Active amLODIPine (NORVASC) 5 mg tabletIndications:Esse ntial hypertension TAKE 1 TABLET BY MOUTH DAILY 100 tablet 1 2024 Active amLODIPine (NORVASC) 5 mg tabletIndications:Esse ntial hypertension Take 1 tablet (5 mg total) by mouth daily 90 tablet 3 07/24 Discontinued lisinopriL (PRINIVIL,ZESTRIL) 40 mg tabletIndications:Esse ntial hypertension Take 1 tablet (40 mg total) by mouth daily 90 tablet 3 07/24 Discontinued Active Problems Problem Noted Date Diagnosed Date Concern about memory 10/09/2024 Class 3 severe obesity due t o excess calories with serious comorbidity and body mass index (BMI) of 40.0 to 44.9 in adult 09/25/2023 Assessment & Plan (04/07/2025 7:29 AM CDT): BMI Follow-up includes: education provided. Assessment & Plan (10/09/2024 11:09 AM ORACLE APEX DEVELOPER): BMI Follow-up includes: nutrition counseling. Assessment & [...] left 01/30/2022 Hypothyroidism 12/31/2020 Assessment & Plan (04/07/2025 7:29 AM CDT): Assessment & Plan (09/06/2024 10:24 AM ORACLE APEX DEVELOPER): Clinically euthyroid. Refill levothyroxine 112 mcg daily. Will need labs in the future. Assessment & Plan (03/14/2024 6:40 PM CDT): Chronic. Clinically euthyroid. Check TSH and adjust levothyroxine as needed. Patient denies any missed doses Assessment & Plan (12/14/2023 6:06 PM CDT): Chronic. Euthyroid. Continue rx OAB (overactive bladder) 07/22/2019 Prediabetes 07/22/2019 Assessment & Plan (04/07/2025 7:29 AM CDT): Due for lab work. A1c ordered. Encouraged to get labs done today Assessment & Plan (10/09/2024 11:08 AM ORACLE APEX DEVELOPER): Last A1c 6% in 2022. Will recheck with labs. Assessment & Plan (03/14/2024 6:40 PM CDT): Chronic. Control uncertain. Encouraged healthy diet, exercise and weight loss. Monitor H/O bilateral mastectomy 03/23/2018 Hyperlipidemia 09/18/2017 Assessment & Plan (04/07/2025 7:29 AM CDT): Assessment & Plan (09/06/2024 10:24 AM ORACLE APEX DEVELOPER): Chronic, continue simvastatin 10 mg daily. Assessment [...] aids when checked Vitamin B12 deficiency 12/17/2015 Assessment & Plan (04/07/2025 7:29 AM CDT): Hx of. Will recheck B12 level with labs Essential hypertension 12/01/2011 Assessment & Plan (04/07/2025 7:29 AM CDT): Assessment & Plan (09/06/2024 10:23 AM ORACLE APEX DEVELOPER): Chronic. HTN controlled. Refill amlodipine and lisinopril. [...] (generalized anxiety disorder) 12/01/2011 Assessment & Plan (04/07/2025 7:29 AM CDT): Stable. Continue citalopram Assessment & Plan (09/06/2024 10:23 AM ORACLE APEX DEVELOPER): Anxiety is chronic and well controlled. Refill citalopram 20 mg Assessment & Plan (03/14/2024 6:40 PM CDT): Chronic. Controlled. Continue citalopram as patient is not yet willing to consider weaning the dose. Brief supportive counseling provided HX: breast cancer 05/21/2009 Overview (04/20/2021): Overview: Dx in 2001. Left Breast T1 N0 Stage 1, ER (+) [facility] (+) HER2 (+), Tamoxifen Dx in 2001. Left Breast T1 N0 Stage 1, ER (+) [facility] (+) HER2 (+), Tamoxifen Resolved Problems Problem Noted Date Diagnosed Date Resolved Date Primary osteoarthritis of both knees 06/21/2022 02/07/2023 Arthritis of knee 06/21/2022 02/07/2023 Ventricular premature complexes 03/21/2017 02/07/2023 Palpitations 02/21/2017 03/14/2024 IFG (impaired fasting glucose) 01/20/2017 02/07/2023 Obesity (BMI 30-39.9) 11/18/20162022 Osteoarthritis of both knees 12/17/2015 02/07/2023 Encounters Date Type Department Care Team Description 08/14/2025 8:15 AM ORACLE APEX DEVELOPER Office Visit [facility] at [address] [address] Joy Tran NP Acute left flank pain (Primary Dx) 06/11/2025 Results Follow-Up [facility] at [address] [phone] Batsheva Gonzalez NP CBC with auto differential, Comprehensive metabolic panel, Lipid panel, Additional followed-up results: 5 06/06/2025 8:25 AM CDT Lab [address] [address] Screening for deficiency anemia; Screening for metabolic disorder; Lipid screening; Thyroid disorder screen; Screening for diabetes mellitus; Vitamin B12 deficiency from Last 3 Months Immunizations Immunization Administration [...] Comments OTHER SURGICAL HISTORY Bi lateral mastectomy 2003: Hysterectomy, vaginal HYSTERECTOMY W/ BILATERAL SALPINGOOPHORECTOMY total for fibroid and persistent enlarged uterus. no longer needs pap URETERAL STENT PLACEMENT TOTAL KNEE ARTHROPLASTY Bilateral COLONOSCOPY W/ POLYPECTOMY 07/05/2021 Tubular adenomas seen. Repeat in [address] Andrew SECTION [id number] Medical History Medical History Date Comments Osteoarthritis [...] on file Legal Sex Female 12:27 AM ORACLE APEX DEVELOPER Gender Identity Not on file Sexual Orientation Not on file Last Filed Vital Signs Vital Sign Reading Time Taken Comments Blood Pressure 128/82 08/14/2025 8:11 AM ORACLE APEX DEVELOPER Pulse 77 08/14/2025 8:08 AM ORACLE APEX DEVELOPER Temperature 36.3 C (97.4 F) 08/14/2025 8:08 AM ORACLE APEX DEVELOPER Respiratory Rate 18 08/14/2025 8:08 AM ORACLE APEX DEVELOPER Oxygen Saturation 96% 08/14/2025 8:08 AM ORACLE APEX DEVELOPER Inhaled Oxygen Concentration - - Weight 123.3 kg (271 lb 12.8 oz) 08/14/2025 8:08 AM ORACLE APEX DEVELOPER Height 165.1 cm (5' 5) 08/14/2025 8:08 AM ORACLE APEX DEVELOPER Body Mass Index 45.23 08/14/2025 8:08 AM ORACLE APEX DEVELOPER Plan of Treatment Health Maintenance Due Date Last Done Comments Hepatitis B Screening 1978 Pneumococcal vaccine 65+ (1 of 1 - PCV) 2010 Osteoporosis Screening-Bone Density Scan 12/06/2013 12/07/2011, 12/07/2011 Zoster Vaccine (2 of 2) 10/20/2021 08/25/2021 Covid-19 Vaccine (4 - 2024-2 6 season) 2025 08/29/2024, 09/16/2021, 10/30/2020 Influenza Vaccine (#1) 2025 , 08/16/2023, 05/31/2022, Additional history exists Fall Risk Assessment 05/20/2025 05/20/2024, 06/22/20 22 Depression Screening 04/07/2026 04/07/2025, 05/20/2024, 03/14/2024, Additional history exists Well Visit 65+ 04/07/2026 04/07/2025, 02/25, 02/07/2023 Colon Cancer Screening-Colonoscopy 02/17/2028 02/16/2023, 07/05/2021 DTaP/Tdap/Td Vaccine (2 - Td or Tdap) 01/04/2033 01/04/2023 Colon Cancer Screening-CT Colonography Discontinued 02/16/2023 Colon Cancer Screening-DNA Stool Discontinued 02/17/20 Colon Cancer Screening-FIT Discontinued 02/16/2023 Colon Cancer Screening-Sigmoidoscopy Discontinued 02/16/2023 Hepatitis C Screening Completed 03/13/2023 Medical Devices Implanted Type Area Applied Technologist Device Identifier Shelf Expiration Date Model / Serial / Lot [employer] [id number] Attune Cruciate Retain Cementless Knee Left 4 Component Femoral - [id number] Implanted:Qty: 1 on 12/21/2021 by Siva Boswell MD at [facility] Left: Knee [employer] 08/27/2029 [id number] / / [id number] [employer] [id number] Attune 6mm Cruciate Retaining Rotate Platform Knee 4 Insert - [id number] Implanted:Qty: 1 on 12/21/2021 by Siav Boswell MD at [facility] Left: Knee [employer] 08/27/2026 [id number] / / [id number] [employer] [id number] Attune Cementless Rotate Platform Knee 4 Baseplate Tibial - [id number] Implanted:Qty: 1 on 12/21/2021 by Siva Boswell MD at [facility] Left: Knee [employer] 05/27/2031 [id number] / / [id number] [employer] Attune Fb Tib Base Sz 4 Por [id number] - [id number] Implanted:Qty: 1 on 06/21/2022 by Siva Boswell MD at [facility] Right: Knee [employer] 10/26/2031 [id number] / / [id number] [employer] Attune Cruciate Retain Cementless Knee Right 4 Component Femoral [id number] - [id number] Implanted:Qty: 1 on 06/21/2022 by Siva Boswell MD at [facility] Right: Knee [employer] 07/27/2029 [id number] / / [id number] [employer] Attune 6mm Cruciate Retaining Fix Bearing Knee 4 Insert Tibial [id number] - [id number] Implanted:Qty: 1 on 06/21/2022 by Siva Boswell MD at [facility] Right: Knee [employer] 02/24/2027 [id number] / / [id number] Procedures Procedure Name Priority Date/Time Associated Diagnosis Comments POCT URINALYSIS DIPSTICK Routine 08/14/2025 8:43 AM ORACLE APEX DEVELOPER Acute left flank pain EGFR Routine 06/06/2025 8:49 AM CDT Screening for metabolic disorder DIFFERENTIAL AUTO Routine 06/06/2025 8:4 9 AM CDT Screening for deficiency anemia VITAMIN B12 Routine 06/06/2025 8:49 AM CDT Vitamin B12 deficiency HEMOGLOBIN A1C Routine 06/06/2025 8:49 AM CDT Screening for diabetes mellitus THYROID FUNCTION CASCADE Routine 06/06/2025 8:49 AM CDT Thyroid disorder screen LIPID PANEL Routine 06/06/2025 8:49 AM CDT Lipid screening COMPREHENSIVE METABOLIC PANEL Routine 06/06/2025 8:49 AM CDT Screening for metabolic disorder CBC WITH AUTO DIFFERENTIAL Routine 06/06/2025 8:49 AM CDT Screening for deficiency anemia HEPATITIS C ANTIBODY Routine 03/13/2023 8:48 AM CDT Encounter for hepatitis C screening test for low risk patient Annual physical exam HM COLONOSCOPY Routine 02/16/2023 4:30 PM CDT from Last 3 Months or Most Recently Relevant to Health Maintenance Results * POCT urinalysis dipstick (08/14/2025 8:43 AM ORACLE APEX DEVELOPER) Color, Urine, POC Yellow Clarity, ur, POC Clear Clear Glucose, ur, POC Negative Negative Bilirubin, ur, POC Negative Negative Ketones, ur, POC Negative Negative Specific [place], POC 1.030 1.003 - 1.030 Blood, ur, POC Negative Negative pH, ur, POC 6.0 5.0 - 8.0 Protein, ur, POC Negative Negative Urobilinogen, urine, POC 0.2 0.2 - 1.0 mg/dL Nitrite, ur, POC Negative Negative Leukocytes, ur, POC Negative Negative Lot Number [id number] Urine 08/14/2025 8:43 AM ORACLE APEX DEVELOPER Joy Tran NP POINT OF CARE TEST ORDERAB LES Final Result * eGFR (06/06/2025 8:49 AM CDT) eGFR 87 >=60 mL/min/1. 73 m2 Comment: Interpretive Data Reference Interval Normal >/= 90 mL/min/1.73m2 Mildly decreased* 60 - 89 mL/min/1.73m2 Mildly to moderately decreased 45 - 59 mL/min/1.73m2 Moderately to severely decreased 30 - 44 mL/min/1.73m2 Severely decreased 15 - 29 mL/min/1.73m2 Kidney Failure < 15 mL/min/1.73m2 *Relative to young adult level Estimated glomerular filtration rate is determined by the 2020 CKD-EPI equation recommended by the National Kidney Foundation (A Unifying Approach to GFR Estimation: Recommendations of the NKF-ASK Task Force on Reassessing the Inclusion of Race in Diagnosing Kidney Disease, JASN 2020). The CKD-EPI equation should not be used for patients with unstable renal function and has not been validated in children and those over 70. Current interpretive data was last reviewed 2021. Blood 06/06/2025 8:49 AM CDT 06/06/2025 10:43 AM CDT Brenda Carmona AUTOMOTIVE SALES REPRESENTATIVE LAB BLOOD ORDERABLES Final Re sult [facility] [address] [facility] Department [place] [address] * Differential, auto (06/06/2025 8:49 AM CDT) Neutrophil abs 5.06 1.50 - 6.50 K/cumm Imm gran abs 0.02 0.00 - 0.10 K/cumm [facility] Lymphocyte abs 2.39 0.80 - 3.30 K/cumm [facility] Monocyte abs 0.80 0.20 - 0.80 K/cumm [facility] Eosinophil abs 0.26 0.00 - 0.50 K/cumm [facility] Basophil abs 0.06 0.00 - 0.10 K/cumm [facility] Neutrophil pct 59.0 % [facility] Comment: Interpretive Data Percent cell count reference ranges are not reported, since discordance with absolute values may lead to misinterpretation of CBC data. Current Interpretive Data was last revised on 2017. Imm gran pct 0.2 % [facility] Comment: Interpretive Data Percent cell count reference ranges are not reported, since discordance with absolute values may lead to misinterpretation of CBC data. Current Interpretive Data was last revised on 2017. Lymphocyte pct 27.8 % [facility] Comment: Interpretive Data Percent cell count reference ranges are not reported, since discordance with absolute values may lead to misinterpretation of CBC data. Current Interpretive Data was last revised on 2017. Monocyte pct 9.3 % [facility] Comment: Interpretive Data Percent cell count reference ranges are not reported, since discordance with absolute values may lead to misinterpretation of CBC data. Current Interpretive Data was last revised on 2017. Eosinophil pct 3.0 % [facility] Comment: Interpretive Data Percent cell count reference ranges are not reported, since discordance with absolute values may lead to misinterpretation of CBC data. Current Interpretive Data was last revised on 2017. Basophil pct 0.7 % [facility] Comment: Interpretive Data Percent cell count reference ranges are not reported, since discordance with absolute values may lead to misinterpretation of CBC data. Current Interpretive Data was last revised on 2017. Blood 06/06/2025 8:49 AM CDT 06/06/2025 10:43 AM CDT Brenda Carmona NP LAB BLOOD ORDERABLES Final Re sult [facility] [address] [facility] Department [place] [address] * Thyroid Function Nye (06/06/2025 8:49 AM CDT) TSH 1.59 0.30 - 4.20 mcIUnit/mL Blood 06/06/2025 8:49 AM CDT 06/06/2025 10:43 AM CDT Brenda Carmona NP LAB BLOOD ORDERABLES Final Re sult [facility] [address] [place] [address] * (ABNORMAL) CBC with auto differential (06/06/2025 8:49 AM CDT) [facility] WBC 8.59 3.80 - 9.90 K/cumm Hgb 13.8 11.9 - 15.5 g/dL [facility] Hct 43.9 35.6 - 45.5 % [facility] Plt 434(H) 150 - 400 K/cumm [facility] MPV 10.6 9.1 - 12.3 fL [facility] RBC 4.98 3.90 - 5.20 M/cumm [facility] MCV 88.2 81.3 - 96.4 fL [facility] MCH 27.7 27.1 - 33.3 pg [facility] MCHC 31.4(L) 32.3 - 35.7 g/dL [facility] RDW CV 14.0 11.1 - 14.9 % [facility] RDW SD 44.7 35.7 - 48.1 fL [facility] NRBC abs 0.00 0.00 - 0.01 K/cumm [facility] Blood 06/06/2025 8:49 AM CDT 06/06/2025 10:43 AM CDT Brenda Carmona NP LAB BLOOD ORDERABLES Final Re sult Performing Organization Address City/[facility]/ZIP Co de Phone Number [facility] [address] [place] [address] * (ABNORMAL) Hemoglobin A1c (06/06/2025 8:49 AM CDT) [facility] Hgb A1C 6.1(H) 4.0 - 5.6 % Estimated Average Glucose 128 mg/dL [facility] Comment: The ADA recommends reporting an estimated Average Glucose (eAG) with all Hemoglobin A1c results using the equation derived from a study of 507 normal and diabetic adults. Minority populations were underrepresented and children were not included. (Diabetes Care 31:0888-3630, 2008). The eAG is not equivalent to a fasting glucose. Blood 06/06/2025 8:49 AM CDT 06/06/2025 10:43 AM CDT Brenda Carmona NP LAB BLOOD ORDERABLES Final Re sult Performing Organization Address [facility] de Phone Number [address] [address] * (ABNORMAL) Vitamin B12 (06/06/2025 8:49 AM CDT) Vitamin B12 198(L) 230 - 1,250 pg/mL Blood 06/06/2025 8:49 AM CDT 06/06/2025 10:43 AM CDT Brenda Carmona LAB BLOOD ORDERABLES Final Re sult Performing Organization Address [facility] de Phone Number [address] [address] * (ABNORMAL) Lipid panel (06/06/2025 8:49 AM CDT) Cholesterol 153 30 - 199 mg/dL Comment: Interpretive Data Ages < or = 19 years Acceptable: <170 mg/dL Borderline high: 170-199 mg/dL High: >or= 200 mg/dL Ages > or = 20 years Desirable: <200 mg/dL Borderline high: 200-239 mg/dL High: >or= 240 mg/dL Literature References: 1. Expert Panel on Integrated Guidelines for Cardiovascular Health and Risk Reduction in Children and Adolescents. Pediatrics 2011;128:S213 2. NCEP Expert Panel. Circulation 2004;110:227 Current Interpretive Data was last revised on 2018. Triglycerides 174(H) <=149 mg/dL [facility] Comment: Interpretive Data Ages < or = 9 years Acceptable: <75 mg/dL Borderline high: 75-99 mg/dL High: >or= 100 mg/dL Ages 10 to 20 years Acceptable: <90 mg/dL Borderline high: 90-129 mg/dL High: >or= 130 mg/dL Ages > or = 20 years Desirable: <150 mg/dL Borderline high: 150-199 mg/dL High: 200-499 mg/dL Very high: >or= 499 mg/dL Literature References: 1. Expert Panel on Integrated Guidelines for Cardiovascular Health and Risk Reduction in Children and Adolescents. Pediatrics 2011;128:S213 2. NCEP Expert Panel. Circulation 2004;110:227 Current Interpretive Data was last revised on 2018. HDL 42 >=40 mg/dL [facility] Comment: Interpretive Data Ages < or = 19 years Acceptable: >45 mg/dL Borderline low: 40-45 mg/dL Low: <40 mg/dL Ages > or = 20 years Desirable: >or= 60 mg/dL Low: <40 mg/dL Literature References: 1. Expert Panel on Integrated Guidelines for Cardiovascular Health and Risk Reduction in Children and Adolescents. Pediatrics 2011;128:S213 2. NCEP Expert Panel. Circulation 2004;110:227 Current Interpretive Data was last revised on 2018. LDL, calculated 81 <=129 mg/dL [facility] Comment: Interpretive Data Ages < or = 19 years Acceptable: <110 mg/dL Borderline high: 110-129 mg/dL High: >or= 130 mg/dL Ages > or = 20 years Optimal: <100 mg/dL Near optimal: 100-129 mg/dL Borderline high: 130-159 mg/dL High: >160 mg/dL Calculated using the Fernie LDL-C estimating equation. This equation was implemented on 2024. Prior to this date LDL-C was estimated using the Friedewald equation. Literature References: 1. Expert Panel on Integrated Guidelines for Cardiovascular Health and Risk Reduction in Children and Adolescents. Pediatrics 2011;128:S213 2. NCEP Expert Panel. Circulation 2004;110:227 3. Fernie Cordova al. BRINA Cardiol. 2020 December 26;5(5):540-548. doi: 10.1001/jamacardio.2020.0013 Current Interpretive Data was last revised on 2024. Non-HDL Cholesterol 111 mg/dL [facility] Comment: Interpretive Data Ages < or = 19 years Acceptable: <120 mg/dL Borderline high: 120-144 mg/dL High: >145 mg/dL Ages > or = 20 years When triglycerides are >200 mg/dL, Non-HDL cholesterol is a secondary target of therapy with treatment goals that are 30 mg/dL greater than the LDL cholesterol target. Literature References: 1. Expert Panel on Integrated Guidelines for Cardiovascular Health and Risk Reduction in Children and Adolescents. Pediatrics 2011;128:S213 2. NCEP Expert Panel. Circulation 2004;110:227 Current Interpretive Data was last revised on 2018. Chol/HDL ratio 4 [facility] Blood 06/06/2025 8:49 AM CDT 06/06/2025 10:43 AM CDT Brenda Carmona NP LAB BLOOD ORDERABLES Final Re sult [facility] [address] [facility] Department [place] [address] * (ABNORMAL) Comprehensive metabolic panel (06/06/2025 8:49 AM CDT) Sodium 139 135 - 145 mmol/L Potassium, pl 4.5 3.3 - 4.9 mmol/L [facility] Chloride 103 97 - 110 mmol/L [facility] CO2 28 22 - 32 mmol/L [facility] Anion gap 8 2 - 15 mmol/L [facility] BUN 14 6 - 25 mg/dL [facility] Creatinine 0.76 0.60 - 1.10 mg/dL [facility] Glucose 118 70 - 199 mg/dL [facility] Comment: Interpretive Data Fasting glucose >/= 126 mg/dl is diagnostic for diabetes. Fasting is defined as no caloric intake for at least 8 hours. Fasting glucose between 100 mg/dl to 125 mg/dl is diagnostic of prediabetes. In a patient with classic symptoms of hyperglycemia or hyperglycemic crisis, a random glucose >/= 200 mg/dl is diagnostic for diabetes. In the absence of unequivocal hyperglycemia, results should be confirmed by repeat testing. The classification and Diagnosis of Diabetes Diabetes Care 2021; 46: S19-S40. Current interpretive data was last revised 2022. Calcium 10.5(H) 8.5 - 10.3 mg/dL [facility] Bilirubin, total 0.5 0.1 - 1.2 mg/dL [facility] Protein, pl 6.9 6.5 - 8.5 g/dL [facility] Albumin 4.1 3.5 - 5.0 g/dL [facility] Alk phos 63 40 - 130 Units/L [facility] ALT 15 7 - 45 Units/L [facility] AST 23 10 - 45 Units/L [facility] Blood 06/06/2025 8:49 AM CDT 06/06/2025 10:43 AM CDT Brenda Carmona NP LAB BLOOD ORDERABLES Final Re sult Performing Organization Address City/[facility] Co de Phone Number [facility] [address] [facility] Department [place] [address] * Hepatitis C antibody (03/13/2023 8:48 AM CDT) Hep C Ab Nonreactive Nonreactive [facility] Comment: Interpretive Data Nonreactive: Antibodies to HCV [...] MICROBIOLOGY - GEN ERAL ORDERABLES Final Result [facility] [address] Department [place] [address] * HM COLONOSCOPY (02/16/2023 4:30 PM CDT) us Historical Provider HEALTH MAINTENANCE Final Result from Last 3 Months or Most Recently Relevant to Health Maintenance Insurance [employer] ACCESS Advance Directives For more information, please contact: [phone] * Full Code (Latest Code Status on File) Date Activated Date Inactivated Comments 06/21/2022 4:34 PM 06/22/2022 8:04 PM * Full Code Date Activated Date Inactivated Comments 12/21/2021 1:16 PM 12/23/2021 7:53 PM Care Teams Hotel Housekeeper Relationship Specialty Start Date End Date Brenda Carmona NP [address] [facility] [address] [place] [address] PCP - General Family Medicine 10/09/24 Amina Gonzalez PA Physician Oil And Gas Recruiter Orthopedic Surgery 12/22/21 Siva Boswell MD [address] [facility] [address] [place] [address] [address] Surgeon Orthopedic Surgery 04/28/22
[2025-08-14 10:35] LABS: Alanine Aminotransferase 23 U/L (6-35); Albumin Level 4.3 g/dL (3.5-5.1); Alkaline Phosphatase 69 U/L (38-126); Anion Gap 5 mmol/L (4-12); Aspartate Amino Transferase 28 U/L (14-36); Bilirubin,Total 0.7 mg/dL (0.2-1.3); Blood Urea Nitrogen 16 mg/dL (7-17); Calcium 9.6 mg/dL (8.4-10.2); Carbon Dioxide 27 mmol/L (22-30); Chloride 106 mmol/L (98-107); Estimated CRCL calculation 91 ml/min; Estimated Glomerular Filt Rate > 60; Glucose 105 mg/dL (65-110); Potassium 4.3 mmol/L (3.4-5.0); Sodium 138 mmol/L (137-145); Total Protein 7.8 g/dL (6.3-8.2)
[2025-08-14 11:40] LABS: Add Urine Microscopic? NO; Appearance Urine Clear (Clear); Glucose Urine UA Negative (Negative); Leukocyte Esterase Ur Negative LEU/UL (Negative); Nitrate Urine Negative (Negative); Specific Grav Ur 1.017 (1.001-1.035)
[2025-08-14] MEDS: diazePAM INJ (*CRX) 10 MG/2 ML SYRINGE 2.5 MG IV PUSH (12:25)
--- OUTSIDE RECORDS SUMMARY | 2025-08-14 12:26 | XMS_ITS | Encounter Summary ---
Author Organization [employer] Address [address] [place] [address] Care Team Providers Care Facility Service Manager Name Role Phone Lucero Chirinos MD Primary Care Provider [phone] Encounter Details Date Type Department Care Team (Late st Contact Info) Description 11/19/2007 Outpatient Historical [facility] Bismark Jade MD [address] [facility] [address] [place] [address] [place] [address] [facility] [address] [place], [place] [id number] Other Ureteric Obstruction Social History Tobacco Use Types Packs/Day Years Used Date Smoking Tobacco: Never Assessed Comments Unknown Sex and Gender Information Value Date Recorded Sex Assigned at Not on file Legal Sex Female 5:30 AM TRIP FOLLOWER Gender Identity Not on file Sexual Orientation [...] PM CDT Narrative 11/22/2007 11:28 AM CDT [facility] [address] [place], [place] [address] Admit Date: 11/19/2007 ARACELI LIM Sex: F Admit Prov: BISMARK JADE Date: 1960 Primary Care Prov: CMRN: [id number] [id number] [facility] Ordering Prov: N/A Accession Number: [id number] Interpretation Cystogram 11/19/2007 History: 593.4, ureteral obstruction Findings: The latexer radiograph demonstrates a nephrostomy tube in place [...] Procedure Note Jhonatan Stephen MD - 11/22/2007 [place] [address] [place], [place] [address] Admit Date: 11/19/2007 ARACELI LIM Sex: F Admit Prov: BISMARK JADE Date: 1960 Primary Care Prov: CMRN: [id number] [facility] [id number] IM[facility] Ordering Prov: N/A Interpretation Cystogram 11/19/2007 History: 593.4, ureteral obstruction Findings: The latexer radiograph demonstrates a nephrostomy tube inplace on [...] obstruction documented in this encounter Care Teams Facility Service Manager Relationship Specialty Start Date End Date Lucero Chirinos MD PCP - General Family Practice 01/22/15 documented as of this encounter
--- OUTSIDE RECORDS SUMMARY | 2025-08-14 12:26 | XMS_ITS | Encounter Summary ---
Author Organization [facility] Address [address] [place] [address] Care Team Providers Care Cane Stripper Name Role Phone Lucero Chirinos MD Primary Care Provider [phone] Encounter Details Date Type Department Care Team (Late st Contact Info) Description 09/28/1998 Outpatient Historical [facility] [address] [address] Joleen Borges MD NO ADDRESS ON FILE Social History Tobacco Use Types Packs/Day Years Used Date Smoking Tobacco: Never Assessed Comments Unknown Sex and Gender Information Value Date Recorded Sex Assigned at Not on file Legal Sex Female 5:30 AM HADOOP ADMINISTRATOR Gender Identity Not on file Sexual Orientation Not on file documented as of this encounter Plan of Treatment Not on file documented as of this encounter Visit Diagnoses Not on filedocumented in this encounter Care Teams Cane Stripper Relationship Specialty Start Date End Date Lucero Chirinos MD PCP - General Family Practice 01/22/15 documented as of this encounter
--- OUTSIDE RECORDS SUMMARY | 2025-08-14 12:26 | XMS_ITS | Encounter Summary ---
Author Organization [facility] Address [address] [place] [address] Care Team Providers Care Meter Reader Name Role Phone Lucero Chirinos MD Primary Care Provider [phone] Reason for Visit * Reason Comments Medication Refill Encounter Details Date Type Department Care Team (Late st Contact Info) Description 07/19/2016 Refill [facility] Cancer and Breast Med Onc [address] [address] Liya Ring MD NO ADDRESS ON FILE Social History Tobacco Use Types Packs/Day Years Used Date Smoking Tobacco: Never Alcohol Use Standard Drinks/Week Comments Yes 0 (1 standard drink = 0.6 oz pur e alcohol) Rarely Comments No Sex and Gender Information Value Date Recorded Sex Assigned at Not on file Legal Sex Female 5:30 AM SR COMMUNITY MANAGER Gender Identity Not on file Sexual Orientation Not on file documented as of this encounter Plan of Treatment Not on file documented as of this encounter Visit Diagnoses Not on filedocumented in this encounter Care Teams Meter Reader Relationship Specialty Start Date End Date Lucero Chirinos MD PCP - General Family Practice 01/22/15 documented as of this encounter
--- OUTSIDE RECORDS SUMMARY | 2025-08-14 12:26 | XMS_ITS | Clinical Summary ---
Author Organization [facility] Address [address] [address] Phone Care Team Providers Care Eyeglass Maker Name Role Phone Unavailable Primary Care Provider [...] Covid-19 Vaccine, Vector-nr, Rs-ad26, Pf, 0.5 Ml ([email or web address]) 10/30/2020 Influenza Vaccine 06/11/2018 Influenza Vaccine greater [...] Associated Diagnosis Comments COLONOSCOPY 07/05/2021 12:00 AM PLANNING FEEDER COLOGUARD Routine 01/06/2019 12:15 PM CDT Screening for malignant neoplasm of colon from Last 3 Months or Most Recently Relevant to Health Maintenance Results * HM COLONOSCOPY (07/05/2021 12:00 AM PLANNING FEEDER) 07/05/2021 us Not On File Provider PROCEDURE/MINOR [...] Coulter. et al, N Engl J Med 2014;370(14):3650-9897) COLOGUARD RE-SCREENING RECOMMENDATION: Periodic routine colorectal cancer screening is an important part of preventive healthcare for asymptomatic persons at average risk for colorectal cancer. Following a negative Cologuard result, the [place] Cancer Society and U.S. Multi-Society Task Force screening guidelines recommend a Cologuard re-screening interval of 3 years. References: [place] [employer] Society (ACS). Colorectal cancer prevention and early detection. [place], [place]: [place] [employer] Society; [updated 2015Dec 19]. https://www.cancer.org/cancer/mujtp-fkzmlo-ajazca/ppigdnvjf-boldhcufh-euhajga/ acs-recommendations.html. Accessed April 27, 2018; Doron PERALTA, Ulises ALLEN, Alfred KenneyK, Colorectal Cancer Screening: Recommendations for Physicians and Patients from the U.S. Multi-Society Task Force on Colorectal Cancer Screening, Am J Gastroenterology 2017; 112:5433-4502. Test Type: Composite algorithmic analysis of stool [...] can be accessed at the following location: www.Shopsy.GFRANQ/results. Additional description of the Cologuard test process, warnings and precautions can be found at www.cologuardtest.com. Rx Only. Stool specimen (specimen) 01/06/2019 12:15 PM CDT 01/08/2019 12:23 PM CDT us Lucero Chirinos MD BODY FLUIDS & STOOLS ORDERAB LES Final Result [address] [place] [address], [employer] [address] [place] [address] from Last 3 Months or Most Recently Relevant to Health Maintenance Insurance [facility]
--- OUTSIDE RECORDS SUMMARY | 2025-08-14 12:26 | XMS_ITS | Encounter Summary ---
Author Organization [facility] Address [address] [place] [address] Phone Care Team Providers Care Stock Analyst Name Role Phone Lucero Chirinos MD Primary Care Provider Reason for Visit * Reason Comments Medication Refill Encounter Details Date Type Department Care Team (Late st Contact Info) Description 01/03/2021 Refill [facility] - [place] [address] [place] [address] Lucero Chirinos MD [address] [place] [address] Medication Refill Social History Tobacco [...] Outpatient Visits 3 months ago Essential hypertension [facility] Lucero Chirinos MD 10 months ago Physical exam, annual (Adult) [facility] Lucero Chirinos MD 1 year ago Essential hypertension [facility]NOTE 2] Lucero Chirinos MD 2 years ago Physical exam, annual (Adult) [facility] [place]NOTE 2] Lucero Chirinos MD 2 years ago Essential hypertension [facility] [place]NOTE 2] Lucero Chirinos MD Upcoming Appointments Future Appointments In 1 week Lucero Chirinos MD [facility] - Recent and Past Visits Recent Visits Date Type Provider Dept 09/14/20 Office Visit Lucero Chirinos MD [facility] 03/10/20 Office Visit Lucero Chirinos MD [facility] Showing recent visits within past 460 days with a meds authorizing provider and meeting all other requirements Future Appointments Date Type Provider Dept 01/12/21 Appointment Lucero Chirinos MD [facility] Showing future appointments within next 90 days with a meds authorizing provider and meeting all other requirements documented in this encounter Plan of Treatment Not on file documented as of this encounter Visit Diagnoses Diagnosis Anxiety Anxiety state, unspecified documented in this encounter Additional Health Concerns Assessment Noted Time PHQ-9 Depression Total Score: 0 09/14/19 21 4:00 PM WILDLIFE CONSERVATION PROFESSOR documented as of this encounter Care Teams Stock Analyst Relationship Specialty Start Date End Date Lucero Chirinos MD PCP - General Family Medicine 05/26/15 12/09/22 documented as of this encounter
--- OUTSIDE RECORDS SUMMARY | 2025-08-14 12:26 | XMS_ITS | Encounter Summary ---
Author Organization [employer] Address [address] [place] [address] Care Team Providers Care Fibre Technologist Name Role Phone Lucero Chirinos MD Primary Care Provider [phone] Encounter Details Date Type Department Care Team (Late st Contact Info) Description 11/26/2007 Outpatient Historical [facility] Bismark Jade MD [address] [address] David Thomas MD Department of Radiology [address] [place], [place] [id number] Other Ureteric Obstruction Social History Tobacco Use Types Packs/Day Years Used Date Smoking Tobacco: Never Assessed Comments Unknown Sex and Gender Information Value Date Recorded Sex Assigned at Not on file Legal Sex Female 5:30 AM HOME CONNECT LPN Gender Identity Not on file Sexual Orientation [...] AM CDT Narrative 11/26/2007 4:48 PM CDT [place] [address] [place], [place] [address] Admit Date: 11/26/2007 ARACELI LIM Sex: F Admit Prov: BISMARK JADE Date: 1960 Primary Care Prov: CMRN: [id number] [id number] [facility] Ordering Prov: N/A Accession Number: [id number] Interpretation Right-sided antegrade nephrostogram and nephrostomy catheter [...] Procedure Note David Thomas MD - 11/26/2007 [place] [address] [place], [place] [address] Admit Date: 11/26/2007 ARACELI LIM Sex: F Admit Prov: BISMARK JADE Date: 1960 Primary Care Prov: CMRN: [id number] [id number] IM[facility]ING [facility] Ordering Prov: N/A Interpretation Right-sided [...] obstruction documented in this encounter Care Teams Fibre Technologist Relationship Specialty Start Date End Date Lucero Chirinos MD PCP - General Family Practice 01/22/15 documented as of this encounter
--- OUTSIDE RECORDS SUMMARY | 2025-08-14 12:26 | XMS_ITS | Encounter Summary ---
Author Organization [employer] Address [address] [place] [address] Care Team Providers Care Automotive Warranty Administrator Name Role Phone Lucero Chirinos MD Primary Care Provider [phone] Encounter Details Date Type Department Care Team (Late st Contact Info) Description 10/15/2007 Outpatient Historical [facility] Letha Jade MD [address] [place] [address] Other Ureteric Obstruction; Status of Other Artificial Opening of Urinary Tract (CMS/HCC); Other Specified Disorder of Bladder Social History Tobacco Use Types Packs/Day Years Used Date Smoking Tobacco: Never Assessed Comments Unknown Sex and Gender Information Value Date Recorded Sex Assigned at Not on file Legal Sex Female 5:30 AM VIDEO PRODUCTION SPECIALIST Gender Identity Not on file Sexual Orientation [...] CBC WITH DIFFERENTIAL Routine 11/03/2007 6:10 AM VIDEO PRODUCTION SPECIALIST BASIC METABOLIC PANEL Routine 11/03/2007 6:10 AM VIDEO PRODUCTION SPECIALIST URINE CULTURE Routine 10/31/2007 9:30 AM VIDEO PRODUCTION SPECIALIST documented in this encounter Results * (ABNORMAL) CBC WITH DIFFERENTIAL (11/06/2007 5:43 AM CDT) MCHC 31.8 31.5 - 35.5 % [facility] MCV 85.1 82.0 - 99.0 fL [facility] PLATELETS 199 140 - 350 K/uL [facility] HEMOGLOBIN 11.1(L) 11.8 - 14.8 g/dL [facility] RDW 14.4 11.5 - 14.5 % [facility] WBC 7.7 4.0 - 9.8 K/uL [facility] MCH 27.1(L) 27.2 - 32.6 pg [facility] MPV 11.0 9.3 - 12.4 fL [facility] HEMATOCRIT 34.9(L) 35.5 - 44.0 % [facility] RDW-STDEV 44.8 37.1 - 48.7 fL [facility] RBC 4.10 3.90 - 4.90 M/uL [facility] NEUTROPHILS 62 45 - 70 % [facility] NEUTROPHIL ABSOLUTE 4.73 1.90 - 7.00 K/uL [facility] EOSINOPHILS 4 0 - 7 % [facility] EOSINOPHIL ABSOLUTE 0.31 0.00 - 0.70 K/uL [facility] LYMPHOCYTES 21 16 - 45 % [facility] LYMPHOCYTE ABSOLUTE 1.61 0.70 - 4.50 K/uL [facility] BASOPHILS 0 0 - 2 % [facility] BASOPHILS ABSOLUTE 0.02 0.00 - 0.20 K/uL [facility] MONOCYTES 13 3 - 13 % [facility] MONOCYTE ABSOLUTE 1.00 0.10 - 1.30 K/uL [facility] Blood specimen (specimen) 11/06/2007 5:43 AM CDT 11/06/2007 6:57 AM CDT Letha Jade MD HEMATOLOGY ORDERABLES Edited INTERFACE SYSTEM Refer to clinic/hospital department [facility] [address] [place] [address] * (ABNORMAL) BASIC METABOLIC PANEL (11/06/2007 5:43 AM CDT) POTASSIUM 3.6 3.5 - 4.9 mmol/L [facility] CO2 27 22 - 30 mmol/L [facility] SODIUM 136 135 - 145 mmol/L [facility] BUN 7 6 - 20 mg/dL [facility] CALCIUM 8.6 8.4 - 10.2 mg/dL [facility] GLUCOSE 119(H) 65 - 99 mg/dL [facility] CHLORIDE 102 96 - 108 mmol/L [facility] CREATININE 0.69 0.51 - 0.95 mg/dL [facility] GFR, >60 >=60 mL/min/1. 7 sq meter [facility] GFR >60 >=60 mL/min/1. 7 sq meter [facility] Comment: Estimated GFR rate interpretative information for both Americans and non- Americans is available on the [facility] Intranet at: [email or web address] Select: Lab Policies and Procedures Select: Reference Ranges - GFR Blood specimen (specimen) 11/06/2007 5:43 AM CDT 11/06/2007 6:57 AM CDT Letha Jade MD CHEMISTRY ORDERABLES Edited [facility] [address] [place] [address] * (ABNORMAL) BASIC METABOLIC PANEL (11/05/2007 6:10 AM CDT) CHLORIDE 100 96 - 108 mmol/L [facility] GLUCOSE 117(H) 65 - 99 mg/dL [facility] SODIUM 136 135 - 145 mmol/L [facility] CALCIUM 8.2(L) 8.4 - 10.2 mg/dL [facility] CO2 27 22 - 30 mmol/L [facility] CREATININE 0.77 0.51 - 0.95 mg/dL [facility] POTASSIUM 3.9 3.5 - 4.9 mmol/L [facility] BUN 10 6 - 20 mg/dL [facility] GFR, >60 >=60 mL/min/1. 7 sq meter [facility] GFR >60 >=60 mL/min/1. 7 sq meter [facility] Comment: ansiEstimated GFR rate interpretative information for both Americans and non- Americans is available on the [facility] Intranet at: [email or web address] Select: Lab Policies and Procedures Select: Reference Ranges - GFR Blood specimen (specimen) 11/05/2007 6:10 AM CDT 11/05/2007 6:33 AM CDT Letha Jade MD CHEMISTRY ORDERABLES Edited [facility] [address] [place] [address] * (ABNORMAL) BASIC METABOLIC PANEL (11/04/2007 6:45 AM CDT) CALCIUM 8.3(L) 8.4 - 10.2 mg/dL [facility] CO2 30 22 - 30 mmol/L [facility] CREATININE 0.77 0.51 - 0.95 mg/dL [facility] POTASSIUM 3.6 3.5 - 4.9 mmol/L [facility] BUN 14 6 - 20 mg/dL [facility] CHLORIDE 103 96 - 108 mmol/L [facility] GLUCOSE 93 65 - 99 mg/dL [facility] SODIUM 140 135 - 145 mmol/L [facility] GFR, >60 >=60 mL/min/1. 7 sq meter [facility] GFR >60 >=60 mL/min/1. 7 sq meter [facility] Comment: Estimated GFR rate interpretative information for both Americans and non- Americans is available on the [facility] Intranet at: [email or web address] Select: Lab Policies and Procedures Select: Reference Ranges - GFR Blood specimen (specimen) 11/04/2007 6:45 AM CDT 11/04/2007 7:26 AM CDT Letha Jade MD CHEMISTRY ORDERABLES Edited [facility] [address] [place] [address] * (ABNORMAL) CBC WITH DIFFERENTIAL (11/04/2007 6:45 AM CDT) HEMATOCRIT 33.9(L) 35.5 - 44.0 % [facility] RDW-STDEV 45.6 37.1 - 48.7 fL [facility] RBC 3.95 3.90 - 4.90 M/uL [facility] MCHC 30.7(L) 31.5 - 35.5 % [facility] MCV 85.8 82.0 - 99.0 fL [facility] PLATELETS 203 140 - 350 K/uL [facility] HEMOGLOBIN 10.4(L) 11.8 - 14.8 g/dL [facility] RDW 14.6(H) 11.5 - 14.5 % [facility] WBC 9.8 4.0 - 9.8 K/uL [facility] MCH 26.3(L) 27.2 - 32.6 pg [facility] MPV 11.3 9.3 - 12.4 fL [facility] MONOCYTES 8 3 - 13 % [facility] MONOCYTE ABSOLUTE 0.81 0.10 - 1.30 K/uL [facility] NEUTROPHILS 71(H) 45 - 70 % [facility] NEUTROPHIL ABSOLUTE 6.93 1.90 - 7.00 K/uL [facility] EOSINOPHILS 0 0 - 7 % [facility] EOSINOPHIL ABSOLUTE 0.02 0.00 - 0.70 K/uL [facility] LYMPHOCYTES 21 16 - 45 % [facility] LYMPHOCYTE ABSOLUTE 2.02 0.70 - 4.50 K/uL [facility] BASOPHILS 0 0 - 2 % [facility] BASOPHILS ABSOLUTE 0.03 0.00 - 0.20 K/uL [facility] Blood specimen (specimen) 11/04/2007 6:45 AM CDT 11/04/2007 7:26 AM CDT us Letha Jade MD HEMATOLOGY ORDERABLES Edited INTERFACE SYSTEM Refer to clinic/hospital department [facility] [address] [place] [address] * (ABNORMAL) BASIC METABOLIC PANEL (11/03/2007 6:10 AM VIDEO PRODUCTION SPECIALIST) BUN 13 6 - 20 mg/dL [facility] CHLORIDE 107 96 - 108 mmol/L [facility] GLUCOSE 148(H) 65 - 99 mg/dL [facility] SODIUM 140 135 - 145 mmol/L [facility] CALCIUM 8.1(L) 8.4 - 10.2 mg/dL [facility] CO2 25 22 - 30 mmol/L [facility] CREATININE 0.76 0.51 - 0.95 mg/dL [facility] POTASSIUM 4.3 3.5 - 4.9 mmol/L [facility] GFR, >60 >=60 mL/min/1. 7 sq meter [facility] GFR >60 >=60 mL/min/1. 7 sq meter [facility] Comment: Estimated GFR rate interpretative information for both Americans and non- Americans is available on the [facility] Intranet at: [email or web address] Select: Lab Policies and Procedures Select: Reference Ranges - GFR Blood specimen (specimen) 11/03/2007 6:10 AM VIDEO PRODUCTION SPECIALIST 11/03/2007 6:24 AM VIDEO PRODUCTION SPECIALIST us Letha Jade MD CHEMISTRY ORDERABLES Edited [facility] [address] [place] [address] * (ABNORMAL) CBC WITH DIFFERENTIAL (11/03/2007 6:10 AM VIDEO PRODUCTION SPECIALIST) MCV 83.9 82.0 - 99.0 fL [facility] PLATELETS 214 140 - 350 K/uL [facility] HEMOGLOBIN 11.3(L) 11.8 - 14.8 g/dL [facility] RDW 14.6(H) 11.5 - 14.5 % [facility] WBC 14.2(H) 4.0 - 9.8 K/uL [facility] MCH 26.4(L) 27.2 - 32.6 pg [facility] MPV 10.9 9.3 - 12.4 fL [facility] HEMATOCRIT 35.9 35.5 - 44.0 % [facility] RDW-STDEV 44.2 37.1 - 48.7 fL [facility] RBC 4.28 3.90 - 4.90 M/uL [facility] MCHC 31.5 31.5 - 35.5 % [facility] EOSINOPHILS 0 0 - 7 % [facility] EOSINOPHIL ABSOLUTE 0.00 0.00 - 0.70 K/uL [facility] LYMPHOCYTES 8(L) 16 - 45 % [facility] LYMPHOCYTE ABSOLUTE 1.06 0.70 - 4.50 K/uL [facility] BASOPHILS 0 0 - 2 % [facility] BASOPHILS ABSOLUTE 0.02 0.00 - 0.20 K/uL [facility] MONOCYTES 5 3 - 13 % [facility] MONOCYTE ABSOLUTE 0.77 0.10 - 1.30 K/uL [facility] NEUTROPHILS 87(H) 45 - 70 % [facility] NEUTROPHIL ABSOLUTE 12.32(H) 1.90 - 7.00 K/uL [facility] Blood specimen (specimen) 11/03/2007 6:10 AM VIDEO PRODUCTION SPECIALIST 11/03/2007 6:24 AM VIDEO PRODUCTION SPECIALIST us Letha Jade MD HEMATOLOGY ORDERABLES Edited Performing Organization Address City/[facility]/ZIP Co de Phone Number INTERFACE SYSTEM Refer to clinic/hospital department [facility] [address] [place] [address] * URINE CULTURE (10/31/2007 9:30 AM VIDEO PRODUCTION SPECIALIST) PRELIMINARY REPORT Pending INTERFACE SYSTEM FINAL REPORT No growth 24 hours INTERFACE SYSTEM 10/31/2007 9:30 AM VIDEO PRODUCTION SPECIALIST 10/31/2007 11:21 AM VIDEO PRODUCTION SPECIALIST Letha Jade MD MICROBIOLOGY - GENERAL ORDER ROSARIO Final Result Performing Organization Address City/[facility] Phone Number INTERFACE SYSTEM Refer to clinic/hospital department documented in this encounter Visit Diagnoses Diagnosis Other ureteric obstruction Status of other artificial opening of urinary tract Other specified disorder of bladder documented in this encounter Care Teams Automotive Warranty Administrator Relationship Specialty Start Date End Date Lucero Chirinos MD PCP - General Family Practice 01/22/15 documented as of this encounter
--- OUTSIDE RECORDS SUMMARY | 2025-08-14 12:26 | XMS_ITS | Encounter Summary ---
Author Organization [employer] Address [address] [place] [address] Care Team Providers Care Animal Nutrition Consultant Name Role Phone Lucero Chirinos MD Primary Care Provider [phone] Encounter Details Date Type Department Care Team (Late st Contact Info) Description 12/03/2007 Outpatient Historical [facility] Letha Jade MD [address] [place] [address] Hydronephrosis Social History Tobacco Use Types Packs/Day Years Used Date Smoking Tobacco: Never Assessed Comments Unknown Sex and Gender Information Value Date Recorded Sex Assigned at Not on file Legal Sex Female 5:30 AM FOOD STAND MANAGER Gender Identity Not on file Sexual Orientation Not on file documented as of this encounter Plan of Treatment Not on file documented as of this encounter Visit Diagnoses Diagnosis Hydronephrosis documented in this encounter Care Teams Animal Nutrition Consultant Relationship Specialty Start Date End Date Lucero Chirinos MD PCP - General Family Practice 01/22/15 documented as of this encounter
--- OUTSIDE RECORDS SUMMARY | 2025-08-14 12:26 | XMS_ITS | Encounter Summary ---
Author Organization [facility] Address [address] [place] [address] Phone Care Team Providers Care County Coroner Name Role Phone Lucero Chirinos MD Primary Care Provider Reason for Visit * Reason Comments Medication Refill Encounter Details Date Type Department Care Team (Late st Contact Info) Description 10/14/20[facility] [place] [address] [place] [address] Lucero Chirinos MD [address] [place] [address] Medication Refill Social History Tobacco [...] Ana Ulrich RN - 10/14/2021 10:42 AM AIRCRAFT INSTRUMENT TESTER Medication failed the protocol, provider to review [...] Dept 03/26/21 Office Visit Lucero Chirinos MD [facility] [address] 02/22/21 Office Visit Chrissy Melissa APRN, NURSE DISCHARGE PLANNER [facility] Showing recent visits within past 365 [...] Dept 03/26/21 Office Visit Lucero Chirinos MD [facility] [address] 02/22/21 Office Visit Chrissy Melissa APRN, NURSE DISCHARGE PLANNER [facility] [address] Showing recent visits within past 365 [...] Range Status 03/22/2021 94.1 <130 mg/dL Final RAFT INSTRUMENT TESTER documented in this encounter Plan of Treatment Not on file documented as of this encounter Visit Diagnoses Diagnosis Acquired hypothyroidism Unspecified hypothyroidism documented in this encounter Additional Health Concerns Assessment Noted Time PHQ-9 Depression Total Score: 0 09/14/19 21 4:00 PM AIRCRAFT INSTRUMENT TESTER documented as of this encounter Care Teams County Coroner Relationship Specialty Start Date End Date Lucero Chirinos MD PCP - General Family Medicine 05/26/15 12/09/22 documented as of this encounter
--- OUTSIDE RECORDS SUMMARY | 2025-08-14 12:26 | XMS_ITS | Encounter Summary ---
Author Organization [facility] Address [address] [place] [address] Phone Care Team Providers Care Nurse Clinical Name Role Phone Unavailable Primary Care Provider Unavailabl e Reason for Visit * Reason Comments Medication Refill Encounter Details Date Type Department Care Team (Late st Contact Info) Description 01/13/2023 Refill [facility] [address] [place] [address] Inna Millan MD [address] [place] [address] Medication Refill Social History Tobacco Use Types [...] Total Score: 0 09/14/19 21 4:00 PM WIRE TWISTER documented as of this encounter
--- OUTSIDE RECORDS SUMMARY | 2025-08-14 12:26 | XMS_ITS | Encounter Summary ---
Author Organization [facility] Address [address] [place] [address] Care Team Providers Care Plant Operations Engineer Name Role Phone Lucero Chirinos MD Primary Care Provider [phone] Reason for Visit * Reason Comments Medication Refill Encounter Details Date Type Department Care Team (Late st Contact Info) Description 12/06/2015 Refill [facility] [address] [address] Liya Ring MD NO ADDRESS ON FILE Social History Tobacco Use Types Packs/Day Years Used Date Smoking Tobacco: Never Alcohol Use Standard Drinks/Week Comments Yes 0 (1 standard drink = 0.6 oz pur e alcohol) Rarely Comments No Sex and Gender Information Value Date Recorded Sex Assigned at Not on file Legal Sex Female 5:30 AM FILM PROCESSING UTILITY WORKER Gender Identity Not on file Sexual Orientation Not on file documented as of this encounter Plan of Treatment Not on file documented as of this encounter Visit Diagnoses Not on filedocumented in this encounter Care Teams Plant Operations Engineer Relationship Specialty Start Date End Date Lucero Chirinos MD PCP - General Family Practice 01/22/15 documented as of this encounter
--- OUTSIDE RECORDS SUMMARY | 2025-08-14 12:26 | XMS_ITS | Encounter Summary ---
Author Organization [facility] Address [address] [place] [address] Phone Care Team Providers Care Client Development Consultant Name Role Phone Lucero Chirinos MD Primary Care Provider Reason for Visit * Reason Comments Medication Refill Encounter Details Date Type Department Care Team (Late st Contact Info) Description 04/12/2021 [facility]ill [facility] - [place] [address] [place] [address] Lucero Chirinos MD [address] [place] [address] Medication Refill Social History Tobacco [...] Dept 03/26/21 Office Visit Lucero Chirinos MD [facility] 02/22/21 Office Visit Chrissy Melissa APN, DIE STORAGE WORKER [facility] 09/14/20 Office Visit Lucero Chirinos MD [facility] Showing recent visits within past [...] Dept 03/26/21 Office Visit Lucero Chirinos MD [facility] [place] [facility] 02/22/21 Office Visit Chrissy Melissa APN, CANDICE [facility] [place] [facility] 09/14/20 Office Visit Lucero Chirinos MD [facility] [place] [facility] Showing recent visits within past 365 [...] Dept 03/26/21 Office Visit Lucero Chirinos MD [facility] [place] [facility] 02/22/21 Office Visit Chrissy Melissa APN, CANDICE [facility] [place] [facility] 09/14/20 Office Visit Lucero Chirinos MD [facility] [place] [facility] Showing recent visits within past 365 [...] Total Score: 0 09/14/19 21 4:00 PM DIALYSIS BIOMED TECHNICIAN documented as of this encounter Care Teams Client Development Consultant Relationship Specialty Start Date End Date Lucero Chirinos MD PCP - General Family Medicine 05/26/15 12/09/22 documented as of this encounter
--- OUTSIDE RECORDS SUMMARY | 2025-08-14 12:26 | XMS_ITS | Encounter Summary ---
Author Organization [employer] [facility] Address [address] [place] [address] Care Team Providers Care Settlement Clerk Name Role Phone Lucero Chirinos MD Primary Care Provider [phone] Reason for Visit * Reason Comments Medication Refill Encounter Details Date Type Department Care Team (Late st Contact Info) Description 12/25/2015 Refill [facility] [address] [address] Liya Ring MD NO ADDRESS ON FILE Social History Tobacco Use Types Packs/Day Years Used Date Smoking Tobacco: Never Alcohol Use Standard Drinks/Week Comments Yes 0 (1 standard drink = 0.6 oz pur e alcohol) Rarely Comments No Sex and Gender Information Value Date Recorded Sex Assigned at Not on file Legal Sex Female 5:30 AM REPAIR TECHNICIAN Gender Identity Not on file Sexual Orientation Not on file documented as of this encounter Plan of Treatment Not on file documented as of this encounter Visit Diagnoses Not on filedocumented in this encounter Care Teams Settlement Clerk Relationship Specialty Start Date End Date Lucero Chirinos MD PCP - General Family Practice 01/22/15 documented as of this encounter
--- OUTSIDE RECORDS SUMMARY | 2025-08-14 12:26 | XMS_ITS | Encounter Summary ---
Author Organization [facility] Address [address] [place] [address] Phone Care Team Providers Care Clinical Research Nurse Name Role Phone Lucero Chirinos MD Primary Care Provider Reason for Visit * Reason Comments Medication Refill Encounter Details Date Type Department Care Team (Late st Contact Info) Description 10/06/20[facility] [place] [address] [place] [address] Lucero Chirinos MD [address] [place] [address] Medication Refill Social History Tobacco [...] Total Score: 0 09/14/19 21 4:00 PM TAILINGS DAM PUMPER documented as of this encounter Care Teams Clinical Research Nurse Relationship Specialty Start Date End Date Lucero Chirinos MD PCP - General Family Medicine 05/26/15 12/09/22 documented as of this encounter
--- OUTSIDE RECORDS SUMMARY | 2025-08-14 12:26 | XMS_ITS | Encounter Summary ---
Author Organization [facility] Address [address] [place] [address] Phone Care Team Providers Care Split And Drum Room Supervisor Name Role Phone Unavailable Primary Care Provider Unavailabl e Reason for Visit * Reason Comments Medication Refill Encounter Details Date Type Department Care Team (Late st Contact Info) Description 02/03/2023 Refill [facility] Family [facility] [address] [place] [address] Inna Millan MD [address] [place] [address] Medication Refill Social History Tobacco Use Types [...] Total Score: 0 09/14/19 21 4:00 PM MOTOR REBUILDER documented as of this encounter
--- OUTSIDE RECORDS SUMMARY | 2025-08-14 12:26 | XMS_ITS | Encounter Summary ---
Author Organization [employer] Address [address] [place] [address] Care Team Providers Care Street Department Dispatcher Name Role Phone Lucero Chirinos MD Primary Care Provider [phone] Encounter Details Date Type Department Care Team (Late st Contact Info) Description 08/09/2007 Outpatient Historical [facility] Letha Jade MD [address] [address] Meli Thomas MD Department of Radiology [address] [place], [place] [id number] Hydronephrosis; Other Ureteric Obstruction Social History Tobacco Use Types Packs/Day Years Used Date Smoking Tobacco: Never Assessed Comments Unknown Sex and Gender Information Value Date Recorded Sex Assigned at Not on file Legal Sex Female 5:30 AM HEATER MECHANIC Gender Identity Not on file Sexual Orientation Not on file documented as of this encounter Plan of Treatment Not on file documented as of this encounter Procedures Procedure Name Priority Date/Time Associated Diagnosis Comments PT AND APTT Routine 08/10/2007 11:41 AM HEATER MECHANIC PLATELET COUNT Routine 08/10/2007 11:41 AM HEATER MECHANIC BASIC METABOLIC PANEL Routine 08/10/2007 11:41 AM HEATER MECHANIC documented in this encounter Results * (ABNORMAL) BASIC METABOLIC PANEL (08/10/2007 11:41 AM HEATER MECHANIC) GLUCOSE 106(H) 65 - 99 mg/dL INTERFACE [...] and non- Americans is available on the [facility] Intranet at: [email or web address] [facility]: Lab Policies and Procedures [facility]: Reference Ranges - GFR 08/10/2007 11:4 1 AM HEATER MECHANIC Letha Jade MD CHEMISTRY ORDERABLES Edited Performing Organization Address [facility] de Phone Number INTERFACE SYSTEM Refer to clinic/hospital department * PLATELET COUNT (08/10/2007 11:41 AM HEATER MECHANIC) PLATELETS 339 140 - 350 K/uL INTERFACE SYSTEM MPV 10.7 9.3 - 12.4 fL INTERFACE SYSTEM 08/10/2007 11:4 1 AM HEATER MECHANIC Letha Jade MD HEMATOLOGY ORDERABLES Edited Performing Organization Address [facility] Co de Phone Number INTERFACE SYSTEM Refer to clinic/hospital department * (ABNORMAL) PT AND APTT (08/10/2007 11:41 AM HEATER MECHANIC) PROTIME 13.0 12.7 - 15.1 Seconds INTERFACE SYSTEM INR 1.0 0.9 - 1.1 INTERFACE SYSTEM Comment: INR Therapeutic Range: Adult: 2.0 - 3.0 for pulmonary embolism or prophylaxis against venous thrombosis or systemic embolization. 2.0 - 3.0 for patients with tissue heart valves. 2.5 - 3.5 for patients with mechanical heart valves or post [place]. Pediatric (12 years and under): 1.5 - [...] by repeat analysis. 08/10/2007 11:4 1 AM HEATER MECHANIC Letha Jade MD HEMATOLOGY ORDERABLES Edited INTERFACE SYSTEM Refer to clinic/hospital department documented in this encounter Visit Diagnoses Diagnosis Hydronephrosis Other ureteric obstruction documented in this encounter Care Teams Street Department Dispatcher Relationship Specialty Start Date End Date Lucero Chirinos MD PCP - General Family Practice 01/22/15 documented as of this encounter
--- OUTSIDE RECORDS SUMMARY | 2025-08-14 12:26 | XMS_ITS | Encounter Summary ---
Author Organization [facility] Address [address] [place] [address] Phone Care Team Providers Care Psychosocial Rehabilitation Counselor Name Role Phone Lucero Chirinos MD Primary Care Provider [phone] Reason for Visit * Reason Comments Medication Refill Encounter Details Date Type Department Care Team (Late st Contact Info) Description 09/29/2020 Refill [facility] - Primary Care - [place] [address] [place] [address] Lucero Chirinos MD [address] [place] [address] Medication Refill Social History Tobacco [...] COVID-19? No / Unsure 09/14/2020 3:59 PM HEAD OF STRATEGY documented as of this encounter Miscellaneous Notes [...] Outpatient Visits 2 weeks ago Essential hypertension [facility] Lucero Chirinos MD 6 months ago Physical exam, annual (Adult) [facility] Lucero Chirinos MD 1 year ago Essential hypertension [facility] Lucero Chirinos MD 1 year ago Physical exam, annual (Adult) [facility] Lucero Chirinos MD 2 years ago Essential hypertension [facility] Lucero Chirinos MD Upcoming Appointments Future Appointments In 3 months Lucero Chirinos MD [facility] - Recent and Past Visits Recent Visits Date Type Provider Dept 09/14/20 Office Visit Lucero Chirinos MD [facility] 03/10/20 Office Visit Lucero Chirinos MD [facility] 07/22/19 Office Visit Lucero Chirinos MD [facility] Showing recent visits within past 460 [...] Outpatient Visits 2 weeks ago Essential hypertension [facility] Lucero Chirinos MD 6 months ago Physical exam, annual (Adult) [facility] Lucero Chirinos MD 1 year ago Essential hypertension [facility] Lucero Chirinos MD 1 year ago Physical exam, annual (Adult) [facility] Lucero Chirinos MD 2 years ago Essential hypertension [facility] Lucero Chirinos MD Upcoming Appointments Future Appointments In 3 months Lucero Chirinos MD [facility] PEDIATRICIAN - Recent and Past Visits Recent Visits Date Type Provider Dept 09/14/20 Office Visit Lucero Chirinos MD [facility] 03/10/20 Office Visit Lucero Chirinos MD [facility] 07/22/19 Office Visit Lucero Chirinos MD [facility] Showing recent visits within past 460 [...] Outpatient Visits 2 weeks ago Essential hypertension [facility] Lucero Chirinos MD 6 months ago Physical exam, annual (Adult) [facility] Lucero Chirinos MD 1 year ago Essential hypertension [facility] Lucero Chirinos MD 1 year ago Physical exam, annual (Adult) [facility] Lucero Chirinos MD 2 years ago [facility] Upcoming Appointments Future Appointments In 3 months Lucero Chirinos MD [facility]IAN - Recent and Past Visits Recent Visits Date Type Provider Dept 09/14/20 Office Visit Lucero Chirinos MD [facility] 03/10/20 Office Visit Lucero Chirinos MD [facility] 07/22/19 Office Visit Lucero Chirinos MD [facility] Showing recent visits within past 460 days with a meds authorizing provider and meeting all other requirements Future Appointments No visits were found meeting these conditions. Showing future appointments within next 90 days with a meds authorizing provider and meeting all other requirements OF STRATEGY documented in this encounter Plan of Treatment Not on file documented as of this encounter Visit Diagnoses Diagnosis Essential hypertension Unspecified essential hypertension documented in this encounter Additional Health Concerns Assessment Noted Time PHQ-9 Depression Total Score: 0 09/14/19 4:00 PM HEAD OF STRATEGY documented as of this encounter Care Teams Psychosocial Rehabilitation Counselor Relationship Specialty Start Date End Date Lucero Chirinos MD PCP - General Family Medicine 05/26/15 12/09/22 documented as of this encounter
--- OUTSIDE RECORDS SUMMARY | 2025-08-14 12:26 | XMS_ITS | Encounter Summary ---
Author Organization [employer] Address [address] [place] [address] Care Team Providers Care Change Control Specialist Name Role Phone Lucero Chirinos MD Primary Care Provider [phone] Encounter Details Date Type Department Care Team (Late st Contact Info) Description 09/28/2007 Outpatient Historical [facility] Bismark Jade MD [address] [facility] [address] [place] [address] [place] [address] [facility] [address] [place] [address] Social History Tobacco Use Types Packs/Day Years Used Date Smoking Tobacco: Never Assessed Comments Unknown Sex and Gender Information Value Date Recorded Sex Assigned at Not on file Legal Sex Female 5:30 AM AUDIO VIDEO MECHANIC Gender Identity Not on file Sexual Orientation Not on file documented as of this encounter Plan of Treatment Not on file documented as of this encounter Procedures Procedure Name Priority Date/Time Associated Diagnosis Comments IR TUBE PLACEMENT Routine 09/28/2007 1:4 2 PM AUDIO VIDEO MECHANIC documented in this encounter Results * IR TUBE PLACEMENT (09/28/2007 1:42 PM AUDIO VIDEO MECHANIC) Anatomical Region Laterality Modality Other 09/28/2007 1:42 PM AUDIO VIDEO MECHANIC Narrative 09/29/2007 7:44 AM AUDIO VIDEO MECHANIC [facility] [address] [place], [place] [address] Admit Date: 09/28/2007 ARACELI LIM Sex: F Admit Prov: BISMARK JADE Date: 1960 Primary Care Prov: CMRN: [id number] [facility] [address] [place] [address] IMAGING SERVICES Ordering Prov: N/A Accession Number: [id number] Interpretation NEPHROSTOMY TUBE CHANGE 09/28/2007 History: Ureteral [...] removed and replaced with a new 8 Malaysian locking pigtail catheter. The catheter was secured to the skin and a sterile dressing was applied. The patient tolerated the procedure well with no immediate complications. Impression: Status post exchange of right nephrostomy tube. . Dictated by: JHONATAN STEPHEN 09/28/2007 14:17 Electronically signed by: JHONATAN STEPHEN 09/29/2007 07:44 Transcribed: 09/28/2007 14:55 SJ Procedure Note Jhonatan Stephen - 09/29/2007 [place] [address] [place], [place] [address] Admit Date: 09/28/2007 ARACELI LIM Sex: F Admit Prov: BISMARK JADE Date: 1960 Primary Care Prov: CMRN: [id number] [id number] IM[facility]ING SERVICES Ordering Prov: N/A Interpretation NEPHROSTOMY [...] on filedocumented in this encounter Care Teams Change Control Specialist Relationship Specialty Start Date End Date Lucero Chirinos MD PCP - General Family Practice 01/22/15 documented as of this encounter
--- OUTSIDE RECORDS SUMMARY | 2025-08-14 12:26 | XMS_ITS | Encounter Summary ---
Author Organization [employer] Address [address] [place] [address] Care Team Providers Care Jacquard Loom Carpet Weaver Name Role Phone Lucero Chirinos MD Primary Care Provider [phone] Encounter Details Date Type Department Care Team (Late st Contact Info) Description 08/01/2007 Outpatient Historical [facility] Letha Jade MD [address] [place] [address] Hydronephrosis Social History Tobacco Use Types Packs/Day Years Used Date Smoking Tobacco: Never Assessed Comments Unknown Sex and Gender Information Value Date Recorded Sex Assigned at Not on file Legal Sex Female 5:30 AM BOOKING POLICE OFFICER Gender Identity Not on file Sexual Orientation Not on file documented as of this encounter Plan of Treatment Not on file documented as of this encounter Visit Diagnoses Diagnosis Hydronephrosis documented in this encounter Care Teams Jacquard Loom Carpet Weaver Relationship Specialty Start Date End Date Lucero Chirinos MD PCP - General Family Practice 01/22/15 documented as of this encounter
--- OUTSIDE RECORDS SUMMARY | 2025-08-14 12:26 | XMS_ITS | Encounter Summary ---
Author Organization [facility] Address [address] [place] [address] Phone Care Team Providers Care Dowel Pin Worker Name Role Phone Lucero Chirinos MD Primary Care Provider Reason for Visit * Reason Comments Medication Refill Encounter Details Date Type Department Care Team (Late st Contact Info) Description 2021 Refill [facility] - [place] [address] [place] [address] Lucero Chirinos MD [address] [place] [address] Medication Refill Social History Tobacco [...] Dept 03/26/21 Office Visit Lucero Chirinos MD [facility] 02/22/21 Office Visit Chrissy Melissa APN, TECHNICAL SUPERVISOR [facility] 09/14/20 Office Visit Lucero Chirinos MD [facility] Showing recent visits within past [...] 3 weeks ago Essential hypertension [facility] Lucero Chirinos MD 1 month ago Bloody stools [facility] Chrissy Melissa APN, TECHNICAL SUPERVISOR 7 months ago Essential hypertension [facility] Lucero Chirinos MD 1 year ago Physical exam, annual (Adult) [facility] Lucero Chirinos MD 1 year ago Essential hypertension [facility] Lucero Chirinos MD Upcoming Appointments Future Appointments In 5 months Lucero Chirinos MD [facility] - Recent and Past Visits Recent Visits Date Type Provider Dept 03/26/21 Office Visit Lucero Chirinos MD [facility] 02/22/21 Office Visit Chrissy Melissa APN, TECHNICAL SUPERVISOR [facility] 09/14/20 Office Visit Lucero Chirinos MD [facility] 03/10/20 Office Visit Lucero Chirinos MD [facility] Showing recent visits within past [...] Depression Total Score: 0 09/14/19 4:00 PM FRETTED INSTRUMENT MAKER HAND documented as of this encounter Care Teams Dowel Pin Worker Relationship Specialty Start Date End Date Lucero Chirinos MD PCP - General Family Medicine 05/26/15 12/09/22 documented as of this encounter
--- OUTSIDE RECORDS SUMMARY | 2025-08-14 12:26 | XMS_ITS | Encounter Summary ---
Author Organization [employer] [facility] Address [address] [place] [address] Care Team Providers Care Life Insurance Salesperson Name Role Phone Lucero Chirinos MD Primary Care Provider [phone] Reason for Visit * Reason Comments Medication Refill Encounter Details Date Type Department Care Team (Late st Contact Info) Description 01/06/2016 Refill [facility] Breast [facility] Onc [address] [address] Liya Ring MD NO ADDRESS ON FILE Social History Tobacco Use Types Packs/Day Years Used Date Smoking Tobacco: Never Alcohol Use Standard Drinks/Week Comments Yes 0 (1 standard drink = 0.6 oz pur e alcohol) Rarely Comments No Sex and Gender Information Value Date Recorded Sex Assigned at Not on file Legal Sex Female 5:30 AM PIECE WORKER Gender Identity Not on file Sexual Orientation Not on file documented as of this encounter Plan of Treatment Not on file documented as of this encounter Visit Diagnoses Not on filedocumented in this encounter Care Teams Life Insurance Salesperson Relationship Specialty Start Date End Date Lucero Chirinos MD PCP - General Family Practice 01/22/15 documented as of this encounter
--- OUTSIDE RECORDS SUMMARY | 2025-08-14 12:26 | XMS_ITS | Encounter Summary ---
Author Organization [facility] Address [address] [place] [address] Phone Care Team Providers Care Digital Photographer Name Role Phone Unavailable Primary Care Provider Unavailabl e Reason for Visit * Reason Comments Medication Refill Encounter Details Date Type Department Care Team (Late st Contact Info) Description 01/19/2023 Refill [facility] [address] [place] [address] Lucero Chirinos MD [address] [place] [address] Medication Refill Social History Tobacco Use Types [...] Total Score: 0 09/14/19 21 4:00 PM GUEST SERVICES ASSOCIATE documented as of this encounter
--- OUTSIDE RECORDS SUMMARY | 2025-08-14 12:26 | XMS_ITS | Encounter Summary ---
Author Organization [employer] Address [address] [place] [address] Care Team Providers Care Oven Drier Tender Name Role Phone Lucero Chirinos MD Primary Care Provider [phone] Encounter Details Date Type Department Care Team (Late st Contact Info) Description 10/05/2007 Outpatient Historical [facility] Support Serv. (Adt Cardiology-[facility]) [address] [place] [id number] Solomon Cool MD NO ADDRESS ON FILE Social History Tobacco Use Types Packs/Day Years Used Date Smoking Tobacco: Never Assessed Comments Unknown Sex and Gender Information Value Date Recorded Sex Assigned at Not on file Legal Sex Female 5:30 AM OFFSET PRESSMAN Gender Identity Not on file Sexual Orientation Not on file documented as of this encounter Plan of Treatment Not on file documented as of this encounter Visit Diagnoses Not on filedocumented in this encounter Care Teams Oven Drier Tender Relationship Specialty Start Date End Date Lucero Chirinos MD PCP - General Family Practice 01/22/15 documented as of this encounter
--- OUTSIDE RECORDS SUMMARY | 2025-08-14 12:26 | XMS_ITS | Encounter Summary ---
Author Organization [employer] [facility] Address [address] [place] [address] Care Team Providers Care Labor Relations Worker Name Role Phone Lucero Chirinos MD Primary Care Provider [phone] Encounter Details Date Type Department Care Team (Late st Contact Info) Description 10/04/2007 Outpatient Historical [facility] Bismark Jade MD [address] [place] [address] Unspecified Urethral Stricture Social History Tobacco Use Types Packs/Day Years Used Date Smoking Tobacco: Never Assessed Comments Unknown Sex and Gender Information Value Date Recorded Sex Assigned at Not on file Legal Sex Female 5:30 AM WIRE WHEELER Gender Identity Not on file Sexual Orientation Not on file documented as of this encounter Plan of Treatment Not on file documented as of this encounter Procedures Procedure Name Priority Date/Time Associated Diagnosis Comments XR RETROGRADE PYELOGRM W WO KUB Routine 10/15/2007 7:20 AM WIRE WHEELER HEMOGLOBIN AND HEMATOCRIT Routine 10/05/2007 8:51 AM WIRE WHEELER documented in this encounter Results * XR RETROGRADE PYELOGRM W WO KUB (10/15/2007 7:20 AM WIRE WHEELER) Anatomical Region Laterality Modality Abdomen Other 10/15/2007 7:20 AM WIRE WHEELER Narrative 10/15/2007 5:36 PM WIRE WHEELER [facility] [place] [address] [place], [place] [address] Admit Date: 10/15/2007 ARACELI LIM Sex: F Admit Prov: BISMARK JADE Date: 1960 Primary Care Prov: PCP, UNKNOWN CMRN: [id number] [facility] [id number] IMAGING SERVICES Ordering Prov: N/A Accession Number: [id number] Interpretation EXAMINATION: C-ARM FLUOROSCOPY 10/15/2007 Clinical History: Pain. Findings: Fluoroscopy was provided to assist retrograde pyelogram. Multiple spot images were obtained which demonstrate opacification of the right collecting system. Impression: Fluoroscopy provided to assist procedure. . Dictated by: Wilberto WHITMORE 10/15/2007 17:19 Electronically signed by: Wilberto WHITMORE 10/15/2007 17:36 Transcribed: 10/15/2007 17:31 SJ Procedure Note Provider, Historical - 10/15/2007 [facility] [address] [place], [place] [address] Admit Date: 10/15/2007 ARACELI LIM Sex: F Admit Prov: BISMARK JADE Date: 1960 Primary Care Prov: PCP, UNKNOWN CMRN: [id number] Room: [facility] SSN: [id number] IMAGING SERVICES Ordering Prov: N/A Interpretation EXAMINATION: [...] * HEMOGLOBIN AND HEMATOCRIT (10/05/2007 8:51 AM WIRE WHEELER) HEMOGLOBIN 12.6 11.8 - 14.8 g/dL INTERFACE SYSTEM HEMATOCRIT 39.4 35.5 - 44.0 % INTERFACE SYSTEM 10/05/2007 8:51 AM WIRE WHEELER Bismark Jade MD HEMATOLOGY ORDERABLES Final Result INTERFACE SYSTEM Refer to clinic/hospital department documented in this encounter Visit Diagnoses Diagnosis Urethral stricture unspecified Urethral stricture, unspecified documented in this encounter Care Teams Labor Relations Worker Relationship Specialty Start Date End Date Lucero Chirinos MD PCP - General Family Practice 01/22/15 documented as of this encounter
--- OUTSIDE RECORDS SUMMARY | 2025-08-14 12:26 | XMS_ITS | Encounter Summary ---
Author Organization [facility] Address [address] [place] [address] Phone Care Team Providers Care Vault Manager Name Role Phone Unavailable Primary Care Provider Unavailabl e Reason for Visit * Reason Comments Medication Refill Encounter Details Date Type Department Care Team (Late st Contact Info) Description 01/31/2023 Refill [facility] - Family Medicine [facility] [address] [place] [address] Inna Millan MD [address] [place] [address] Medication Refill Social History Tobacco Use Types [...] Total Score: 0 09/14/19 21 4:00 PM SUPERVISOR CUSTOMER COMPLAINT SERVICE documented as of this encounter
--- OUTSIDE RECORDS SUMMARY | 2025-08-14 12:27 | XMS_ITS | Clinical Summary ---
Author Organization [facility] [place] [address] Address [address] [place] [address] Care Team Providers Care Makeup Artist Name Role Phone CarlosAmina motleyMadiha PA Unavailable [phone] Siva Boswell MD Unavailable Brenda Carmona NP Primary Care Provider [phone] Allergies Active Allergy Reactions Criticality Noted Date [...] 1 tablet (112 mcg total) by mouth purchase order checker before breakfast 90 tablet 3 2024 Active [...] provided. Assessment & Plan (10/09/2024 11:09 AM SELF STORAGE MANAGER): BMI Follow-up includes: nutrition counseling. Assessment & [...] CDT): Assessment & Plan (09/06/2024 10:24 AM SELF STORAGE MANAGER): Clinically euthyroid. Refill levothyroxine 112 mcg daily. [...] today Assessment & Plan (10/09/2024 11:08 AM SELF STORAGE MANAGER): Last A1c 6% in 2022. Will recheck with labs. Assessment & Plan (03/14/2024 6:40 PM CDT): Chronic. Control uncertain. Encouraged healthy diet, exercise and weight loss. Monitor H/O bilateral mastectomy 03/23/2018 Hyperlipidemia 09/18/2017 Assessment & Plan (04/07/2025 7:29 AM CDT): Assessment & Plan (09/06/2024 10:24 AM SELF STORAGE MANAGER): Chronic, continue simvastatin 10 mg daily. Assessment [...] CDT): Assessment & Plan (09/06/2024 10:23 AM SELF STORAGE MANAGER): Chronic. HTN controlled. Refill amlodipine and lisinopril. [...] citalopram Assessment & Plan (09/06/2024 10:23 AM SELF STORAGE MANAGER): Anxiety is chronic and well controlled. Refill citalopram 20 mg Assessment & Plan (03/14/2024 6:40 PM CDT): Chronic. Controlled. Continue citalopram as patient is not yet willing to consider weaning the dose. Brief supportive counseling provided HX: breast cancer 05/21/2009 Overview (04/20/2021): Overview: Dx in 2001. Left Breast T1 N0 Stage 1, ER (+) CA (+) HER2 (+), Tamoxifen Dx in 2001. Left Breast T1 N0 Stage 1, ER (+) CA (+) HER2 (+), Tamoxifen Resolved Problems Problem Noted Date Diagnosed Date Resolved Date Primary osteoarthritis of both knees 06/21/2022 02/07/2023 Arthritis of knee 06/21/2022 02/07/2023 Ventricular premature complexes 03/21/2017 02/07/2023 Palpitations 02/21/2017 03/14/2024 IFG (impaired fasting glucose) 01/20/2017 02/07/2023 Obesity (BMI 30-39.9) 11/18/20162022 Osteoarthritis of both knees 12/17/2015 02/07/2023 Encounters Date Type Department Care Team Description 08/14/2025 8:15 AM SELF STORAGE MANAGER Office Visit [facility] at [address] [address] Joy Tran NP Acute left flank pain (Primary Dx) 06/11/2025 Results Follow-Up [facility] Primary [facility] at [address] [id number] Batsheva Gonzalez NP CBC with auto differential, Comprehensive metabolic panel, Lipid panel, Additional followed-up results: 5 06/06/2025 8:25 AM CDT Lab [address] [address] Screening for deficiency anemia; Screening for metabolic [...] Repeat in [address] Andrew SECTION [id number] Medical History Medical History Date Comments Osteoarthritis [...] on file Legal Sex Female 12:27 AM SELF STORAGE MANAGER Gender Identity Not on file Sexual Orientation Not on file Last Filed Vital Signs Vital Sign Reading Time Taken Comments Blood Pressure 128/82 08/14/2025 8:11 AM SELF STORAGE MANAGER Pulse 77 08/14/2025 8:08 AM SELF STORAGE MANAGER Temperature 36.3 C (97.4 F) 08/14/2025 8:08 AM SELF STORAGE MANAGER Respiratory Rate 18 08/14/2025 8:08 AM SELF STORAGE MANAGER Oxygen Saturation 96% 08/14/2025 8:08 AM SELF STORAGE MANAGER Inhaled Oxygen Concentration - - Weight 123.3 kg (271 lb 12.8 oz) 08/14/2025 8:08 AM SELF STORAGE MANAGER Height 165.1 cm (5' 5) 08/14/2025 8:08 AM SELF STORAGE MANAGER Body Mass Index 45.23 08/14/2025 8:08 AM SELF STORAGE MANAGER Plan of Treatment Health Maintenance Due Date [...] Completed 03/13/2023 Medical Devices Implanted Type Area Senior Benefits Manager Device Identifier Shelf Expiration Date Model / Serial / Lot [employer] [id number] Attune Cruciate Retain Cementless Knee Left 4 Component Femoral - [id number] Implanted:Qty: 1 on 12/21/2021 by Siva Boswell MD at [facility] Left: Knee [employer] 08/27/2029 [id number] / / [id number] [employer] [id number] Attune 6mm Cruciate Retaining Rotate Platform Knee 4 Insert - [id number] Implanted:Qty: 1 on 12/21/2021 by Siva Boswell MD at [facility] Left: Knee [employer] 08/27/2026 [id number] / / [id number] [employer] [id number] Attune Cementless Rotate Platform Knee 4 Baseplate Tibial - [id number] Implanted:Qty: 1 on 12/21/2021 by Siva Boswell MD at [facility] Left: Knee [employer] 05/27/2031 [id number] / / [id number] [employer] Attune Fb Tib Base Sz 4 Por [id number] - [id number] Implanted:Qty: 1 on 06/21/2022 by Siva Boswell MD at [facility] Right: Knee [employer] 10/26/2031 [id number] / / [id number] [employer] Attune Cruciate Retain Cementless Knee Right 4 Component Femoral [id number] - [id number] Implanted:Qty: 1 on 06/21/2022 by Siva Boswell MD at [facility] Right: Knee [employer] 07/27/2029 [id number] / / [id number] [employer] Attune 6mm Cruciate Retaining Fix Bearing Knee 4 Insert Tibial [id number] - [id number] Implanted:Qty: 1 on 06/21/2022 by Siva Boswell MD at [facility] Right: Knee [employer] 02/24/2027 [id number] / / [id number] Procedures Procedure Name Priority Date/Time Associated Diagnosis Comments POCT URINALYSIS DIPSTICK Routine 08/14/2025 8:43 AM SELF STORAGE MANAGER Acute left flank pain EGFR Routine 06/06/2025 [...] * POCT urinalysis dipstick (08/14/2025 8:43 AM SELF STORAGE MANAGER) Color, Urine, POC Yellow Clarity, ur, POC Clear Clear Glucose, ur, POC Negative Negative Bilirubin, ur, POC Negative Negative Ketones, ur, POC Negative Negative Specific [place], POC 1.030 1.003 - 1.030 Blood, ur, POC Negative Negative pH, ur, POC 6.0 5.0 - 8.0 Protein, ur, POC Negative Negative Urobilinogen, urine, POC 0.2 0.2 - 1.0 mg/dL Nitrite, ur, POC Negative Negative Leukocytes, ur, POC Negative Negative Lot Number [id number] Urine 08/14/2025 8:43 AM SELF STORAGE MANAGER Joy Tran NP POINT OF CARE TEST [...] CDT 06/06/2025 10:43 AM CDT Brenda Carmona ADULT NURSE PRACTITIONER LAB BLOOD ORDERABLES Final Re sult [facility] [address] [facility] Department [place] [address] * Differential, auto (06/06/2025 8:49 AM CDT) Neutrophil abs 5.06 1.50 - 6.50 K/cumm Imm gran abs 0.02 0.00 - 0.10 K/cumm [facility] Lymphocyte abs 2.39 0.80 - 3.30 K/cumm [facility] Monocyte abs 0.80 0.20 - 0.80 K/cumm [facility] Eosinophil abs 0.26 0.00 - 0.50 K/cumm [facility] Basophil abs 0.06 0.00 - 0.10 K/cumm [facility] Neutrophil pct 59.0 % [facility] Comment: Interpretive Data Percent cell count reference ranges are not reported, since discordance with absolute values may lead to misinterpretation of CBC data. Current Interpretive Data was last revised on 2017. Imm gran pct 0.2 % [facility] Comment: Interpretive Data Percent cell count reference ranges are not reported, since discordance with absolute values may lead to misinterpretation of CBC data. Current Interpretive Data was last revised on 2017. Lymphocyte pct 27.8 % [facility] Comment: Interpretive Data Percent cell count reference ranges are not reported, since discordance with absolute values may lead to misinterpretation of CBC data. Current Interpretive Data was last revised on 2017. Monocyte pct 9.3 % [facility] Comment: Interpretive Data Percent cell count reference ranges are not reported, since discordance with absolute values may lead to misinterpretation of CBC data. Current Interpretive Data was last revised on 2017. Eosinophil pct 3.0 % [facility] Comment: Interpretive Data Percent cell count reference ranges are not reported, since discordance with absolute values may lead to misinterpretation of CBC data. Current Interpretive Data was last revised on 2017. Basophil pct 0.7 % [facility] Comment: Interpretive Data Percent cell count reference ranges are not reported, since discordance with absolute values may lead to misinterpretation of CBC data. Current Interpretive Data was last revised on 2017. Blood 06/06/2025 8:49 AM CDT 06/06/2025 10:43 AM CDT Brenda Carmona NP LAB BLOOD ORDERABLES Final Re sult [facility] [address] [facility] Department [place] [address] * Thyroid Function [place] (06/06/2025 8:49 AM CDT) TSH 1.59 0.30 - 4.20 mcIUnit/mL Blood 06/06/2025 8:49 AM CDT 06/06/2025 10:43 AM CDT Brenda Carmona NP LAB BLOOD ORDERABLES Final Re sult [facility] [address] [place] [address] * (ABNORMAL) CBC with auto differential (06/06/2025 8:49 AM CDT) [facility] WBC 8.59 3.80 - 9.90 K/cumm Hgb 13.8 11.9 - 15.5 g/dL [facility] Hct 43.9 35.6 - 45.5 % [facility] Plt 434(H) 150 - 400 K/cumm [facility] MPV 10.6 9.1 - 12.3 fL [facility] RBC 4.98 3.90 - 5.20 M/cumm [facility] MCV 88.2 81.3 - 96.4 fL [facility] MCH 27.7 27.1 - 33.3 pg [facility] MCHC 31.4(L) 32.3 - 35.7 g/dL [facility] RDW CV 14.0 11.1 - 14.9 % [facility] RDW SD 44.7 35.7 - 48.1 fL [facility] NRBC abs 0.00 0.00 - 0.01 K/cumm [facility] Blood 06/06/2025 8:49 AM CDT 06/06/2025 10:43 AM CDT Brenda Carmona NP LAB BLOOD ORDERABLES Final Re sult Performing Organization Address [facility]/ZIP Co de Phone Number LEAN[facility] [address] [place] [address] * (ABNORMAL) Hemoglobin A1c (06/06/2025 8:49 AM CDT) [facility] Hgb A1C 6.1(H) 4.0 - 5.6 % Estimated Average Glucose 128 mg/dL [facility] Comment: The ADA recommends reporting an estimated Average Glucose (eAG) with all Hemoglobin A1c results using the equation derived from a study of 507 normal and diabetic adults. Minority populations were underrepresented and children were not included. (Diabetes Care 31:7551-4071, 2008). The eAG is not equivalent to a fasting glucose. Blood 06/06/2025 8:49 AM CDT 06/06/2025 10:43 AM CDT Brenda Carmona NP LAB BLOOD ORDERABLES Final Re sult Performing Organization Address [facility] de Phone Number [address] [address] * (ABNORMAL) Vitamin B12 (06/06/2025 8:49 AM CDT) Vitamin B12 198(L) 230 - 1,250 pg/mL Blood 06/06/2025 8:49 AM CDT 06/06/2025 10:43 AM CDT Brenda Carmona LAB BLOOD ORDERABLES Final Re sult Performing Organization Address [facility] de Phone Number [address] [address] * (ABNORMAL) Lipid panel (06/06/2025 8:49 AM [...] revised on 2024. Non-HDL Cholesterol 111 mg/dL [facility] Comment: Interpretive Data Ages < or [...] last revised on 2018. Chol/HDL ratio 4 [facility] Blood 06/06/2025 8:49 AM CDT 06/06/2025 10:43 AM CDT Brenda Carmona NP LAB BLOOD ORDERABLES Final Re sult [facility] [address] [facility] Department [place] [address] * (ABNORMAL) Comprehensive metabolic panel (06/06/2025 8:49 AM CDT) Sodium 139 135 - 145 mmol/L Potassium, pl 4.5 3.3 - 4.9 mmol/L [facility] Chloride 103 97 - 110 mmol/L [facility] CO2 28 22 - 32 mmol/L [facility] Anion gap 8 2 - 15 mmol/L [facility] BUN 14 6 - 25 mg/dL [facility] Creatinine 0.76 0.60 - 1.10 mg/dL [facility] Glucose 118 70 - 199 mg/dL [facility] Comment: Interpretive Data Fasting glucose >/= [...] 2022. Calcium 10.5(H) 8.5 - 10.3 mg/dL [facility] Bilirubin, total 0.5 0.1 - 1.2 mg/dL [facility] Protein, pl 6.9 6.5 - 8.5 g/dL [facility] Albumin 4.1 3.5 - 5.0 g/dL [facility] Alk phos 63 40 - 130 Units/L [facility] ALT 15 7 - 45 Units/L [facility] AST 23 10 - 45 Units/L [facility] Blood 06/06/2025 8:49 AM CDT 06/06/2025 10:43 AM CDT Brenda Carmona NP LAB BLOOD ORDERABLES Final Re sult Performing Organization Address [facility] Co de Phone Number [facility] [address] [facility] Department [place] [address] * Hepatitis C antibody (03/13/2023 8:48 AM CDT) Hep C Ab Nonreactive Nonreactive [facility] Comment: Interpretive Data Nonreactive: Antibodies to HCV [...] MICROBIOLOGY - GEN ERAL ORDERABLES Final Result [facility] [address] Department [place] [address] * HM COLONOSCOPY (02/16/2023 4:30 PM CDT) us Historical Provider HEALTH MAINTENANCE Final Result from Last 3 Months or Most Recently Relevant to Health Maintenance Insurance [employer] ACCESS Advance Directives For more information, please contact: [phone] * Full Code (Latest Code Status on File) Date Activated Date Inactivated Comments 06/21/2022 4:34 PM 06/22/2022 8:04 PM * Full Code Date Activated Date Inactivated Comments 12/21/2021 1:16 PM 12/23/2021 7:53 PM Care Teams Makeup Artist Relationship Specialty Start Date End Date Brenda Carmona NP [address] [facility] [address] [place] [address] PCP - General Family Medicine 10/09/24 Amina Gonzalez PA Physician Radiology Scheduler Orthopedic Surgery 12/22/21 Siva Boswell MD [address] [facility] [address] [place] [address] [address] Surgeon Orthopedic Surgery 04/28/22
--- OUTSIDE RECORDS SUMMARY | 2025-08-14 12:27 | XMS_ITS | Clinical Summary ---
Author Organization [employer] [facility] Address [address] [place] [address] Phone Care Team Providers Care Mobile Electronics Installer Name Role Phone Lucero Chirinos MD Primary Care Provider [phone] Allergies No known active allergies Medications ibuprofen [...] Breast T1 N0 Stage 1, ER (+) NH (+) HER2 (+), Tamoxifen Family History Medical [...] on file Legal Sex Female 5:30 AM VISUAL AID EXPERT Gender Identity Not on file Sexual Orientation [...] 5.9 4.1 - 6.1 % of Hgb [facility] EST. AVG GLUCOSE, A1C 123 mg/dL [facility] Comment: The reported estimated average glucose (eAG) based on the HbA1c determination is calculated using the ADAG study equation. Further interpretative information is available in the Laboratory Services Policy Manual on the [facility] Intranet at: [email or web address]/ Blood 01/21/2014 2:22 PM CDT 01/21/2014 9:17 PM CDT Liya Ring MD CHEMISTRY ORDERABLES Final Res ult [facility] CLIA# [id number] [address] [place] [address] * XR DEXA BONE DENSITY AXIAL 1 OR MORE SITES (12/07/2011) T-SCORE FEMUR (LEFT) EXTERNAL RADIOLOGY T-SCORE FEMUR (RIGHT) EXTERNAL RADIOLOGY T-SCORE FEMUR >=-0.99 RN PICU AL RADIOLOGY T-SCORE SPINE >=-0.99 RN PICU AL RADIOLOGY T-SCORE HIP (LEFT) EXTERNAL RADIOLOGY T-SCORE HIP (RIGHT) EXTERNAL RADIOLOGY T-SCORE HIP >=-0.99 EXTERNAL RADIOLOGY Anatomical Region Laterality Modality Other Liya Ring MD DIAGNOSTIC IMAGING ORDERABLES Final Result from Last 3 Months or Most Recently Relevant to Health Maintenance Insurance Care Teams Mobile Electronics Installer Relationship Specialty Start Date End Date Lucero Chirinos MD PCP - General Family Practice 01/22/15
[2025-08-14 12:38] VITALS: BP 152/99; PULSE 69; RESP 18; O2SAT 99
--- NOTE | 2025-08-14 18:11 | ED.GENADULT ---
HPI - General Adult General Chief complaint: Urogenital-Female Stated complaint: L flank pain Time Seen by Provider: 08/14/25 09:32 History of Present Illness HPI narrative: Patient presenting with left flank pain, has history of kidney stones in the past, no blood, no nausea, not as painful as it usually is. No recent trauma she can think of. No focal numbness or weakness or tingling and no radiation of the pain Related Data Home Medications ?Medication ?Instructions ?Recorded ?Confirmed ?Last Taken ?Type celecoxib 100 mg capsule 100 mg PO BID 02/15/21 07/29/22 07/04/21 History citalopram 20 mg tablet 20 mg PO DAILY 02/15/21 07/29/22 07/04/21 History lisinopril 30 mg tablet 30 mg PO DAILY 02/15/21 07/29/22 07/04/21 History simvastatin 5 mg tablet 5 mg PO DAILY 04/08/21 07/29/22 07/04/21 History cholecalciferol (vitamin D3) 125 125 mcg PO DAILY 06/14/21 07/29/22 07/04/21 History mcg (5,000 unit) tablet (Vitamin D3) levothyroxine 112 mcg tablet 112 mcg PO DAILY 06/14/21 07/29/22 07/04/21 History amlodipine 5 mg tablet 5 mg PO DAILY 07/25/22 07/29/22 Unknown History hydrochlorothiazide 12.5 mg tablet 12.5 mg PO DAILY 07/25/22 07/29/22 Unknown History Allergies Allergy/AdvReac Type Severity Reaction Status Date / Time gadobenic acid (From Allergy Unknown Hives Verified 08/14/25 11:11 contrast - MRI) Iodinated Contrast Media Allergy Unknown Hives Verified 08/14/25 11:11 iohexol (From contrast - CT, Allergy Unknown Hives Verified 08/14/25 11:11 X-RAY) adhesive tape Allergy Blister Verified 08/14/25 11:11 Review of Systems Review of Systems: All systems reviewed & are unremarkable except as noted in HPI and below PMFSH Past Medical History Medical History Anxiety Breast cancer Colon cancer screening Disorder of thyroid HTN (hypertension) Hypothyroidism Surgical History Surgical History H/O mastectomy Family History Family History Mother Cancer Hypertension Disorder of thyroid Social History Social History Smoking status: Never smoker Alcohol intake: current Drinks per week: 1 Alcohol use details: 2 Substance use: former Substance use type: marijuana Other substance usage details: OCCASIONALLY Living arrangements: with family Spiritual care concerns: No Exam Narrative: EXAMINATION OF ORGAN SYSTEMS/BODY AREAS: Constitutional: Vital signs per nursing GENERAL:No acute distress, non-toxic appearing. HEAD: Normal with no signs of head trauma. EYES: EOMI, conjunctiva normal ENT: Hearing grossly intact LUNGS: Nonlabored breathing. HEART: Regular rate and rhythm ABD: Soft, nontender to palpation EXT: Normal range of motion SKIN: No rashes or lesions. NEURO: Alert. No gross focal sensory or strength deficits. PSYCH: Normal affect Course Vital Signs Vital signs: Vital Signs Temperature 97.6 F 08/14/25 09:33 Pulse Rate 93 08/14/25 09:33 Respiratory Rate 15 08/14/25 09:33 Blood Pressure 168/80 H 08/14/25 09:33 Pulse Oximetry 98 08/14/25 09:33 Oxygen Delivery Room Air 08/14/25 09:33 Temperature 97.6 F 08/14/25 09:33 Pulse Rate 69 08/14/25 12:38 Respiratory Rate 18 08/14/25 12:38 Blood Pressure 152/99 H 08/14/25 12:38 Pulse Oximetry 99 08/14/25 12:38 Oxygen Delivery Room Air 08/14/25 09:33 [facility] MDM Narrative Medical decision making narrative: Electronic medical record was reviewed. Patient presented to the ED with complaint of left flank pain, nonradiating, no nausea or vomiting, with history of kidney stones. Vitals were within acceptable limits. Physical exam revealed soft abdomen, nontender to palpation. . CBC, BMP, lipase, LFTs, bilirubin and alk phos were obtained. Labs were pertinent for normal CBC, CMP, urinalysis. Decision was made to obtain a CT-abdomen to evaluate for acute abdominal process. CT-abdomen per radiology interpretation is unremarkable for acute intra-abdominal process, no signs of hydronephrosis, cholecystitis, appendicitis. Findings discussed with patient. Small dose of Valium given for possible anxiety of patient now tearful, as well as for possible back spasm. There were no witnessed episodes of vomiting in the emergency department. They are not complaining of any new abdominal pain. Repeat examination did not show any significant guarding or rebound. No new tenderness. At this time I do not feel there is any further emergent treatment to be provided. The patient was given strict return precautions, if they are to develop any worsening abdominal pain, vomiting, or blood in the vomit they are to return to the emergency department immediately. Patient verbally acknowledges understanding these directions. The patient was informed of the above diagnostic test findings. No further workup is necessary at this time. They will be discharged home with prescriptions. They were advised to follow-up with their PCP in 2 days. The patient feels that this is appropriate medical decision making and verbalizes an understanding of the discharge instructions. Differential Diagnosis Differential Diagnosis: Back spasm, kidney stone, kidney infection, etc. Lab Data 08/14/25 09:30 08/14/25 09:30 Labs: Lab Results 08/14/25 08/14/25 Range/Units 09:30 11:28 WBC 7.5 (4.5-10.0) K/mm3 RBC 5.33 (4.2-5.4) M/mm3 Hgb 14.5 (12.0-15.0) g/dL Hct 46.2 (37.0-47.0) % MCV 86.7 (80-100) fl MCH 27.2 (26-34) pg MCHC 31.4 L (32-36) g/dl RDW 13.7 (11.5-14.5) % Plt Count 424 H (150-375) k/mm3 MPV 10.3 (7.4-10.4) fl Immature Gran % (Auto) 0.3 (0-0.5) % Neut % (Auto) 59.2 (45.5-73.1) % Lymph % (Auto) 28.6 (18.3-44.2) % Mckenzie % (Auto) 8.1 (2.6-8.5) % Eos % (Auto) 3.1 (0-4.4) % Baso % (Auto) 0.7 (0.2-1.2) % Lymph # (Auto) 2.16 (0.9-3.2) K/mm3 Mckenzie # (Auto) 0.6 (0.1-0.6) K/mm3 Eos # (Auto) 0.2 (0-0.3) K/mm3 Baso # (Auto) 0.1 (0.0-0.1) K/mm3 Abs Immat Gran (auto) 0.02 (0.00-0.031) K/mm3 Absolute Neuts (auto) 4.5 (1.3-6.7) K/mm3 Absolute Nucleated RBC 0.000 (0.0-0.012) K/mm3 Nucleated RBC % 0.0 (0.0-0.2) % Sodium 138 (137-145) mmol/L Potassium 4.3 (3.4-5.0) mmol/L Chloride 106 (98-107) mmol/L Carbon Dioxide 27 (22-30) mmol/L Anion Gap 5 (4-12) mmol/L BUN 16 (7-17) mg/dL Creatinine 0.70 (0.7-1.0) mg/dL Estim Creat Clear Calc 91 ml/min Estimated GFR > 60 (59 - ) Glucose 105 (65-110) mg/dL Calcium 9.6 (8.4-10.2) mg/dL Total Bilirubin 0.7 (0.2-1.3) mg/dL AST 28 (14-36) U/L ALT 23 (6-35) U/L Alkaline Phosphatase 69 (38-126) U/L Total Protein 7.8 (6.3-8.2) g/dL Albumin 4.3 (3.5-5.1) g/dL Urine Color Yellow (Yellow) Urine Appearance Clear (Clear) Urine pH 7.0 (5.0-9.0) Ur Specific [place]im 1.017 (1.001-1.035) Urine Protein Negative (Negative) mg/dL Urine Glucose (UA) Negative (Negative) mg/dL Urine Ketones Negative (Negative) mg/dL Ur Blood (Man) Negative (Negative) Urine Nitrate Negative (Negative) Urine Bilirubin Negative (Negative) Urine Urobilinogen 0.2 (<2.0) mg/dL Leukocyte Esterase Rfl Negative (Negative) MARIANN/UL Imaging Data Radiologist's impression: ITS Impressions Abdomen/Pelvis CT 08/14/25 11:17 IMPRESSION: 1. No acute intra-abdominal/pelvic process. 2. Nonobstructing right nephrolithiasis. 3. Large infraumbilical ventral hernia containing nonobstructed large and small bowel as well as a normal appendix. Discharge Plan Discharge Clinical Impression: Flank pain Patient Disposition: Home Condition: Stable Instructions: Flank Pain (ED) Additional Instructions: Your CT scan today thankfully does not show any obvious stones, urine does not show any infection. Please follow up with your doctor; you can always return for any further issues. Patient Language: Jordanian Prescriptions: New methocarbamol 750 mg tablet 750 mg PO TID PRN (Reason: muscle spasm) Qty: 30 0RF lidocaine 5 % adhesive patch,medicated 1 patch topical DAILY Qty: 15 0RF Rx Instructions: leave on most painful area for up to 12 hrs No Action simvastatin 5 mg tablet 5 mg PO DAILY citalopram 20 mg tablet 20 mg PO DAILY lisinopril 30 mg tablet 30 mg PO DAILY celecoxib 100 mg capsule 100 mg PO BID levothyroxine 112 mcg tablet 112 mcg PO DAILY cholecalciferol (vitamin D3) [Vitamin D3] 125 mcg (5,000 unit) Tablet 125 mcg PO DAILY amlodipine 5 mg tablet 5 mg PO DAILY hydrochlorothiazide 12.5 mg tablet 12.5 mg PO DAILY Follow-up/Referrals: Kristine,CAROLYNN Montanez [Primary Care Provider, Unknown]
== END 2025-08-14 12:40 | disposition home or self-care (01) ==
PROVIDERS: Emergency Provider Emergency Medicine; PCP Nurse Practitioner Family
DX: R10.A2 Flank pain, left side (principal); I10 Essential (primary) hypertension; Z85.3 Personal history of malignant neoplasm of breast; E03.9 Hypothyroidism, unspecified
CPT/HCPCS: 36415; 74176; 80053; 81003; 85025; 96374; 99284; J3360